=== PATIENT | female | born 1955 | race Hispanic/Latino ===

== ENCOUNTER 2019-06-05 11:36 | Emergency (ER) | payer MEDICARE ==
[2019-06-05 12:24] VITALS: BP 106/52
--- NOTE | 2019-06-05 12:27 | Emergency Department Report ---
ED General Adult HPI - General Chief complaint: Extremity Injury, Upper Stated complaint: FALL/RT ARM INJURY Time Seen by Provider: 06/05/19 12:01 Source: patient, EMS Mode of arrival: Stretcher Limitations: No Limitations - History of Present Illness Initial comments: She is a 63-year-old female past medical history of hypothyroidism who presents with right elbow pain. Patient states that she fell in the wet grass yesterday she is complaining of right elbow pain that is a 7 out of 10 as an achy type of pain moving makes it worse nothing makes it better. Severity scale (0 -10): 5 - Related Data Home Medications Medication Instructions Recorded Confirmed Last Taken Levothyroxine Sodium [Unithroid] 100 mcg PO DAILY 03/21/15 03/21/15 Unknown Previous Rx's Medication Instructions Recorded Last Taken Type Clindamycin [Clindamycin CAP] 300 mg PO Q8H #20 cap 03/22/15 Unknown Rx Ibuprofen [Motrin 600 MG tab] 600 mg PO Q6HR #20 tablet 03/22/15 Unknown Rx levoFLOXacin [Levaquin] 500 mg PO QDAY #7 tablet 03/22/15 Unknown Rx Oxycodone HCl/Acetaminophen 1 each PO Q6HR PRN #20 tablet 06/05/19 Unknown Rx [Percocet 7.5/325 mg] Allergies Allergy/AdvReac Type Severity Reaction Status Date / Time Penicillins Allergy Unknown Verified 03/19/15 11:54 Sulfa (Sulfonamide Allergy Unknown Verified 03/19/15 11:54 Antibiotics) ED Review of Systems ROS: Stated complaint: FALL/RT ARM INJURY Other details as noted in HPI Constitutional: denies: chills, fever Eyes: denies: eye pain, eye discharge, vision change ENT: denies: ear pain, throat pain Respiratory: denies: cough, shortness of breath, wheezing Cardiovascular: denies: chest pain, palpitations Endocrine: no symptoms reported Gastrointestinal: denies: abdominal pain, nausea, diarrhea Genitourinary: denies: urgency, dysuria, discharge Musculoskeletal: as per HPI, joint swelling, arthralgia. denies: back pain Skin: denies: rash, lesions Neurological: denies: headache, weakness, paresthesias Psychiatric: denies: anxiety, depression Hematological/Lymphatic: denies: easy bleeding, easy bruising ED Past Medical Hx - Past Medical History Hx Psychiatric Treatment: Yes (ETOH abuse) Additional medical history: "brain anureysm in 1990" - Surgical History Additional Surgical History: "brain anureysm" - Social History Smoking Status: Never Smoker Substance Use Type: None - Medications Home Medications: Home Medications Medication Instructions Recorded Confirmed Last Taken Type Levothyroxine Sodium [Unithroid] 100 mcg PO DAILY 03/21/15 03/21/15 Unknown History Clindamycin [Clindamycin CAP] 300 mg PO Q8H #20 cap 03/22/15 Unknown Rx Ibuprofen [Motrin 600 MG tab] 600 mg PO Q6HR #20 tablet 03/22/15 Unknown Rx levoFLOXacin [Levaquin] 500 mg PO QDAY #7 tablet 03/22/15 Unknown Rx Oxycodone HCl/Acetaminophen 1 each PO Q6HR PRN #20 tablet 06/05/19 Unknown Rx [Percocet 7.5/325 mg] ED Physical Exam - General Limitations: No Limitations General appearance: alert, in no apparent distress - Head Head exam: Present: atraumatic, normocephalic - Eye Eye exam: Present: normal appearance - ENT ENT exam: Present: mucous membranes moist - Neck Neck exam: Present: normal inspection - Respiratory Respiratory exam: Present: normal lung sounds bilaterally. Absent: respiratory distress - Cardiovascular Cardiovascular Exam: Present: regular rate, normal rhythm. Absent: systolic murmur, diastolic murmur, rubs, gallop - GI/Abdominal GI/Abdominal exam: Present: soft, normal bowel sounds - Extremities Exam Extremities exam: Present: tenderness, other - Back Exam Back exam: Present: normal inspection - Neurological Exam Neurological exam: Present: alert, oriented X3 - Psychiatric Psychiatric exam: Present: normal affect, normal mood - Skin Skin exam: Present: warm, dry, intact, normal color. Absent: rash ED Course Vital Signs 06/05/19 06/05/19 06/05/19 11:49 12:00 12:04 Temperature 98.1 F Pulse Rate 73 Respiratory 20 Rate Blood Pressure 118/53 116/53 Blood Pressure [Left] O2 Sat by Pulse 99 98 99 Oximetry 06/05/19 06/05/19 06/05/19 12:14 12:15 12:18 Temperature 98.1 F Pulse Rate 73 Respiratory 20 20 Rate Blood Pressure 106/52 Blood Pressure 116/53 [Left] O2 Sat by Pulse 97 99 Oximetry - Orthopedic Splinting/Casting Injury #1 Side: right Upper Extremity Injury Location: elbow Upper Extremity Immobilizer: sling/shoulder immobilize ED Medical Decision Making - Radiology Data Radiology results: report reviewed, image reviewed Elbow x-ray: Shows distal humerus fracture Forearm x-ray: Shows distal humerus fracture - Medical Decision Making Chief Medical diagnosis: Distal humerus fracture Prior to medical diagnosis: Mid shaft humerus fracture distal ulna fracture IV pain medication oral pain medication I will give patient referral to orthopedic surgeon Dr. Gomez Discussed plan with patient if she worsen plan additional verbal discharge instructions were given Critical care attestation.: If time is entered above; I have spent that time in minutes in the direct care of this critically ill patient, excluding procedure time. ED Disposition Clinical Impression: Humerus distal fracture Qualifiers: Encounter type: initial encounter Fracture type: closed Fracture morphology: other fracture Fracture alignment: displaced Laterality: right Qualified Code(s): S42.491A - Other displaced fracture of lower end of right humerus, initial encounter for closed fracture Disposition: DC- TO HOME OR SELFCARE Is pt being admited?: No Does the pt Need Aspirin: No Condition: Stable Instructions: Elbow Fracture in Adults (ED) Prescriptions: Oxycodone HCl/Acetaminophen [Percocet 7.5/325 mg] 1 each PO Q6HR PRN #20 tablet PRN Reason: Pain Referrals: NATIVIDAD SOARES MD [Primary Care Provider] - 3-5 Days LAUREEN GOMEZ MD [Staff Physician] - 3-5 Days
[2019-06-05] MEDS ORDERED: PERCOCET 5/325 PO ONE (12:29)
--- NOTE | 2019-06-05 13:27 | XRay Report ---
RIGHT FOREARM 2 VIEWS INDICATION / CLINICAL INFORMATION: Fall with right forearm pain. COMPARISON: None available. FINDINGS: BONES / JOINT(S): The bones are diffusely demineralized. There is an acute, comminuted supracondylar fracture. There is significant impaction and displacement of the fracture fragments. SOFT TISSUES: There is mild associated soft tissue swelling. ADDITIONAL FINDINGS: None. IMPRESSION: Acute, comminuted right supracondylar fracture. Signer Name: Roland Harman MD Signed: 06/05/2019 1:23 PM Workstation Name: [id number]
--- NOTE | 2019-06-05 13:38 | XRay Report ---
RIGHT ELBOW 2 VIEWS INDICATION / CLINICAL INFORMATION: Fall with right elbow pain. COMPARISON: None available. FINDINGS: BONES / JOINT(S): There is an acute, comminuted supracondylar fracture of the distal right humerus. T here is moderate displacement of the fracture fragments posteriorly. The fracture extends into the daniel int space medially. No associated dislocation is seen. The bones are diffusely demineralized. SOFT TISSUES: No significant abnormality. ADDITIONAL FINDINGS: None. IMPRESSION: Acute, comminuted supracondylar fracture of the right distal humerus with intra-articular extension. Signer Name: Roland Harman MD Signed: 06/05/2019 1:34 PM Workstation Name: [id number]
[2019-06-05] MEDS ORDERED: MORPHINE IV ONE (14:04)
[2019-06-05] MEDS ORDERED: ZOFRAN IV ONE (14:04)
[2019-06-05] MEDS ORDERED: ATIVAN ONE (14:09)
[2019-06-05] MEDS ORDERED: KEPPRA 1,000 MG/NS 0.75% 100ML 0 MG/0 ML BAG IV ONE (14:09)
== END 2019-06-05 15:45 | disposition home or self-care (01) ==
LOC: ED 11:36
DX: S42.421A Displaced comminuted supracondylar fracture without intercondylar fracture of right humerus, initial encounter for closed fracture (principal); Z79.899 Other long term (current) drug therapy; Z88.0 Allergy status to penicillin; Z88.2 Allergy status to sulfonamides; W18.30XA Fall on same level, unspecified, initial encounter; Y93.89 Activity, other specified; Y92.89 Other specified places as the place of occurrence of the external cause; Y99.8 Other external cause status
CPT/HCPCS: 29105; 73070; 73090; 96374; 96375; 99284; J2270; J2405; J1953; J2060

== ENCOUNTER 2019-06-07 13:54 | Inpatient (IN) | payer MEDICARE ==
--- NOTE | 2019-06-07 14:05 | Emergency Department Report ---
Blank Doc - Documentation Documentation: 63 y o female who presents with right arm pain, swellinga nd redness x 1 week states fall x 10 days ago X-rays ordered. Patient to be evaluated by many side provider
--- NOTE | 2019-06-07 14:27 | Emergency Department Report ---
ED General Adult HPI - General Chief complaint: Extremity Injury, Upper Stated complaint: RT ARM SWELLING Time Seen by Provider: 06/07/19 14:02 Source: patient, EMS Mode of arrival: Ambulatory Limitations: No Limitations - History of Present Illness Initial comments: 63-year-old female returns to the emergency department for reevaluation of an elbow injury. Apparently she has been noncompliant with her orthopedic follow- up as well as her splinting. She has removed her splint. She is poorly cooperative to questioning. She stated on 06/05/2019 that she had fallen on the wet grass on 06/04/2019. Her triage note states that she is giving a history of falling 10 days ago now. She has a history of bipolar disorder and a cerebral aneurysm. She is giving me and an inaccurate history of being diagnosed with a "bone spur". - Related Data Home Medications Medication Instructions Recorded Confirmed Last Taken Levothyroxine Sodium [Unithroid] 100 mcg PO DAILY 03/21/15 03/21/15 Unknown Previous Rx's Medication Instructions Recorded Last Taken Type Clindamycin [Clindamycin CAP] 300 mg PO Q8H #20 cap 03/22/15 Unknown Rx Ibuprofen [Motrin 600 MG tab] 600 mg PO Q6HR #20 tablet 03/22/15 Unknown Rx levoFLOXacin [Levaquin] 500 mg PO QDAY #7 tablet 03/22/15 Unknown Rx Oxycodone HCl/Acetaminophen 1 each PO Q6HR PRN #20 tablet 06/05/19 Unknown Rx [Percocet 7.5/325 mg] Allergies Allergy/AdvReac Type Severity Reaction Status Date / Time Penicillins Allergy Unknown Verified 03/19/15 11:54 Sulfa (Sulfonamide Allergy Unknown Verified 03/19/15 11:54 Antibiotics) ED Review of Systems ROS: Stated complaint: RT ARM SWELLING Other details as noted in HPI Comment: Unobtainable due to pts medical conditions (patient complains of swelling of her arm but not active pain. Poorly communicative patient) ED Past Medical Hx - Past Medical History Previous Medical History?: Yes Hx Psychiatric Treatment: Yes (ETOH abuse) Additional medical history: "brain anureysm in 1990" - Surgical History Past Surgical History?: Yes Additional Surgical History: "brain anureysm" - Social History Smoking Status: Current Every Day Smoker Substance Use Type: None - Medications Home Medications: Home Medications Medication Instructions Recorded Confirmed Last Taken Type Levothyroxine Sodium [Unithroid] 100 mcg PO DAILY 03/21/15 03/21/15 Unknown History Clindamycin [Clindamycin CAP] 300 mg PO Q8H #20 cap 03/22/15 Unknown Rx Ibuprofen [Motrin 600 MG tab] 600 mg PO Q6HR #20 tablet 03/22/15 Unknown Rx levoFLOXacin [Levaquin] 500 mg PO QDAY #7 tablet 03/22/15 Unknown Rx Oxycodone HCl/Acetaminophen 1 each PO Q6HR PRN #20 tablet 06/05/19 Unknown Rx [Percocet 7.5/325 mg] ED Physical Exam - General Limitations: Other (poor cooperation) General appearance: alert, in no apparent distress - Head Head exam: Present: atraumatic, normocephalic - Eye Eye exam: Present: normal appearance. Absent: scleral icterus - ENT ENT exam: Present: mucous membranes moist - Neck Neck exam: Present: normal inspection - Respiratory Respiratory exam: Present: normal lung sounds bilaterally. Absent: respiratory distress - Cardiovascular Cardiovascular Exam: Present: regular rate, normal rhythm. Absent: systolic murmur, diastolic murmur, rubs, gallop - GI/Abdominal GI/Abdominal exam: Present: soft, normal bowel sounds. Absent: distended, tenderness, guarding, rebound - Extremities Exam Extremities exam: Present: other (ecchymotic right upper extremity. Soft tissue swelling and deformity of the right elbow. Limited range of motion. Distally neurovascular exam is grossly intact. The arm is not tense. There is no palpable cord or suggestion of DVT.) - Back Exam Back exam: Present: normal inspection - Neurological Exam Neurological exam: Present: alert, oriented X3, CN II-XII intact (abbreviated exam). Absent: motor sensory deficit (Limited exam due to poor patient cooperation) - Psychiatric Psychiatric exam: Present: normal affect, normal mood - Skin Skin exam: Present: warm, dry, intact, normal color. Absent: rash ED Course Vital Signs 06/07/19 14:04 Temperature 98.2 F Pulse Rate 66 Respiratory 18 Rate Blood Pressure 100/45 O2 Sat by Pulse 96 Oximetry - Reevaluation(s) Reevaluation #1: X-ray images sent to orthopedist. I presume the patient will be admitted for surgical care. 06/07/19 14:50 Reevaluation #2: Discussed with orthopedics. Report of venous Doppler is negative. Triphasic arterial flow throughout. 06/07/19 15:06 06/07/19 15:08 Labs are yet pending. Discussed with hospitalist. They will be admitting. Critical care attestation.: If time is entered above; I have spent that time in minutes in the direct care of this critically ill patient, excluding procedure time. ED Disposition Clinical Impression: Displaced fracture of distal end of humerus Bipolar disorder Qualifiers: Active/Remission status: remission status unspecified Qualified Code(s): F31.9 - Bipolar disorder, unspecified Disposition: OP ADMIT IP TO THIS HOSP Is pt being admited?: Yes Does the pt Need Aspirin: Yes Condition: Stable Time of Disposition: 15:10
[2019-06-07] MEDS ORDERED: NACL 0.9% 1000 ML 1,000 ML IV ONE (14:30)
[2019-06-07] MEDS ORDERED: BABY ASPIRIN PO ONE (15:10)
--- NOTE | 2019-06-07 15:28 | Vascular Lab Report ---
Right upper extremity vascular Ultrasound HISTORY: pain, swelling. Right arm pain and swelling after a fall 2 days ago TECHNIQUE: Grayscale and color Doppler imaging performed. COMPARISON: None FINDINGS: No thrombus identified from the level of the right internal jugular vein through the subcla vian, axillary, brachial, basilic, radial, or ulnar veins. IMPRESSION: No thrombus identified. Signer Name: Shawn Goldstein MD Signed: 06/07/2019 3:23 PM Workstation Name: [id number]
[2019-06-07] MEDS ORDERED: SODIUM CHLORIDE FLUSH SYRINGE 10 ML IV PRN (15:37)
[2019-06-07] MEDS ORDERED: PROVENTIL IH PRN (15:37)
[2019-06-07] MEDS ORDERED: TYLENOL PO PRN (15:37)
--- NOTE | 2019-06-07 15:37 | History and Physical Report ---
History of Present Illness Chief complaint: My arm hurts History of present illness: 63 YO Female with Severe malnutrition, ETOH Dependence, Nicotine Dependence, Bipolar Disorder presents to ED for evaluation. Pt reports that she fell on wet grass on 06/04/19 and injured her right arm. PT seen and evaluated in ED on 06/05/19 and discharged home. Pt presents to ED for reevaluation. Pt reports pain and swelling in her right arm over the past 2 days. Pt states that pain is 5-7/10, constant, worse with movement, relieved with nonmovement. Pt denies numbness of lack of sensation to her distal right extremity. Pt also denies fever, chills, CP, Palpitations, NVD, Headache, BRBPR, trauma, or recent ill contacts. EMS notified, and upon arrival the patient found to be in distress. Pt transported to [facility]. Pt seen and evaluated in ED and found to have Right Humerus Fracture, Severe Malnutrition. Pt also found to have incidental finding of SHIMON Lung nodule. Ortho Surgery consulted in ED. Pt admitted to surgical floor. Pt i nitiated on [facility] protocol. No prior admission for review. All listed medication reconciled at time of admission. Past History Past Medical History: other (Biopolar, Severe Malnutrution) Past Surgical History: Other (brain aneurysm surgery) Social history: single, smoking, alcohol abuse Family history: no significant family history (reviewed) Medications and Allergies Allergies Allergy/AdvReac Type Severity Reaction Status Date / Time Penicillins Allergy Unknown Verified 03/19/15 11:54 Sulfa (Sulfonamide Allergy Unknown Verified 03/19/15 11:54 Antibiotics) Home Medications Medication Instructions Recorded Confirmed Last Taken Type Levothyroxine Sodium [Unithroid] 100 mcg PO DAILY 03/21/15 03/21/15 Unknown History Clindamycin [Clindamycin CAP] 300 mg PO Q8H #20 cap 03/22/15 Unknown Rx Ibuprofen [Motrin 600 MG tab] 600 mg PO Q6HR #20 tablet 03/22/15 Unknown Rx levoFLOXacin [Levaquin] 500 mg PO QDAY #7 tablet 03/22/15 Unknown Rx Oxycodone HCl/Acetaminophen 1 each PO Q6HR PRN #20 tablet 06/05/19 Unknown Rx [Percocet 7.5/325 mg] Active Meds: Active Medications Sodium Chloride (Nacl 0.9% 1000 Ml) 1,000 mls @ 125 mls/hr IV ONCE ONE Stop: 06/07/19 22:29 Last Admin: 06/07/19 15:31 Dose: 125 mls/hr Documented by: Review of Systems Constitutional: no weight loss, no weight gain, no fever, no chills Ears, nose, mouth and throat: no ear pain, no ear discharge, no tinnitis, no decreased hearing, no nasal congestion, no nasal discharge Breasts: no change in shape, no swelling, no mass Cardiovascular: no chest pain, no rapid/irregular heart beat, no edema Respiratory: no cough, no cough with sputum, no excessive sputum, no hemoptysis, no shortness of breath Gastrointestinal: no abdominal pain, no nausea, no vomiting, no diarrhea, no constipation, no change in bowel habits Genitourinary Female: no pelvic pain, no flank pain, no menorrhagia, no dysuria, no urinary frequency Rectal: no pain, no incontinence, no bleeding Musculoskeletal: other (right arm pain), no neck pain, no shooting arm pain, no arm numbness/tingling, no low back pain Integumentary: no rash, no pruritis, no redness, no sores, no wounds Neurological: no transient paralysis, no paralysis, no parathesias, no numbness, no tingling, no seizures, no syncope Psychiatric: no memory loss, no change in sleep habits, no insomnia, no hype rsomnia, no change in libido, no suicidal ideation, no disorientation Endocrine: no cold intolerance, no heat intolerance, no polyphagia, no excessive thirst, no polydipsia, no polyuria, no nocturia Hematologic/Lymphatic: no easy bruising, no easy bleeding, no lymphadenopathy, no lymphedema Allergic/Immunologic: no urticaria, no allergic rhinitis, no wheezing, no persistent infections, no anaphylaxis Exam - Constitutional Vitals: Temp Pulse Resp BP Pulse Ox 98.2 F 66 18 100/45 96 06/07/19 14:04 06/07/19 14:04 06/07/19 14:04 06/07/19 14:04 06/07/19 14:04 General appearance: Present: mild distress - EENT Eyes: Present: PERRL ENT: hearing intact, clear oral mucosa - Neck Neck: Present: supple, normal ROM - Respiratory Respiratory effort: normal Respiratory: bilateral: CTA - Cardiovascular Heart Sounds: Present: S1 & S2. Absent: rub, click - Extremities Extremities: pulses symmetrical Extremity abnormal: edema, erythema, tenderness, other (RUE swelling, tenderness) Peripheral Pulses: within normal limits - Abdominal General gastrointestinal: Present: soft, non-tender, non-distended, normal bowel sounds Female genitourinary: Present: normal - Integumentary Integumentary: Present: clear, warm, dry - Musculoskeletal Musculoskeletal: gait normal, strength equal bilaterally - Psychiatric Psychiatric: appropriate mood/affect, intact judgment & insight - Neurologic Neurologic: CNII-XII intact, moves all extremities Results - Labs CBC & Chem 7: 06/07/19 15:13 06/07/19 15:13 Labs: Abnormal lab results 06/07/19 Range/Units 14:10 D-Dimer 1182.37 H (0-234) ng/mlDDU Assessment and Plan - Patient Problems (1) Severe malnutrition Current Visit: Yes Status: Acute Plan to address problem: Encourage increased protein intake, dietary supplementation, (2) EtOH dependence Current Visit: Yes Status: Acute Qualifiers: Complication of substance-induced condition: uncomplicated Plan to address problem: CIWA protocol, Banana bag, Blood alcohol level, thiamine, folic acid, multivitamin daily. (3) Nicotine dependence Current Visit: Yes Status: Acute Qualifiers: Nicotine product type: cigarettes Substance use status: in withdrawal Qualified Code(s): F17.213 - Nicotine dependence, cigarettes, with withdrawal Plan to address problem: Smoking cessation counseling, +15 minutes. (4) Lung nodule Current Visit: Yes Status: Acute Plan to address problem: Repeat CT chest in 6-12 months, F/U pcp at discharge. (5) Bipolar disorder Current Visit: No Status: Acute Qualifiers: Active/Remission status: remission status unspecified Qualified Code(s): F31.9 - Bipolar disorder, unspecified Plan to address problem: Continue current therapy, supportive care. (6) Humerus distal fracture Current Visit: No Status: Acute Qualifiers: Encounter type: initial encounter Fracture type: closed Fracture morphology: other fracture Fracture alignment: displaced Laterality: right Qualified Code(s): S42.491A - Other displaced fracture of lower end of right h umerus, initial encounter for closed fracture Plan to address problem: Ortho consulted in ED. NPO after midnight, pending surgical intervention. (7) DVT prophylaxis Current Visit: Yes Status: Acute Plan to address problem: SCD to BLE while in bed, prophylactic lovenox
--- NOTE | 2019-06-07 15:50 | XRay Report ---
RIGHT ELBOW, 2 VIEWS RIGHT FOREARM, 2 VIEWS INDICATION: Right arm pain and swelling for 2 days. Patient fell on arm 10 days ago.. COMPARISON: None. IMPRESSION: There is borderline to mild osteopenia. A severely comminuted and displaced fracture of the distal right humerus is identified which extends to the right elbow joint. The radius and ulna ar e grossly intact. Large hemarthrosis and diffuse soft tissue swelling are noted. Consultation with orthopedics is recommended. Signer Name: Terence Henao Jr, MD Signed: 06/07/2019 3:46 PM Workstation Name: [id number]
[2019-06-07 16:01] LABS: Basophils % (Auto) 0.7 % (0.0-1.8); Eosinophils # (Auto) 0.1 K/mm3 (0.0-0.4); Hematocrit 37.7 % (30.3-42.9); Hemoglobin 12.8 gm/dl (10.1-14.3); Lymphocytes # (Auto) 1.7 K/mm3 (1.2-5.4); Lymphocytes % (Auto) 24.7 % (13.4-35.0); Mean Corpuscular HGB Conc 34 % (30-34); Mean Corpuscular Volume 88 fl (79-97); Monocytes # (Auto) 0.6 K/mm3 (0.0-0.8); Monocytes % (Auto) 9.4 % (0.0-7.3); Platelet Count 287 K/mm3 (140-440); Red Blood Count 4.29 M/mm3 (3.65-5.03); Red Cell Distribution Width 13.1 % (13.2-15.2)
[2019-06-07] MEDS: ZOFRAN IV PRN (16:18)
[2019-06-07] MEDS: MORPHINE IV PRN (16:18)
[2019-06-07 16:27] LABS: Alanine Aminotransferase 11 units/L (7-56); Albumin 3.9 g/dL (3.9-5); BUN/Creatinine Ratio 37; Blood Urea Nitrogen 26 mg/dL (7-17); Calcium 9.3 mg/dL (8.4-10.2); Hemolysis Index 4
[2019-06-07 16:30] LABS: Bilirubin,Direct < 0.2 mg/dL (0-0.2)
--- NOTE | 2019-06-07 17:48 | Cat Scan Report ---
CTA CHEST WITH IV CONTRAST INDICATION: Dyspnea. TECHNIQUE: Axial CT images were obtained through the chest after injection of IV contrast. 3 plane MIP reconstru ctions were produced. All CT scans at this location are performed using CT dose reduction for ALARA b y means of automated exposure control. COMPARISON: None available. FINDINGS: Pulmonary Arteries: No pulmonary emboli. Lungs: No focal consolidation or other acute finding. Mild centrilobular emphysema with upper lobe pr edominance. Small 4 to 5 mm peripheral nodules in the lateral left upper lobe. Trachea and Bronchi: No significant abnormality. Heart and Pericardium: No significant abnormality. Vasculature: No significant abnormality. Lymphatics: No lymphadenopathy. Additional Findings: None. Upper Abdomen: Multiple pancreatic calcifications with pancreatic atrophy in keeping with chronic rees creatitis. Skeletal Structures: No significant osseous abnormality. IMPRESSION: 1. No CT evidence for pulmonary embolism. 2. No acute findings. 3. Findings in the upper abdomen consistent with chronic pancreatitis. 4. Incidental pulmonary nodule measuring 4-5 mm located in the lateral left upper lobe. See below for follow-up recommendation. Nodule size >4-6 mm Low-Risk Patient: follow-up at CT at 12 months; if unchanged, no further follow-up High-Risk Patient: initial follow-up CT at 6-12 months, then at 18-24 months if no change Low-Risk Patient - minimal or absent history of smoking and of other known risk factors. High-Risk Patient - history of smoking or of other known risk factors. * Average of length and width The risk of malignancy in this category (<1%) is substantially less than that in a baseline CT scan of an asymptomatic smoker. Nonsolid (ground-glass) or partly solid nodules may require longer follow-up to exclude indolent Gaby nocarcinoma. Signer Name: Sampson Freeman MD Signed: 06/07/2019 5:44 PM Workstation Name: [email or web address]
[2019-06-07] MEDS ORDERED: PERCOCET 5/325 ONE (18:33)
[2019-06-07] MEDS: PERCOCET 5/325 PO PRN (18:41)
[2019-06-07] MEDS ORDERED: VITAMIN B-1 100 MG, FOLVITE 1 MG, INFUVITE 10 ML in NACL 0.9% 1000 ML 1,000 ML IV ONE (20:08)
[2019-06-07] MEDS: SODIUM CHLORIDE FLUSH SYRINGE 10 ML IV SCH (22:23)
[2019-06-07] MEDS: PEPCID PO SCH (22:24)
[2019-06-07] MEDS: LOVENOX SUB-Q SCH (22:24)
[2019-06-07] MEDS: ATIVAN IV PRN (22:39)
[2019-06-08] MEDS: MORPHINE IV PRN ×2 (02:50→13:09)
[2019-06-08] MEDS: ZOFRAN IV PRN (02:52)
[2019-06-08 04:42] LABS: Basophils # (Auto) 0.1 K/mm3 (0.0-0.1); Basophils % (Auto) 1.1 % (0.0-1.8); Eosinophils # (Auto) 0.2 K/mm3 (0.0-0.4); Eosinophils % (Auto) 3.1 % (0.0-4.3); Hematocrit 33.8 % (30.3-42.9); Hemoglobin 11.6 gm/dl (10.1-14.3); Lymphocytes # (Auto) 1.7 K/mm3 (1.2-5.4); Lymphocytes % (Auto) 30.5 % (13.4-35.0); Mean Corpuscular HGB Conc 34 % (30-34); Mean Corpuscular Volume 88 fl (79-97); Monocytes # (Auto) 0.5 K/mm3 (0.0-0.8); Monocytes % (Auto) 9.4 % (0.0-7.3); Platelet Count 255 K/mm3 (140-440); Red Blood Count 3.84 M/mm3 (3.65-5.03); Red Cell Distribution Width 13.2 % (13.2-15.2)
[2019-06-08 04:51] LABS: BUN/Creatinine Ratio 30; Blood Urea Nitrogen 18 mg/dL (7-17); Calcium 8.4 mg/dL (8.4-10.2); Hemolysis Index 11
[2019-06-08] MEDS: SYNTHROID PO SCH (10:08)
[2019-06-08] MEDS: PEPCID PO SCH ×2 (10:08→22:25)
[2019-06-08] MEDS: THERAGRAN Tab PO SCH (10:08)
[2019-06-08] MEDS: FOLVITE PO SCH (10:09)
[2019-06-08] MEDS: VITAMIN B-1 PO SCH (10:09)
--- NOTE | 2019-06-08 11:51 | Cat Scan Report ---
CT of the right humerus without contrast INDICATION: Distal right humerus fracture. TECHNIQUE: CT of the right humerus without contrast. All CT scans at this location are performed using CT dose r eduction for ALARA by means of automated exposure control. COMPARISON: None available. FINDINGS: There is a comminuted intra-articular fracture of the distal right humerus. The medial epicondyles is posteriorly and medially displaced from the remainder of the distal humerus by bowel 1.7 cm. There i s significant comminution of the lateral epicondyles as well. The the capitellum and trochlea are med ially and posteriorly displaced from the humeral shaft each by about 1.5 cm. There is no definite fracture of the proximal ulna or radius. There is a moderate joint effusion and significant surrounding subcutaneous soft tissue edema. There is no appreciable underlying osseous ma ss lesion, although there is mild generalized subjective osteopenia. IMPRESSION: 1. Significantly comminuted and displaced distal humeral fracture with significant medial and posteri or displacement of the capitellum and trochlea from the distal humeral shaft as detailed above. Signer Name: Sampson Freeman MD Signed: 06/08/2019 11:46 AM Workstation Name: [id number]
[2019-06-08] MEDS: HABITROL TD SCH (13:12)
[2019-06-08] MEDS: SODIUM CHLORIDE FLUSH SYRINGE 10 ML IV SCH ×2 (13:18→22:25)
--- NOTE | 2019-06-08 15:18 | Progress Note ---
Assessment and Plan Assessment and plan: --S/P Mechanical Fall Fall precautions, physical therapy occupational therapy --Humerus/distal comminuted displaced facture Ortho evaluated NPO after midnight, pending surgical procedure tomorrow --Severe malnutrition Encourage increased oral intake, dietary supplementation, nutrition consult --EtOH dependence/withdrawal symptoms [facility] protocol, thiamine, folic acid, multivitamin daily. IV fluids if needed --Nicotine dependence Smoking cessation counseling, Nicotine patch as needed --Elevated d-dimers : CTA chest negative for PE, chr. pancreatitis, pulmonary nodule [place] venous Doppler negative for DVT -- Lung nodule Repeat CT chest in 6-12 months, F/U pcp/pulmonary at [facility] for further evaluation outpatient --History of Bipolar disorder Continue current therapy, psych evaluation --Depression; antidepressant medications, psych evaluation no suicidal thoughts or ideation, --DVT prophylaxis SCD to BLE while in bed, prophylactic lovenox Monitor closely and adjust the management as needed Plan of care reviewed with the patient and her nurse History Interval history: 63yr old female patient was admitted through emergency room with history of fall and fractured her right humerus comminuted and displaced distal humeral fracture with significant medial and posterior displacement. Admitted to the hospital symptomatically managed, contact orthopedic surgeon, possible surgery tomorrow Patient feels slightly better complains of severe pain, very upset, complains of severe depression and anxiety Hospitalist Physical - Constitutional Vitals: Temp Pulse Resp BP Pulse Ox 98.0 F 67 16 96/45 95 06/08/19 11:25 06/08/19 11:25 06/08/19 11:25 06/08/19 11:25 06/08/19 11:25 General appearance: Present: mild distress, cachectic, disheveled - EENT Eyes: Present: PERRL, EOM intact - Neck Neck: Present: supple, normal ROM - Respiratory Respiratory effort: normal Respiratory: bilateral: diminished, negative: rales, rhonchi, wheezing - Cardiovascular Rhythm: regular Heart Sounds: Present: S1 & S2 - Extremities Extremities: no ischemia, No edema, abnormal (right humerus fracture, swelling and pain) - Abdominal General gastrointestinal: soft, non-tender, non-distended, normal bowel sounds - Integumentary Integumentary: Present: clear, warm - Psychiatric Psychiatric: appropriate mood/affect, cooperative - Neurologic Neurologic: CNII-XII intact, moves all extremities Results - Labs CBC & Chem 7: 06/08/19 03:46 06/08/19 03:46 Labs: Laboratory Last Values WBC 5.5 K/mm3 (4.5-11.0) 06/08/19 03:46 RBC 3.84 M/mm3 (3.65-5.03) 06/08/19 03:46 Hgb 11.6 gm/dl (10.1-14.3) 06/08/19 03:46 Hct 33.8 % (30.3-42.9) 06/08/19 03:46 MCV 88 fl (79-97) 06/08/19 03:46 MCH 30 pg (28-32) 06/08/19 03:46 MCHC 34 % (30-34) 06/08/19 03:46 RDW 13.2 % (13.2-15.2) 06/08/19 03:46 Plt Count 255 K/mm3 (140-440) 06/08/19 03:46 Lymph % (Auto) 30.5 % (13.4-35.0) 06/08/19 03:46 [place] % (Auto) 9.4 % (0.0-7.3) H 06/08/19 03:46 Eos % (Auto) 3.1 % (0.0-4.3) 06/08/19 03:46 Baso % (Auto) 1.1 % (0.0-1.8) 06/08/19 03:46 Lymph # 1.7 K/mm3 (1.2-5.4) 06/08/19 03:46 [place] # 0.5 K/mm3 (0.0-0.8) 06/08/19 03:46 Eos # 0.2 K/mm3 (0.0-0.4) 06/08/19 03:46 Baso # 0.1 K/mm3 (0.0-0.1) 06/08/19 03:46 Seg Neutrophils % 55.9 % (40.0-70.0) 06/08/19 03:46 Seg Neutrophils # 3.0 K/mm3 (1.8-7.7) 06/08/19 03:46 1182.37 ng/mlDDU (0-234) H 06/07/19 14:10 Sodium 139 mmol/L (137-145) 06/08/19 03:46 Potassium 3.6 mmol/L (3.6-5.0) 06/08/19 03:46 Chloride 109.1 mmol/L (98-107) H 06/08/19 03:46 Carbon Dioxide 22 mmol/L (22-30) 06/08/19 03:46 12 mmol/L 06/08/19 03:46 BUN 18 mg/dL (7-17) H 06/08/19 03:46 0.6 mg/dL (0.7-1.2) L 06/08/19 03:46 Estimated GFR > 60 ml/min 06/08/19 03:46 30 % 06/08/19 03:46 Glucose 104 mg/dL (65-100) H 06/08/19 03:46 Calcium 8.4 mg/dL (8.4-10.2) 06/08/19 03:46 0.50 mg/dL (0.1-1.2) 06/07/19 15:13 < 0.2 mg/dL (0-0.2) 06/07/19 15:13 0.3 mg/dL 06/07/19 15:13 AST 19 units/L (5-40) 06/07/19 15:13 ALT 11 units/L (7-56) 06/07/19 15:13 89 units/L (35-129) 06/07/19 15:13 6.8 g/dL (6.3-8.2) 06/07/19 15:13 3.9 g/dL (3.9-5) 06/07/19 15:13 1.3 % 06/07/19 15:13 Plasma/Serum Alcohol < 0.01 % (0-0.07) 06/07/19 21:11 Active Medications - Current Medications Current Medications: Generic Name Dose Route Start Last Admin Trade Name Freq PRN Reason Stop Dose Admin Acetaminophen 650 mg 06/07/19 15:37 Tylenol PO Q4H PRN Pain MILD(1-3)/Fever >100.5/MONTANO Albuterol 2.5 mg 06/07/19 15:37 Proventil IH Q4HRT PRN Shortness Of Breath Enoxaparin Sodium 40 mg 06/07/19 21:00 07/09/19 22:24 Lovenox SUB-Q 40 mg QDAY@2200 ROMAN Administration Famotidine 20 mg 06/07/19 22:00 06/07/19 22:24 Pepcid PO 20 mg BID ROMAN Administration Folic Acid 1 mg 06/08/19 10:00 Folvite PO QDAY [facility] Levothyroxine Sodium 100 mcg 06/08/19 10:00 Synthroid PO DAILY [facility] Lorazepam 2 mg 06/07/19 20:08 06/07/19 22:39 Ativan IV 2 mg Q1HR PRN Administration CIWA-Ar 8-15 Morphine Sulfate 2 mg 06/07/19 15:37 06/08/19 13:09 Morphine IV 2 mg Q4H PRN Administration Pain, Moderate (4-6) Multivitamins 1 each 06/08/19 10:00 Theragran Tab PO QDAY [facility] Nicotine 14 mg 06/08/19 14:00 06/08/19 13:12 Habitrol TD 14 mg QDAY [facility]AN Administration Ondansetron HCl 4 mg 06/07/19 15:37 06/08/19 02:52 Zofran IV 4 mg Q8H PRN Administration Nausea And Vomiting Oxycodone/Acetaminophen 1 tab 06/07/19 15:37 06/07/19 18:41 Percocet 5/325 PO 1 tab Q6H PRN Administration Pain, Moderate (4-6) Sodium Chloride 10 ml 06/07/19 22:00 06/08/19 13:18 Sodium Chloride Flush Syringe 10 Ml IV 10 ml BID ROMAN Administration Sodium Chloride 10 ml 06/07/19 15:37 Sodium Chloride Flush Syringe 10 Ml IV PRN PRN LINE FLUSH Thiamine HCl 100 mg 06/08/19 10:00 Vitamin B-1 PO QDAY [facility]
[2019-06-08] MEDS: ATIVAN IV PRN (15:26)
[2019-06-08] MEDS ORDERED: LOVENOX SUB-Q SCH (20:43)
[2019-06-08] MEDS: PERCOCET 5/325 PO PRN (21:14)
[2019-06-08] MEDS: LOVENOX SUB-Q SCH (22:25)
[2019-06-09] MEDS: SYNTHROID PO SCH (10:42)
[2019-06-09] MEDS: FOLVITE PO SCH (10:42)
[2019-06-09] MEDS: PEPCID PO SCH ×2 (10:42→21:32)
[2019-06-09] MEDS: VITAMIN B-1 PO SCH (10:43)
[2019-06-09] MEDS: THERAGRAN Tab PO SCH (10:43)
[2019-06-09] MEDS ORDERED: VANCOMYCIN IV ONE (12:35)
[2019-06-09] MEDS ORDERED: SUBLIMAZE IV ONE ×2 (12:38→13:16)
--- NOTE | 2019-06-09 12:42 | Anesthesia Consultation ---
Anesthesia Consult and Med Hx Date of service: 06/09/19 - Airway Anesthetic Teeth Evaluation: Poor ROM Head & Neck: Adequate Mental/Hyoid Distance: Adequate Mallampati Class: Class II Intubation Access Assessment: Good - Pulmonary Exam CTA: Yes - Cardiac Exam Cardiac Exam: No Murmur - Pre-Operative Health Status ASA Pre-Surgery Classification: ASA3 Proposed Anesthetic Plan: General Nerve Block: IS - Pulmonary Hx Smoking: Yes - Central Nervous System Hx Psychiatric Problems: Yes - Endocrine Hx Hypothyroidism: Yes - Other Systems Hx Cancer: No
--- NOTE | 2019-06-09 12:42 | Anesthesia Day of Surgery ---
Anesthesia Day of Surgery - Day of Surgery Patient Examined: Yes Patient H&P Reviewed: Yes Patient is NPO: Yes
[2019-06-09] MEDS ORDERED: MARCAINE-EPI 0.25%-1:200,000 INFILTRATI ONE (12:46)
[2019-06-09] MEDS ORDERED: NEOSPORIN GU IR ONE (12:46)
[2019-06-09] MEDS: LACTATED RINGERS 1,000 ML IV SCH (12:50)
[2019-06-09] MEDS ORDERED: XYLOCAINE CARDIAC IV ONE (12:58)
[2019-06-09] MEDS ORDERED: DIPRIVAN 10 MG/ML IV ONE (12:58)
[2019-06-09] MEDS ORDERED: MARCAINE 0.5% INFILTRATI NR (13:00)
[2019-06-09] MEDS ORDERED: VANCOMYCIN 750 MG in NACL 0.9% 250ML 250 ML IV NR (13:00)
[2019-06-09] MEDS ORDERED: LACTATED RINGERS 1,000 ML IV SCH (13:00)
[2019-06-09] MEDS ORDERED: VERSED IV NR ×2 (13:00)
[2019-06-09] MEDS ORDERED: NEURONTIN PO SCH (13:00)
[2019-06-09] MEDS ORDERED: DECADRON IV NR (13:00)
[2019-06-09] MEDS ORDERED: NEURONTIN PO NR (13:00)
[2019-06-09] MEDS ORDERED: SUBLIMAZE ONE ×2 (13:03→16:53)
[2019-06-09] MEDS ORDERED: NACL 0.9% IR ONE (14:08)
--- NOTE | 2019-06-09 14:32 | Progress Note ---
Assessment and Plan Assessment and plan: 63yr old female patient was admitted through emergency room with history of fall and fractured her right humerus comminuted and displaced distal humeral fracture with significant medial and posterior displacement. Admitted to the hospital symptomatically managed, contact orthopedic surgeon, possible surgery tomorrow Patient feels slightly better complains of severe pain, very upset, complains of severe depression and anxiety --S/P Mechanical Fall Fall precautions, physical therapy occupational therapy --Humerus/distal comminuted displaced facture Ortho evaluated NPO after midnight, pending surgical procedure TODAY --Severe malnutrition Encourage increased oral intake, dietary supplementation, nutrition consult --EtOH dependence/withdrawal symptoms [facility] protocol, thiamine, folic acid, multivitamin daily. IV fluids if needed --Nicotine dependence Smoking cessation counseling, Nicotine patch as needed --Elevated d-dimers : CTA chest negative for PE, chr. pancreatitis, pulmonary nodule [place] venous Doppler negative for DVT -- Lung nodule Repeat CT chest in 6-12 months, F/U pcp/pulmonary at [facility] for further evaluation outpatient --History of Bipolar disorder Continue current therapy, psych evaluation --Depression; antidepressant medications, psych evaluation no suicidal thoughts or ideation, --DVT prophylaxis SCD to BLE while in bed, prophylactic lovenox Monitor closely and adjust the management as needed Plan of care reviewed with the patient and her nurse History Interval history: Patient seen and examined, for or this am. Hospitalist Physical - Physical exam Narrative exam: General appearance: Present: mild distress, cachectic, - EENT Eyes: Present: PERRL, EOM intact - Neck Neck: Present: supple, normal ROM - Respiratory Respiratory effort: normal Respiratory: bilateral: diminished, negative: rales, rhonchi, wheezing - Cardiovascular Rhythm: regular Heart Sounds: Present: S1 & S2 - Extremities Extremities: no ischemia, No edema, abnormal (right humerus fracture, swelling and pain) - Abdominal General gastrointestinal: soft, non-tender, non-distended, normal bowel sounds - Integumentary Integumentary: Present: clear, warm - Psychiatric Psychiatric: appropriate mood/affect, cooperative - Neurologic Neurologic: CNII-XII intact, moves all extremities - Constitutional Vitals: Temp Pulse Resp BP Pulse Ox 98.5 F 66 14 105/50 99 06/09/19 12:45 06/09/19 13:20 06/09/19 13:20 06/09/19 13:20 06/09/19 13:20 General appearance: Present: mild distress, cachectic, disheveled Results - Labs CBC & Chem 7: 06/10/19 03:49 06/08/19 03:46 Labs: Laboratory Last Values WBC 5.5 K/mm3 (4.5-11.0) 06/08/19 03:46 RBC 3.84 M/mm3 (3.65-5.03) 06/08/19 03:46 Hgb 11.6 gm/dl (10.1-14.3) 06/08/19 03:46 Hct 33.8 % (30.3-42.9) 06/08/19 03:46 MCV 88 fl (79-97) 06/08/19 03:46 MCH 30 pg (28-32) 06/08/19 03:46 MCHC 34 % (30-34) 06/08/19 03:46 RDW 13.2 % (13.2-15.2) 06/08/19 03:46 Plt Count 255 K/mm3 (140-440) 06/08/19 03:46 Lymph % (Auto) 30.5 % (13.4-35.0) 06/08/19 03:46 [place] % (Auto) 9.4 % (0.0-7.3) H 06/08/19 03:46 Eos % (Auto) 3.1 % (0.0-4.3) 06/08/19 03:46 Baso % (Auto) 1.1 % (0.0-1.8) 06/08/19 03:46 Lymph # 1.7 K/mm3 (1.2-5.4) 06/08/19 03:46 [place] # 0.5 K/mm3 (0.0-0.8) 06/08/19 03:46 Eos # 0.2 K/mm3 (0.0-0.4) 06/08/19 03:46 Baso # 0.1 K/mm3 (0.0-0.1) 06/08/19 03:46 Seg Neutrophils % 55.9 % (40.0-70.0) 06/08/19 03:46 Seg Neutrophils # 3.0 K/mm3 (1.8-7.7) 06/08/19 03:46 1182.37 ng/mlDDU (0-234) H 06/07/19 14:10 Sodium 139 mmol/L (137-145) 06/08/19 03:46 Potassium 3.6 mmol/L (3.6-5.0) 06/08/19 03:46 Chloride 109.1 mmol/L (98-107) H 06/08/19 03:46 Carbon Dioxide 22 mmol/L (22-30) 06/08/19 03:46 12 mmol/L 06/08/19 03:46 BUN 18 mg/dL (7-17) H 06/08/19 03:46 0.6 mg/dL (0.7-1.2) L 06/08/19 03:46 Estimated GFR > 60 ml/min 06/08/19 03:46 30 % 06/08/19 03:46 Glucose 104 mg/dL (65-100) H 06/08/19 03:46 Calcium 8.4 mg/dL (8.4-10.2) 06/08/19 03:46 0.50 mg/dL (0.1-1.2) 06/07/19 15:13 < 0.2 mg/dL (0-0.2) 06/07/19 15:13 0.3 mg/dL 06/07/19 15:13 AST 19 units/L (5-40) 06/07/19 15:13 ALT 11 units/L (7-56) 06/07/19 15:13 89 units/L (35-129) 06/07/19 15:13 6.8 g/dL (6.3-8.2) 06/07/19 15:13 3.9 g/dL (3.9-5) 06/07/19 15:13 1.3 % 06/07/19 15:13 Plasma/Serum Alcohol < 0.01 % (0-0.07) 06/07/19 21:11 Active Medications - Current Medications Current Medications: Generic Name Dose Route Start Last Admin Trade Name Freq PRN Reason Stop Dose Admin Acetaminophen 650 mg 06/07/19 15:37 Tylenol PO Q4H PRN Pain MILD(1-3)/Fever >100.5/[place] Albuterol 2.5 mg 06/07/19 15:37 Proventil IH Q4HRT PRN Shortness Of Breath Bupivacaine HCl 30 ml 06/09/19 13:00 [place]aine 0.5% INFILTRATI 06/09/19 23:59 PREOP NR Celecoxib 200 mg 06/09/19 13:00 06/09/19 12:49 Celebrex PO 06/09/19 23:59 200 mg PREOP NR Administration Dexamethasone 4 mg 06/09/19 13:00 Decadron IV 06/09/19 23:59 PREOP NR Enoxaparin Sodium 40 mg 06/07/19 21:00 06/08/19 22:25 Lovenox SUB-Q 40 mg QDAY@2200 ROMAN Administration Famotidine 20 mg 06/07/19 22:00 06/08/19 22:25 Pepcid PO 20 mg BID ROMAN Administration Folic Acid 1 mg 06/08/19 10:00 06/08/19 10:09 Folvite PO Not Given QDAY [facility] Gabapentin 600 mg 06/09/19 13:00 06/09/19 12:49 Neurontin PO 600 mg PREOP ROMAN Administration Lactated Ringer's 1,000 mls @ 100 mls/hr 06/09/19 13:00 06/09/19 12:50 Lactated Ringers IV 100 mls/hr DIRECT ROMAN Administration Vancomycin HCl 750 mg/ Sodium 265 mls @ 166.667 mls/hr 06/09/19 13:00 Chloride IV 06/09/19 23:59 PREOP NR Levothyroxine Sodium 100 mcg 06/08/19 10:00 06/08/19 10:08 Synthroid PO Not Given DAILY [facility] Lorazepam 2 mg 06/07/19 20:08 06/08/19 15:26 Ativan IV 2 mg Q1HR PRN Administration CIWA-Ar 8-15 Midazolam HCl 2 mg 06/09/19 13:00 06/09/19 13:00 Versed IV 06/09/19 23:59 2 mg PREOP NR Administration Morphine Sulfate 2 mg 06/07/19 15:37 06/08/19 13:09 Morphine IV 2 mg Q4H PRN Administration Pain, Moderate (4-6) Multivitamins 1 each 06/08/19 10:00 06/08/19 10:08 Theragran Tab PO Not Given QDAY [facility] Nicotine 14 mg 06/08/19 14:00 06/08/19 13:12 Habitrol TD 14 mg QDAY [facility] Administration Ondansetron HCl 4 mg 06/07/19 15:37 06/08/19 02:52 Zofran IV 4 mg Q8H PRN Administration Nausea And Vomiting Oxycodone/Acetaminophen 1 tab 06/07/19 15:37 06/08/19 21:14 Percocet 5/325 PO 1 tab Q6H PRN Administration Pain, Moderate (4-6) Sodium Chloride 10 ml 06/07/19 22:00 06/08/19 22:25 Sodium Chloride Flush Syringe 10 Ml IV 10 ml BID ROMAN Administration Sodium Chloride 10 ml 06/07/19 15:37 Sodium Chloride Flush Syringe 10 Ml IV PRN PRN LINE FLUSH Thiamine HCl 100 mg 06/08/19 10:00 06/08/19 10:09 Vitamin B-1 PO Not Given QDAY [facility] Nutrition/Malnutrition Assess - Dietary Evaluation Nutrition/Malnutrition Findings: Nutrition Notes Start: 06/08/19 15:58 Freq: Status: Active Protocol: Document 06/08/19 15:58 RM (Rec: 06/08/19 16:07 RM [id number]) Nutrition Notes Need for Assessment generated from: Low BMI Initial or Follow up Assessment Other Pertinent Diagnosis ETOH dependence, Bipolar disorder, Humerus distal fracture Current Diet Regular Labs/Tests Reviewed Pertinent Medications Zofran Height 5 ft 6 in Weight 50.5 kg Usual Body Weight 50 kg [place] Body Weight (kg) 59.09 BMI 17.9 Subjective/Other Information Screened for low BMI. Pt stated that [employer] her appetite was poor and that she ate 1 meal daily. Stated that her appetite is poor now. However noted lunch at bedside w/most eaten. Pt declined ONS d/t disliking them but accepted offer of double portions. Stated UBW has been 110 lbs for a while. Noted temporal wasting. Percent of energy/protein needs met: 91%/100% Minimum of two criteria Yes Energy Intake (non-severe) <75% Estimated Energy Requirement >7 days Muscle Mass Moderate Depletion (severe) #1 Nutrition Diagnosis Malnutrition Etiology ETOH dependence As Evidenced by Signs and Symptoms pt statement that [employer] she ate 1 meal daily, temporal wasting , BMI 18 Is patient on ventilator? No Is Patient Ambulatory and/or Out of Bed Yes REE-([place]-St. Jeor-ambulatory/OOB) [ 1399.775 [id number]] Kcal/Kg value to use for calculation 38 Approximate Energy Requirements Using 1919 kcal/Kg Calculation Used for Recommendations Kcal/kg Additional Notes Protein Needs: 61-76g (1.2-1. 5g/kg) Fluid Needs: 1 ml/kcal Nutrition Intervention Change Diet Order: Regular w/double portions Goal #1 Continue to meet at least 75% of calorie and protein needs via PO intakes Goal #2 Wt gain/maintenance Anticipated Discharge Needs: Regular diet Follow-Up By: 06/15/19 Additional Comments Follow for PO intakes
[2019-06-09] MEDS ORDERED: TORADOL ONE (17:04)
[2019-06-09] MEDS ORDERED: ROBINUL ONE (17:04)
[2019-06-09] MEDS ORDERED: ZOFRAN ONE (17:25)
[2019-06-09] MEDS ORDERED: LACTATED RINGERS 1,000 ML ONE (17:25)
[2019-06-09] MEDS ORDERED: DECADRON ONE (17:25)
--- NOTE | 2019-06-09 19:11 | Post Anesthesia Evaluation ---
- Post Anesthesia Evaluation Patient Participated: Yes Airway Patent: Yes Stable Respiratory Function: Yes Nausea/Vomiting: No Temp > 96.8F: Yes Pain Manageable: Yes Adequeate Hydration: Yes Anesthesia Complications: No Block Receding Appropriately: Not Applicable (block for postop analgesia)
--- NOTE | 2019-06-09 19:25 | Procedure Note ---
Date of procedure: 06/09/19 Pre-op diagnosis: comminuted displaced right distal humerus fracture with intercondylar exten Post-op diagnosis: same Procedure: Open reduction internal fixation right distal humerus The patient was brought to the OR after being given a scalene nerve block for preop and postop pain management. She was placed in the OR table in a supine position following induction intubation by anesthesia the patient's right upper extremity was prepped and draped in the usual sterile manner a timeout procedure was done to identify the patient and the correct operative site. The arm was exsanguinated followed by instillation of the pneumatic tourniquet to 250 mmHg. A posterior incision was made beginning at the distal third of the humerus visit then taken down towards the olecranon process curve slightly medially then all long onto the proximal ulnar. The ulnar nerve was identified and isolated followed by protection using Vesseloops. Next the proximal ulnar was osteotomized using a oscillating saw the triceps tendon was incised with medially and laterally which brought us onto the distal humerus and the articular surface. Examination revealed patient to have multiple fractures involving the trochealar surface after manipulation of the fracture fragments these fragments were held in place via K wires temporarily. Two 4.0 cannulated screws were used to stabilize the articular fragments next a medial lock plate was applied to the distal humerus and secured by way of multiple locked and unlock screws are various lengths C-arm fluoroscopy was used at this point and showed good reduction of the fracture fragments as well as placement of the darrin dware this was followed by placement of a second plate along the lateral border of the distal humerus plate was secured with screws of various lengths. Next attention was sprayed to the olecranon osteotomy, the proximal fragment was reduced next 2 smooth K wires were inserted to stabilize the fracture. Using a locked olecranon plate the osteotomy was stabilized with screws of appropriate length. A C-arm image was used at this point and showed good reduction at the ulnar osteotomy site as well as anatomic reduction of the distal humerus fracture site. Next the wound was copiously irrigated and the soft tissues were closed in a standard routine fashion. Dressings were applied as well as a well- padded posterior mold. She tolerated the procedure there were no complications. She was extubated and was taken to the postanesthesia recovery Anesthesia: GIAN Surgeon: LAUREEN GOMEZ Production Engineer Track: IVAN MARTINEZ Estimated blood loss: other (300 mL) Pathology: none Condition: stable Disposition: PACU
[2019-06-09] MEDS ORDERED: SODIUM CHLORIDE FLUSH SYRINGE 10 ML IV NR (20:00)
--- NOTE | 2019-06-09 21:07 | XRay Report ---
Right elbow 2 views INDICATION: Right elbow pain IMPRESSION: Intraoperative images following ORIF demonstrates no unexpected abnormality Total fluoroscopy time measures 0.2 minutes.. Signer Name: Jah Easton MD Signed: 06/09/2019 9:03 PM Workstation Name: [id number]
[2019-06-09] MEDS: LOVENOX SUB-Q SCH (21:32)
[2019-06-09] MEDS: SODIUM CHLORIDE FLUSH SYRINGE 10 ML IV SCH (23:55)
[2019-06-10] MEDS: LACTATED RINGERS 1,000 ML IV SCH ×3 (01:59→21:43)
[2019-06-10] MEDS: SODIUM CHLORIDE FLUSH SYRINGE 10 ML IV SCH ×3 (02:00→22:51)
[2019-06-10 05:31] LABS: Hemoglobin 10.9 gm/dl (10.1-14.3)
[2019-06-10] MEDS ORDERED: NACL 0.9% 1000 ML 1,000 ML IV ONE (09:00)
[2019-06-10] MEDS: PEPCID PO SCH ×2 (09:12→22:50)
[2019-06-10] MEDS: FOLVITE PO SCH (09:12)
[2019-06-10] MEDS: THERAGRAN Tab PO SCH (09:12)
[2019-06-10] MEDS: VITAMIN B-1 PO SCH (09:12)
[2019-06-10] MEDS: SYNTHROID PO SCH (09:13)
[2019-06-10] MEDS: HABITROL TD SCH ×2 (10:00→20:34)
--- NOTE | 2019-06-10 13:40 | Progress Note ---
Assessment and Plan s/p ORIF right distal humerus doing well continue observation and rehab Subjective Date of service: 06/10/19 Interval history: no c/o's noted, resting comfortably in bed... Objective Vital signs: Vital Signs - 12hr 06/10/19 06/10/19 06:02 12:04 Temperature 97.7 F 97.9 F Pulse Rate 69 86 Respiratory 17 18 Rate Blood Pressure 92/34 110/47 O2 Sat by Pulse 99 99 Oximetry Incision: clean and dry Weight bearing status: as tolerated - Labs CBC & BMP: 06/10/19 03:49 06/08/19 03:46
--- NOTE | 2019-06-10 14:22 | Progress Note ---
Assessment and Plan Assessment and plan: 63yr old female patient was admitted through emergency room with history of fall and fractured her right humerus comminuted and displaced distal humeral fracture with significant medial and posterior displacement. Admitted to the hospital symptomatically managed, contact orthopedic surgeon, possible surgery tomorrow Patient feels slightly better complains of severe pain, very upset, complains of severe depression and anxiety --Hypotension-Tranisent Improved with IV fluids Recheck H/H considering blood loss documented during surgery --S/P Mechanical Fall Fall precautions, physical therapy occupational therapy --Humerus/distal comminuted displaced facture s/p ORIF right distal humerus PAIN CONTROL --Severe malnutrition Encourage increased oral intake, dietary supplementation, nutrition consult --EtOH dependence/withdrawal symptoms CIWA protocol, thiamine, folic acid, multivitamin daily. IV fluids if needed --Nicotine dependence Smoking cessation counseling, Nicotine patch as needed --Elevated d-dimers : CTA chest negative for PE, chr. pancreatitis, pulmonary nodule [place] venous Doppler negative for DVT -- Lung nodule Repeat CT chest in 6-12 months, F/U pcp/pulmonary at [place] for further evaluation outpatient --History of Bipolar disorder Continue current therapy, psych evaluation --Depression; antidepressant medications, psych evaluation no suicidal thoughts or ideation, --DVT prophylaxis SCD to BLE while in bed, prophylactic lovenox Monitor closely and adjust the management as needed Plan of care reviewed with the patient and her nurse History Interval history: Patient seen and examined, for or this am. sling in place right arm, complained of pain this am but better, learning how to use right hand Hospitalist Physical - Physical exam Narrative exam: General appearance: Present: mild distress, cachectic, - EENT Eyes: Present: PERRL, EOM intact - Neck Neck: Present: supple, normal ROM - Respiratory Respiratory effort: normal Respiratory: bilateral: diminished, negative: rales, rhonchi, wheezing - Cardiovascular Rhythm: regular Heart Sounds: Present: S1 & S2 - Extremities Extremities: no ischemia, No edema, abnormal right upper ext dressing and sling in place - Abdominal General gastrointestinal: soft, non-tender, non-distended, normal bowel sounds - Integumentary Integumentary: Present: clear, warm - Psychiatric Psychiatric: appropriate mood/affect, cooperative - Neurologic Neurologic: CNII-XII intact, moves all extremities - Constitutional Vitals: Temp Pulse Resp BP Pulse Ox 97.9 F 86 18 110/47 99 06/10/19 12:04 06/10/19 12:04 06/10/19 12:04 06/10/19 12:04 06/10/19 12:04 General appearance: Present: mild distress, cachectic, disheveled Results - Labs CBC & Chem 7: 06/11/19 03:38 06/11/19 03:38 Labs: Laboratory Last Values WBC 5.5 K/mm3 (4.5-11.0) 06/08/19 03:46 RBC 3.84 M/mm3 (3.65-5.03) 06/08/19 03:46 Hgb 10.9 gm/dl (10.1-14.3) 06/10/19 03:49 Hct 32.0 % (30.3-42.9) 06/10/19 03:49 MCV 88 fl (79-97) 06/08/19 03:46 MCH 30 pg (28-32) 06/08/19 03:46 MCHC 34 % (30-34) 06/08/19 03:46 RDW 13.2 % (13.2-15.2) 06/08/19 03:46 Plt Count 255 K/mm3 (140-440) 06/08/19 03:46 Lymph % (Auto) 30.5 % (13.4-35.0) 06/08/19 03:46 [place] % (Auto) 9.4 % (0.0-7.3) H 06/08/19 03:46 Eos % (Auto) 3.1 % (0.0-4.3) 06/08/19 03:46 Baso % (Auto) 1.1 % (0.0-1.8) 06/08/19 03:46 Lymph # 1.7 K/mm3 (1.2-5.4) 06/08/19 03:46 [place] # 0.5 K/mm3 (0.0-0.8) 06/08/19 03:46 Eos # 0.2 K/mm3 (0.0-0.4) 06/08/19 03:46 Baso # 0.1 K/mm3 (0.0-0.1) 06/08/19 03:46 Seg Neutrophils % 55.9 % (40.0-70.0) 06/08/19 03:46 Seg Neutrophils # 3.0 K/mm3 (1.8-7.7) 06/08/19 03:46 1182.37 ng/mlDDU (0-234) H 06/07/19 14:10 Sodium 139 mmol/L (137-145) 06/08/19 03:46 Potassium 3.6 mmol/L (3.6-5.0) 06/08/19 03:46 Chloride 109.1 mmol/L (98-107) H 06/08/19 03:46 Carbon Dioxide 22 mmol/L (22-30) 06/08/19 03:46 12 mmol/L 06/08/19 03:46 BUN 18 mg/dL (7-17) H 06/08/19 03:46 0.6 mg/dL (0.7-1.2) L 06/08/19 03:46 Estimated GFR > 60 ml/min 06/08/19 03:46 30 % 06/08/19 03:46 Glucose 104 mg/dL (65-100) H 06/08/19 03:46 Calcium 8.4 mg/dL (8.4-10.2) 06/08/19 03:46 0.50 mg/dL (0.1-1.2) 06/07/19 15:13 < 0.2 mg/dL (0-0.2) 06/07/19 15:13 0.3 mg/dL 06/07/19 15:13 AST 19 units/L (5-40) 06/07/19 15:13 ALT 11 units/L (7-56) 06/07/19 15:13 89 units/L (35-129) 06/07/19 15:13 6.8 g/dL (6.3-8.2) 06/07/19 15:13 3.9 g/dL (3.9-5) 06/07/19 15:13 1.3 % 06/07/19 15:13 Plasma/Serum Alcohol < 0.01 % (0-0.07) 06/07/19 21:11 Active Medications - Current Medications Current Medications: Generic Name Dose Route Start Last Admin Trade Name Freq PRN Reason Stop Dose Admin Acetaminophen 650 mg 06/07/19 15:37 Tylenol PO Q4H PRN Pain MILD(1-3)/Fever >100.5/[place]ANO Albuterol 2.5 mg 06/07/19 15:37 Proventil IH Q4HRT PRN Shortness Of Breath Enoxaparin Sodium 40 mg 06/07/19 21:00 06/09/19 21:32 Lovenox SUB-Q 40 mg QDAY@2200 ROMAN Administration Famotidine 20 mg 06/07/19 22:00 06/10/19 09:12 Pepcid PO 20 mg BID ROMAN Administration Folic Acid 1 mg 06/08/19 10:00 06/10/19 09:12 Folvite PO 1 mg QDAY ROMAN Administration Gabapentin 600 mg 06/09/19 13:00 06/09/19 12:49 Neurontin PO 600 mg PREOP ROMAN Administration Lactated Ringer's 1,000 mls @ 100 mls/hr 06/09/19 13:00 06/10/19 01:59 Lactated Ringers IV 100 mls/hr DIRECT ROMAN Administration Levothyroxine Sodium 100 mcg 06/08/19 10:00 06/10/19 09:13 Synthroid PO 100 mcg DAILY ROMAN Administration Lorazepam 2 mg 06/07/19 20:08 06/08/19 15:26 Ativan IV 2 mg Q1HR PRN Administration CIWA-Ar 8-15 Morphine Sulfate 2 mg 06/07/19 15:37 06/08/19 13:09 Morphine IV 2 mg Q4H PRN Administration Pain, Moderate (4-6) Multivitamins 1 each 06/08/19 10:00 06/10/19 09:12 Theragran Tab PO 1 each QDAY ROMAN Administration Nicotine 14 mg 06/08/19 14:00 06/08/19 13:12 Habitrol TD 14 mg QDAY ROMAN Administration Ondansetron HCl 4 mg 06/07/19 15:37 06/08/19 02:52 Zofran IV 4 mg Q8H PRN Administration Nausea And Vomiting Oxycodone/Acetaminophen 1 tab 06/07/19 15:37 06/08/19 21:14 Percocet 5/325 PO 1 tab Q6H PRN Administration Pain, Moderate (4-6) Sodium Chloride 10 ml 06/07/19 22:00 06/10/19 02:00 Sodium Chloride Flush Syringe 10 Ml IV 10 ml BID ROMAN Administration Sodium Chloride 10 ml 06/07/19 15:37 Sodium Chloride Flush Syringe 10 Ml IV PRN PRN LINE FLUSH Sodium Chloride 10 ml 06/09/19 20:00 Sodium Chloride Flush Syringe 10 Ml IV 06/10/19 19:59 PRN NR Thiamine HCl 100 mg 06/08/19 10:00 06/10/19 09:12 Vitamin B-1 PO 100 mg QDAY ROMAN Administration Nutrition/Malnutrition Assess - Dietary Evaluation Nutrition/Malnutrition Findings: Nutrition Notes Start: 06/08/19 15:58 Freq: Status: Active Protocol: Document 06/08/19 15:58 RM (Rec: 06/08/19 16:07 RM [id number]) Nutrition Notes Need for Assessment generated from: Low BMI Initial or Follow up Assessment Other Pertinent Diagnosis ETOH dependence, Bipolar disorder, Humerus distal fracture Current Diet Regular Labs/Tests Reviewed Pertinent Medications Zofran Height 5 ft 6 in Weight 50.5 kg Usual Body Weight 50 kg [place] Body Weight (kg) 59.09 BMI 17.9 Subjective/Other Information Screened for low BMI. 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 Stated that her appetite is poor now. However noted lunch at bedside w/most eaten. Pt declined ONS d/t disliking them but accepted offer of double portions. Stated UBW has been 110 lbs for a while. Noted temporal wasting. 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 No Is Patient Ambulatory and/or Out of Bed Yes REE-([place]-[facility] Je[facility]-ambulatory/OOB) [ 1399.775 NUTR.MSJOOB] Kcal/Kg value to use for calculation 38 Approximate Energy Requirements Using 1919 kcal/Kg Calculation Used for Recommendations Kcal/kg Additional Notes Protein Needs: 61-76g (1.2-1. 5g/kg) Fluid Needs: 1 ml/kcal Nutrition Intervention Change Diet Order: Regular w/double portions Goal #1 Continue to meet at least 75% of calorie and protein needs via PO intakes Goal #2 Wt gain/maintenance Anticipated Discharge Needs: Regular diet Follow-Up By: 06/15/19 Additional Comments Follow for PO intakes
[2019-06-10 14:33] LABS: Basophils # (Auto) 0.1 K/mm3 (0.0-0.1); Basophils % (Auto) 0.7 % (0.0-1.8); Eosinophils % (Auto) 0.4 % (0.0-4.3); Hematocrit 30.2 % (30.3-42.9); Hemoglobin 10.2 gm/dl (10.1-14.3); Lymphocytes # (Auto) 1.7 K/mm3 (1.2-5.4); Lymphocytes % (Auto) 18.7 % (13.4-35.0); Mean Corpuscular HGB Conc 34 % (30-34); Mean Corpuscular Volume 89 fl (79-97); Monocytes # (Auto) 0.9 K/mm3 (0.0-0.8); Monocytes % (Auto) 9.7 % (0.0-7.3); Platelet Count 283 K/mm3 (140-440); Red Cell Distribution Width 13.5 % (13.2-15.2)
[2019-06-10] MEDS: LOVENOX SUB-Q SCH (21:33)
[2019-06-10] MEDS: PERCOCET 5/325 PO PRN (21:34)
[2019-06-11 04:36] LABS: Hematocrit 28.1 % (30.3-42.9); Hemoglobin 9.5 gm/dl (10.1-14.3); Mean Corpuscular HGB Conc 34 % (30-34); Mean Corpuscular Volume 89 fl (79-97); Platelet Count 268 K/mm3 (140-440); Red Blood Count 3.15 M/mm3 (3.65-5.03); Red Cell Distribution Width 13.6 % (13.2-15.2)
[2019-06-11 04:48] LABS: BUN/Creatinine Ratio 14; Blood Urea Nitrogen 7 mg/dL (7-17); Calcium 8.6 mg/dL (8.4-10.2); Hemolysis Index 7
[2019-06-11] MEDS: LACTATED RINGERS 1,000 ML IV SCH (08:36)
[2019-06-11] MEDS: FOLVITE PO SCH (08:37)
[2019-06-11] MEDS: PEPCID PO SCH (08:37)
[2019-06-11] MEDS: VITAMIN B-1 PO SCH (08:38)
[2019-06-11] MEDS: SYNTHROID PO SCH (08:38)
[2019-06-11] MEDS: THERAGRAN Tab PO SCH (08:38)
[2019-06-11] MEDS ORDERED: K-DUR PO ONE (11:37)
--- NOTE | 2019-06-11 11:38 | Progress Note ---
Assessment and Plan Assessment and plan: 63yr old female patient was admitted through emergency room with history of fall and fractured her right humerus comminuted and displaced distal humeral fracture with significant medial and posterior displacement. Admitted to the hospital symptomatically managed, contact orthopedic surgeon, possible surgery tomorrow Patient feels slightly better complains of severe pain, very upset, complains of severe depression and anxiety --Hypotension-Tranisent Improved with IV fluids H/H stable --S/P Mechanical Fall Fall precautions, physical therapy occupational therapy --Humerus/distal comminuted displaced facture s/p ORIF right distal humerus POD 2 PAIN CONTROL --Severe malnutrition Encourage increased oral intake, dietary supplementation, nutrition consult --EtOH dependence/withdrawal symptoms CIWA protocol, thiamine, folic acid, multivitamin daily. IV fluids if needed --Nicotine dependence Smoking cessation counseling, Nicotine patch as needed --Elevated d-dimers : CTA chest negative for PE, chr. pancreatitis, pulmonary nodule [place] venous Doppler negative for DVT -- Lung nodule Repeat CT chest in 6-12 months, F/U pcp/pulmonary at [place] for further evaluation outpatient --History of Bipolar disorder Continue current therapy, psych evaluation --Depression; antidepressant medications, psych evaluation no suicidal thoughts or ideation, --DVT prophylaxis SCD to BLE while in bed, prophylactic lovenox Monitor closely and adjust the management as needed Plan of care reviewed with the patient and her nurse Discharge when ok with surgery team awaiting OT eval and treat for rehab recommendation. Hospitalist Physical - Constitutional Vitals: Temp Pulse Resp BP Pulse Ox 98.0 F 75 18 107/42 97 06/11/19 06:59 06/11/19 06:59 06/11/19 06:59 06/11/19 06:59 06/11/19 06:59 General appearance: Present: mild distress, cachectic, disheveled Results - Labs CBC & Chem 7: 06/11/19 03:38 06/11/19 03:38 Labs: Laboratory Last Values WBC 8.1 K/mm3 (4.5-11.0) 06/11/19 03:38 RBC 3.15 M/mm3 (3.65-5.03) L 06/11/19 03:38 Hgb 9.5 gm/dl (10.1-14.3) L 06/11/19 03:38 Hct 28.1 % (30.3-42.9) L 06/11/19 03:38 MCV 89 fl (79-97) 06/11/19 03:38 MCH 30 pg (28-32) 06/11/19 03:38 MCHC 34 % (30-34) 06/11/19 03:38 RDW 13.6 % (13.2-15.2) 06/11/19 03:38 Plt Count 268 K/mm3 (140-440) 06/11/19 03:38 Lymph % (Auto) 18.7 % (13.4-35.0) 06/10/19 13:06 [place] % (Auto) 9.7 % (0.0-7.3) H 06/10/19 13:06 Eos % (Auto) 0.4 % (0.0-4.3) 06/10/19 13:06 Baso % (Auto) 0.7 % (0.0-1.8) 06/10/19 13:06 Lymph # 1.7 K/mm3 (1.2-5.4) 06/10/19 13:06 [place] # 0.9 K/mm3 (0.0-0.8) H 06/10/19 13:06 Eos # 0.0 K/mm3 (0.0-0.4) 06/10/19 13:06 Baso # 0.1 K/mm3 (0.0-0.1) 06/10/19 13:06 Seg Neutrophils % 70.5 % (40.0-70.0) H 06/10/19 13:06 Seg Neutrophils # 6.4 K/mm3 (1.8-7.7) 06/10/19 13:06 1182.37 ng/mlDDU (0-234) H 06/07/19 14:10 Sodium 143 mmol/L (137-145) 06/11/19 03:38 Potassium 3.3 mmol/L (3.6-5.0) L 06/11/19 03:38 Chloride 108.2 mmol/L (98-107) H 06/11/19 03:38 Carbon Dioxide 26 mmol/L (22-30) 06/11/19 03:38 12 mmol/L 06/11/19 03:38 BUN 7 mg/dL (7-17) 06/11/19 03:38 0.5 mg/dL (0.7-1.2) L 06/11/19 03:38 Estimated GFR > 60 ml/min 06/11/19 03:38 14 % 06/11/19 03:38 Glucose 98 mg/dL (65-100) 06/11/19 03:38 Calcium 8.6 mg/dL (8.4-10.2) 06/11/19 03:38 0.50 mg/dL (0.1-1.2) 06/07/19 15:13 < 0.2 mg/dL (0-0.2) 06/07/19 15:13 0.3 mg/dL 06/07/19 15:13 AST 19 units/L (5-40) 06/07/19 15:13 ALT 11 units/L (7-56) 06/07/19 15:13 89 units/L (35-129) 06/07/19 15:13 6.8 g/dL (6.3-8.2) 06/07/19 15:13 3.9 g/dL (3.9-5) 06/07/19 15:13 1.3 % 06/07/19 15:13 Plasma/Serum Alcohol < 0.01 % (0-0.07) 06/07/19 21:11 Active Medications - Current Medications Current Medications: Generic Name Dose Route Start Last Admin Trade Name Freq PRN Reason Stop Dose Admin Acetaminophen 650 mg 06/07/19 15:37 Tylenol PO Q4H PRN Pain MILD(1-3)/Fever >100.5/[place]AN[place] Albuterol 2.5 mg 06/07/19 15:37 Proventil IH Q4HRT PRN Shortness Of Breath Enoxaparin Sodium 40 mg 06/07/19 21:00 06/10/19 21:33 Lovenox SUB-Q 40 mg QDAY@2200 ROMAN Administration Famotidine 20 mg 06/07/19 22:00 06/11/19 08:37 Pepcid PO 20 mg BID ROMAN Administration Folic Acid 1 mg 06/08/19 10:00 06/11/19 08:37 Folvite PO 1 mg QDAY ROMAN Administration Gabapentin 600 mg 06/09/19 13:00 06/09/19 12:49 Neurontin PO 600 mg PREOP ROMAN Administration Lactated Ringer's 1,000 mls @ 100 mls/hr 06/09/19 13:00 06/11/19 08:36 Lactated Ringers IV 100 mls/hr DIRECT ROMAN Administration Levothyroxine Sodium 100 mcg 06/08/19 10:00 06/11/19 08:38 Synthroid PO 100 mcg DAILY ROMAN Administration Lorazepam 2 mg 06/07/19 20:08 06/08/19 15:26 Ativan IV 2 mg Q1HR PRN Administration CIWA-Ar 8-15 Morphine Sulfate 2 mg 06/07/19 15:37 06/08/19 13:09 Morphine IV 2 mg Q4H PRN Administration Pain, Moderate (4-6) Multivitamins 1 each 06/08/19 10:00 06/11/19 08:38 Theragran Tab PO 1 each QDAY ROMAN Administration Nicotine 14 mg 06/08/19 14:00 06/10/19 20:34 Habitrol TD Not Given QDAY ROMAN Ondansetron HCl 4 mg 06/07/19 15:37 06/08/19 02:52 Zofran IV 4 mg Q8H PRN Administration Nausea And Vomiting Oxycodone/Acetaminophen 1 tab 06/07/19 15:37 06/10/19 21:34 Percocet 5/325 PO 1 tab Q6H PRN Administration Pain, Moderate (4-6) Sodium Chloride 10 ml 06/07/19 22:00 06/10/19 22:51 Sodium Chloride Flush Syringe 10 Ml IV 10 ml BID ROMAN Administration Sodium Chloride 10 ml 06/07/19 15:37 Sodium Chloride Flush Syringe 10 Ml IV PRN PRN LINE FLUSH Thiamine HCl 100 mg 06/08/19 10:00 06/11/19 08:38 Vitamin B-1 PO 100 mg QDAY ROMAN Administration Nutrition/Malnutrition Assess - Dietary Evaluation Nutrition/Malnutrition Findings: Nutrition Notes Start: 06/08/19 15:58 Freq: Status: Active Protocol: Document 06/08/19 15:58 RM (Rec: 06/08/19 16:07 RM [id number]) Nutrition Notes Need for Assessment generated from: Low BMI Initial or Follow up Assessment Other Pertinent Diagnosis ETOH dependence, Bipolar disorder, Humerus distal fracture Current Diet Regular Labs/Tests Reviewed Pertinent Medications Zofran Height 5 ft 6 in Weight 50.5 kg Usual Body Weight 50 kg [place] Body Weight (kg) 59.09 BMI 17.9 Subjective/Other Information Screened for low BMI. 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 Stated that her appetite is poor now. However noted lunch at bedside w/most eaten. Pt declined ONS d/t disliking them but accepted offer of double portions. Stated UBW has been 110 lbs for a while. Noted temporal wasting. 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 No Is Patient Ambulatory and/or Out of Bed Yes REE-([place]-ambulatory/OOB) [ 1399.775 NUTR.MSJOOB] Kcal/Kg value to use for calculation 38 Approximate Energy Requirements Using 1919 kcal/Kg Calculation Used for Recommendations Kcal/kg Additional Notes Protein Needs: 61-76g (1.2-1. 5g/kg) Fluid Needs: 1 ml/kcal Nutrition Intervention Change Diet Order: Regular w/double portions Goal #1 Continue to meet at least 75% of calorie and protein needs via PO intakes Goal #2 Wt gain/maintenance Anticipated Discharge Needs: Regular diet Follow-Up By: 06/15/19 Additional Comments Follow for PO intakes
--- NOTE | 2019-06-11 12:06 | Discharge Summary ---
Providers - Providers Date of Admission: 06/07/19 15:37 Attending physician: CHARLOTTE ALMAZAN MD 06/07/19 23:00 Consult to Physician [CONS] Routine Comment: Dr. Bland spoke with Dr. Matos @ [id number] Consulting Provider: LAUREEN MATOS Physician Instructions: Reason For Exam: fractured humerus 06/08/19 11:30 Consult to Physician [CONS] Routine Comment: Consulting Provider: BETTYE KNOWLES Physician Instructions: Reason For Exam: Depression 06/08/19 18:55 Consult to Dietitian/Nutrition [CONS] Routine Physician Instructions: Reason For Exam: Reason for Consult: Malnutrition 06/11/19 11:36 Occupational Therapy Evaluate and Treat [CONS] Routine Comment: Reason For Exam: upper ext surgery Physical Therapy Evaluation and Treat [CONS] Routine Comment: Reason For Exam: upper ext surgery [facility] Reason for admission: humurus fracture Condition: Stable Hospital course: 63yr old female patient was admitted through emergency room with history of fall and fractured her right humerus comminuted and displaced distal humeral fracture with significant medial and posterior displacement. Admitted to the hospital symptomatically managed, contact orthopedic surgeon, possible surgery tomorrow Patient feels slightly better complains of severe pain, very upset, complains of severe depression and anxiety Discussed Concern about discoloration and heaviness of right hand with surgeon, they recommended patient can be discharged, rest arm, elevate when resting, outpatient home health findings as reviewed by them is expected due to the significant injury in the arm and nature of surgery. Patient will follow outpatient Extensive smoking cessation counselling given to the patient for about 15 mins and she verablized understaing --Hypotension-Tranisent --S/P Mechanical Fall --Humerus/distal comminuted displaced facture s/p ORIF right distal humerus POD 2 --Severe malnutrition --EtOH dependence/withdrawal symptoms --Nicotine dependence --Elevated d-dimers : CTA chest negative for PE, chr. pancreatitis, pulmonary nodule [place] venous Doppler negative for DVT -- Lung nodule Repeat CT chest in 6-12 months, F/U pcp/pulmonary at [place] for further evaluation outpatient --History of Bipolar disorder Continue current therapy, psych evaluation --Depression; antidepressant medications, psych evaluation no suicidal thoughts or ideation, Disposition: [id number]-06 HOME UNDER HOME [facility] Time spent for discharge: 35 mins Core Measure Documentation - Palliative Care Palliative Care/ Comfort Measures: Not Applicable - Core Measures Any of the following diagnoses?: none Exam - Physical Exam Narrative exam: General appearance: Present: mild distress, cachectic, - EENT Eyes: Present: PERRL, EOM intact - Neck Neck: Present: supple, normal ROM - Respiratory Respiratory effort: normal Respiratory: bilateral: diminished, negative: rales, rhonchi, wheezing - Cardiovascular Rhythm: regular Heart Sounds: Present: S1 & S2 - Extremities Extremities: no ischemia, No edema, abnormal right upper ext dressing and sling in place - Abdominal General gastrointestinal: soft, non-tender, non-distended, normal bowel sounds - Integumentary Integumentary: Present: clear, warm - Psychiatric Psychiatric: appropriate mood/affect, cooperative - Neurologic Neurologic: CNII-XII intact, moves all extremities - Constitutional Vitals: Temp Pulse Resp BP Pulse Ox 98.0 F 75 18 107/42 97 06/11/19 06:59 06/11/19 06:59 06/11/19 06:59 06/11/19 06:59 06/11/19 06:59 Plan Activity: advance as tolerated, fall precautions Diet: low fat Wound: per your surgeon's advice (rest right hand, keep elevated ) Special Instructions: record daily BP diary, other Follow up with: NATIVIDAD SOARES MD [Primary Care Provider] - 7 Days LAUREEN MATOS MD [Staff Physician] - 7 Days
[2019-06-11 12:51] VITALS: BP 110/47
== END 2019-06-11 14:15 | disposition home health service (06) | DRG 492 ==
LOC: ED 13:54 → 3B-SURG 15:37
PROVIDERS: ADMIT Internal Medicine; ATTEND Internal Medicine
PROC: 0PSF04Z Reposition Right Humeral Shaft with Internal Fixation Device, Open Approach (ICD-10-PCS; principal; 2019-06-09)
PROC: 0PSK04Z Reposition Right Ulna with Internal Fixation Device, Open Approach (ICD-10-PCS; 2019-06-09)
DX: S42.491A Other displaced fracture of lower end of right humerus, initial encounter for closed fracture (principal); E43 Unspecified severe protein-calorie malnutrition; F17.213 Nicotine dependence, cigarettes, with withdrawal; Z68.1 Body mass index [BMI] 19.9 or less, adult; F41.9 Anxiety disorder, unspecified; E03.9 Hypothyroidism, unspecified; R91.8 Other nonspecific abnormal finding of lung field; W18.39XA Other fall on same level, initial encounter; F31.9 Bipolar disorder, unspecified; F10.20 Alcohol dependence, uncomplicated; Y90.9 Presence of alcohol in blood, level not specified; Z88.0 Allergy status to penicillin; Z88.2 Allergy status to sulfonamides; Z71.6 Tobacco abuse counseling; Y93.89 Activity, other specified; Y92.098 Other place in other non-institutional residence as the place of occurrence of the external cause; Y99.8 Other external cause status
CPT/HCPCS: 36415; 71275; 80048; 80076; 80320; 85014; 85018; 85025; 85027; 85379; 94760; 96374; 96375; 99284; G0378; C1713; G0480; J1100; J1650; J1885; J1953; J2001; J2060; J2250; J2270; J2405; J2704; J3010; J3370; J3411; J7030; J7050; J7120; L1830; Q9967

== ENCOUNTER 2019-06-14 13:01 | Inpatient (IN) | payer MEDICARE ==
--- NOTE | 2019-06-14 15:00 | Emergency Department Report ---
HPI - General Chief Complaint: Fall Time Seen by Provider: 06/14/19 14:21 - HPI HPI: 63-year-old female presents to the emergency department with complaint of some pain and weakness to the right leg. The patient is a very poor historian. Her right arm is wrapped up in a splint and James wrap and when asked about it she says that it is related to a dog bite that happened "a long time ago." The patient was just recently here for a comminuted right humerus fracture and subsequent surgical repair with inpatient stay. It appears the patient was just discharged yesterday. Patient complains of some pain to the right foot and says that it may be broken. She says there has been some type of a fall but it was also a long time ago. She says that when she tries to bear weight on the right leg that is just "gives out." ED Past Medical Hx - Past Medical History Previous Medical History?: Yes Hx Psychiatric Treatment: Yes (ETOH abuse) Hx COPD: Yes Additional medical history: "brain anureysm in 1990" - Surgical History Past Surgical History?: Yes Additional Surgical History: "brain anureysm" - Social History Smoking Status: Current Every Day Smoker Substance Use Type: None - Medications Home Medications: Home Medications Medication Instructions Recorded Confirmed Last Taken Type Levothyroxine Sodium [Unithroid] 100 mcg PO DAILY 03/21/15 06/14/19 Unknown History Ibuprofen [Motrin 600 MG tab] 600 mg PO Q6HR #20 tablet 03/22/15 06/14/19 Unknown Rx Oxycodone HCl/Acetaminophen 1 each PO Q6HR PRN #14 tablet 06/11/19 06/14/19 Unknown Rx [Percocet 7.5/325 mg] ED Review of Systems ROS: Stated complaint: R HIP PAIN Other details as noted in HPI Comment: All other systems reviewed and negative Constitutional: weakness. denies: fever Eyes: denies: eye pain, vision change ENT: denies: ear pain, throat pain Respiratory: denies: cough, shortness of breath Cardiovascular: denies: chest pain, palpitations Gastrointestinal: denies: abdominal pain, nausea Genitourinary: denies: dysuria, discharge Musculoskeletal: arthralgia, myalgia Skin: denies: rash, lesions Neurological: weakness. denies: headache, numbness Physical Exam - Physical Exam Vital Signs: Vital Signs 06/14/19 06/14/19 14:03 14:10 Temperature 98.4 F 98 F Pulse Rate 86 71 Respiratory 16 Rate Blood Pressure 103/43 Blood Pressure 127/75 [Right] O2 Sat by Pulse 98 Oximetry Physical Exam: GENERAL: The patient is well-developed well-nourished. HENT: Normocephalic. Atraumatic. Patient has moist mucous membranes. EYES: Extraocular motions are intact. NECK: Supple. Trachea is midline. CHEST/LUNGS: Clear to auscultation. There is no respiratory distress noted. HEART/CARDIOVASCULAR: Regular. There is no tachycardia. There is no murmur. ABDOMEN: Abdomen is soft, nontender. Patient has normal bowel sounds. There is no abdominal distention. SKIN: Skin is warm and dry. NEURO: The patient is awake, alert, and oriented. The patient is cooperative. The patient has no focal neurologic deficits. The patient has normal speech. MUSCULOSKELETAL: There is tenderness to palpation of the right hip. The right lower extremity is externally rotated and shortened compared to the left. There is decreased range of motion of the right upper extremity secondary to recent fracture and surgery. Radial pulse +2 over 4 and capillary refill less than 2 seconds to the right upper extremity. Right dorsalis pedis pulse is also +2 over 4 with a capillary refill less than 2 seconds to the right foot. ED Course Vital Signs 06/14/19 06/14/19 14:03 14:10 Temperature 98.4 F 98 F Pulse Rate 86 71 Respiratory 16 Rate Blood Pressure 103/43 Blood Pressure 127/75 [Right] O2 Sat by Pulse 98 Oximetry - Consultations Consultation #1: 06/14/19 19:02 I spoke with the orthopedic surgeon staffing operations manager, Dr. Matos, who is aware of the patient's right intertrochanteric fracture and says that he will take her to the operating room for surgical repair tomorrow, 06/15. He would like the patient admitted to the hospitalist service and he will consult. ED Medical Decision Making - Lab Data Result diagrams: 06/14/19 15:17 06/14/19 15:17 - Medical Decision Making This patient presents with the complaint of some right hip pain, right foot pain, and the inability to bear weight on the right lower extremity secondary to the pain and weakness. X-rays were done of the femur, tib-fib and right foot that ultimately show a right intertrochanteric comminuted fracture. She is neurovascularly intact. Labs have been unremarkable. The orthopedist has been contacted and consult. The patient was accepted for admission by the hospitalist, Dr. Orellana. - Differential Diagnosis hip fracture, foot fracture, sprain, strain Critical Care Time: No Critical care attestation.: If time is entered above; I have spent that time in minutes in the direct care of this critically ill patient, excluding procedure time. ED Disposition Clinical Impression: Intertrochanteric fracture of right femur Qualifiers: Encounter type: initial encounter Fracture type: closed Fracture alignment: displaced Qualified Code(s): S72.141A - Displaced intertrochanteric fracture of right femur, initial encounter for closed fracture Anemia Qualifiers: Anemia type: unspecified type Qualified Code(s): D64.9 - Anemia, unspecified Disposition: OP ADMIT IP TO THIS HOSP Is pt being admited?: Yes Condition: Fair Time of Disposition: 17:55
[2019-06-14 15:35] LABS: Basophils % (Auto) 0.2 % (0.0-1.8); Eosinophils # (Auto) 0.1 K/mm3 (0.0-0.4); Eosinophils % (Auto) 0.7 % (0.0-4.3); Hemoglobin 9.4 gm/dl (10.1-14.3); Lymphocytes # (Auto) 1.1 K/mm3 (1.2-5.4); Lymphocytes % (Auto) 12.5 % (13.4-35.0); Mean Corpuscular HGB Conc 34 % (30-34); Mean Corpuscular Hemoglobin 30 pg (28-32); Mean Corpuscular Volume 90 fl (79-97); Monocytes # (Auto) 0.7 K/mm3 (0.0-0.8); Monocytes % (Auto) 8.5 % (0.0-7.3); Platelet Count 377 K/mm3 (140-440); Red Blood Count 3.12 M/mm3 (3.65-5.03); Red Cell Distribution Width 13.7 % (13.2-15.2)
[2019-06-14 15:52] LABS: Alanine Aminotransferase 35 units/L (7-56); Albumin 3.2 g/dL (3.9-5); BUN/Creatinine Ratio 48; Blood Urea Nitrogen 19 mg/dL (7-17); Hemolysis Index 2
--- NOTE | 2019-06-14 16:21 | XRay Report ---
RIGHT FEMUR, 2 VIEWS INDICATION: right leg pain. COMPARISON: None. IMPRESSION: A comminuted intertrochanteric fracture is identified in the proximal right femur. There is mild medial displacement of the lesser trochanter. The remainder of the right femur is intact. Th ere is normal articulation at the right hip joint. No significant DJD. RIGHT TIBIA AND FIBULA, 2 VIEWS INDICATION: right leg pain. COMPARISON: None. IMPRESSION: No acute osseous or soft tissue abnormality. No significant DJD. RIGHT FOOT, 3 VIEWS INDICATION: right leg pain. COMPARISON: None. IMPRESSION: No acute osseous or soft tissue abnormality. No significant DJD. Signer Name: Terence Henao Jr, MD Signed: 06/14/2019 4:16 PM Workstation Name: [id number]
[2019-06-14] MEDS: NACL 0.9% 1000 ML 1,000 ML IV SCH (23:01)
[2019-06-14] MEDS ORDERED: DILAUDID IV PRN (23:29)
[2019-06-14] MEDS ORDERED: TYLENOL PO PRN (23:29)
[2019-06-14] MEDS ORDERED: SODIUM CHLORIDE FLUSH SYRINGE 10 ML IV PRN (23:29)
[2019-06-14] MEDS ORDERED: ZOFRAN IV PRN (23:29)
[2019-06-14] MEDS ORDERED: ATIVAN IV PRN (23:32)
--- NOTE | 2019-06-14 23:38 | Event Note ---
Date: 06/14/19 See history and physical in the reports Right femur intertrochanteric fracture EtOH dependence COPD Nicotine dependence
[2019-06-14] MEDS ORDERED: HABITROL TD ONE (23:55)
--- NOTE | 2019-06-15 00:03 | History and Physical Report ---
CHIEF COMPLAINT: 1. Right lower extremity pain. 2. Status post fall. HISTORY OF PRESENT ILLNESS: A 63-year-old female comes in for right lower extremity pain. The patient had a fall about a week ago. The patient also has a right arm dog bite which is covered with a dressing. The dog bite was a couple of weeks ago. The patient also has a comminuted right humerus fracture and subsequent surgical repair with inpatient stay. The patient also complains of right foot pain. The patient unable to walk because of the right lower extremity pain. PAST MEDICAL HISTORY: Significant for COPD, ETOH abuse and brain aneurysm in 1990. PAST SURGICAL HISTORY: Brain aneurysm repair. SOCIAL HISTORY: Current everyday smoker. FAMILY HISTORY: Hypertension. CURRENT MEDICATIONS: Levothyroxine 100 mcg p.o. daily, oxycodone 1 tablet of 7.5 q.6 p.r.n. REVIEW OF SYSTEMS: Significant for right lower extremity pain at about 8 on a scale of 1-10. Decreased range of motion. Also, dog bite on the right forearm. A 14-point review of systems done. PHYSICAL EXAMINATION: GENERAL: Elderly female, cooperative during examination. VITAL SIGNS: Blood pressure is 127/75, temperature is 98.4, pulse is 86 and sats are 98%. HEENT: Unremarkable. Pupils equal and reactive. NECK: Supple, no lymphadenopathy, no thyromegaly. LUNGS: Clear to auscultation and percussion. Good air entry. CARDIOVASCULAR: S1, S2 heard. No gallop, no murmur, no rub. Apical impulse in left fifth intercostal space and midclavicular line. ABDOMEN: Soft and benign. No hepatosplenomegaly. No guarding, no rigidity. Hernial orifices are normal. EXTREMITIES: Good pedal pulses. No pedal edema. CENTRAL NERVOUS SYSTEM: Alert and oriented x 4, nonfocal exam. SKIN: Normal. EXTREMITIES: Right lower extremity with very decreased range of motion at the right hip. Tenderness present in the hip region. Right femur exam, comminuted intertrochanteric fracture in the proximal right femur. Medial displacement of the lesser trochanter. The remainder of the right femur is normal. Tibia and fibula, right side, normal. No fracture. Right foot, no acute osseous or soft tissue abnormality. LABORATORY DATA: White count is 8600, H and H are 9.4 and 28.0, platelet count is 377,000. Sodium is 142, potassium is 3.5, chloride is 106, BUN and creatinine 19 and 0.4, glucose is 139. Albumin is 3.2. TSH is 0.018. ASSESSMENT AND PLAN: 1. Right femur intertrochanteric fracture. The patient to be taken for open reduction and internal fixation by Dr. Matos. Pain management in the meantime. 2. Hypothyroidism. Continue levothyroxine. 3. Nicotine dependence. Nicoderm patch were initiated. 4. ETOH dependence. Ativan 1 mg every 4 hours p.r.n. 5. Hypertension. IV fluids for now. 6. Deep venous thrombosis prophylaxis, SCDs. 7. Anemia. Anemia workup. Iron studies, folic acid and B12 ordered. JOB# [id number] JACKIE/NTS
[2019-06-15 01:02] LABS: Bilirubin,Urine NEG (Negative); Blood,Urine NEG (Negative); Color,Urine Amber (Yellow); Protein,Urine <15 mg/dL mg/dL (Negative)
[2019-06-15 01:05] LABS: Amphetamine Screen,Urine PRESUMPTIVE NEGATIVE; Benzodiazepines Screen,Urine PRESUMPTIVE NEGATIVE; Cannabinoid Screen,Urine PRESUMPTIVE NEGATIVE; Cocaine Screen,Urine PRESUMPTIVE NEGATIVE; Methadone Screen,Urine PRESUMPTIVE NEGATIVE; Opiate Screen,Urine PRESUMPTIVE NEGATIVE
[2019-06-15] MEDS ORDERED: HABITROL TD ONE (02:00)
[2019-06-15 02:02] LABS: Alanine Aminotransferase 31 units/L (7-56); Albumin 2.8 g/dL (3.9-5); BUN/Creatinine Ratio 38; Blood Urea Nitrogen 19 mg/dL (7-17); Calcium 8.4 mg/dL (8.4-10.2); Hemolysis Index 3
[2019-06-15 02:33] LABS: % Iron Saturation 9.22 %
[2019-06-15] MEDS: PERCOCET 5/325 PO PRN (04:01)
[2019-06-15] MEDS: NACL 0.9% 1000 ML 1,000 ML IV SCH ×2 (04:05→18:06)
[2019-06-15] MEDS ORDERED: SYNTHROID PO SCH (06:00)
[2019-06-15 06:08] LABS: Basophils % (Auto) 0.4 % (0.0-1.8); Eosinophils # (Auto) 0.2 K/mm3 (0.0-0.4); Eosinophils % (Auto) 2.9 % (0.0-4.3); Hematocrit 24.5 % (30.3-42.9); Hemoglobin 8.3 gm/dl (10.1-14.3); Lymphocytes # (Auto) 1.2 K/mm3 (1.2-5.4); Lymphocytes % (Auto) 14.9 % (13.4-35.0); Mean Corpuscular HGB Conc 34 % (30-34); Mean Corpuscular Hemoglobin 30 pg (28-32); Mean Corpuscular Volume 89 fl (79-97); Monocytes # (Auto) 0.9 K/mm3 (0.0-0.8); Monocytes % (Auto) 11.4 % (0.0-7.3); Platelet Count 326 K/mm3 (140-440); Red Blood Count 2.77 M/mm3 (3.65-5.03); Red Cell Distribution Width 13.6 % (13.2-15.2)
[2019-06-15] MEDS: DUONEB *Not for PRN Use IH SCH ×4 (07:33→21:22)
[2019-06-15] MEDS: PEPCID IV SCH ×2 (11:06→21:42)
[2019-06-15] MEDS: SODIUM CHLORIDE FLUSH SYRINGE 10 ML IV SCH ×2 (11:07→21:42)
[2019-06-15] MEDS ORDERED: K-DUR PO ONE ×2 (14:05→18:00)
--- NOTE | 2019-06-15 14:17 | Progress Note ---
Assessment and Plan Assessment and plan: Right hip fracture - The patient is consulted and will do surgery - Pain control malnutrition - Nutrition consult Alcohol abuse - On [facility] protocol hypokalemia - replete - Check BMP in the morning Dementia - Supportive care DVT prophylaxis - SCDs Disposition - Continue inpatient care History Interval history: Patient was seen and evaluated this morning, Patient is c/o of right hip pain. patient is a poor historian. Hospitalist Physical - Physical exam Narrative exam: Not in cardiopulmonary distress. The patient appeared well nourished and normally developed. Vital signs as documented. Head exam is unremarkable. No scleral icterus . Neck is without jugular venous distension, thyromegaly, or carotid bruits. Lungs are clear to auscultation. Cardiac exam reveals regular rate and Rhythm. Abdominal exam reveals normal bowel sounds, no masses, no organomegaly and no aortic enlargement. Extremities decreased range of motion on the right leg, there is a cast on the right arm. COMMUNITY OUTREACH COORDINATOR: Alert and oriented 3. No focal weakness. - Constitutional Vitals: Temp Pulse Resp BP Pulse Ox 98.6 F 87 18 103/50 100 06/15/19 12:00 06/15/19 12:00 06/15/19 12:00 06/15/19 12:00 06/15/19 12:00 Results - Labs CBC & Chem 7: 06/15/19 05:28 06/15/19 00:30 Labs: Laboratory Last Values WBC 8.1 K/mm3 (4.5-11.0) 06/15/19 05:28 RBC 2.77 M/mm3 (3.65-5.03) L 06/15/19 05:28 Hgb 8.3 gm/dl (10.1-14.3) L 06/15/19 05:28 Hct 24.5 % (30.3-42.9) L 06/15/19 05:28 MCV 89 fl (79-97) 06/15/19 05:28 MCH 30 pg (28-32) 06/15/19 05:28 MCHC 34 % (30-34) 06/15/19 05:28 RDW 13.6 % (13.2-15.2) 06/15/19 05:28 Plt Count 326 K/mm3 (140-440) 06/15/19 05:28 Lymph % (Auto) 14.9 % (13.4-35.0) 06/15/19 05:28 Bowman % (Auto) 11.4 % (0.0-7.3) H 06/15/19 05:28 Eos % (Auto) 2.9 % (0.0-4.3) 06/15/19 05:28 Baso % (Auto) 0.4 % (0.0-1.8) 06/15/19 05:28 Lymph # 1.2 K/mm3 (1.2-5.4) 06/15/19 05:28 Bowman # 0.9 K/mm3 (0.0-0.8) H 06/15/19 05:28 Eos # 0.2 K/mm3 (0.0-0.4) 06/15/19 05:28 Baso # 0.0 K/mm3 (0.0-0.1) 06/15/19 05:28 Seg Neutrophils % 70.4 % (40.0-70.0) H 06/15/19 05:28 Seg Neutrophils # 5.7 K/mm3 (1.8-7.7) 06/15/19 05:28 Sodium 140 mmol/L (137-145) 06/15/19 00:30 Potassium 3.3 mmol/L (3.6-5.0) L 06/15/19 00:30 Chloride 106.5 mmol/L (98-107) 06/15/19 00:30 Carbon Dioxide 21 mmol/L (22-30) L 06/15/19 00:30 16 mmol/L 06/15/19 00:30 BUN 19 mg/dL (7-17) H 06/15/19 00:30 0.5 mg/dL (0.7-1.2) L 06/15/19 00:30 Estimated GFR > 60 ml/min 06/15/19 00:30 38 % 06/15/19 00:30 Glucose 134 mg/dL (65-100) H 06/15/19 00:30 5.1 % (4-6) 06/15/19 00:06 Calcium 8.4 mg/dL (8.4-10.2) 06/15/19 00:30 Iron 20 ug/dL (37-170) L 06/15/19 00:06 TIBC 217 mcg/dL (250-450) L 06/15/19 00:06 % Saturation 9.22 % 06/15/19 00:06 176 mg/dl (192-382) L 06/15/19 00:06 0.60 mg/dL (0.1-1.2) 06/15/19 00:30 AST 25 units/L (5-40) 06/15/19 00:30 ALT 31 units/L (7-56) 06/15/19 00:30 96 units/L (35-129) 06/15/19 00:30 5.8 g/dL (6.3-8.2) L 06/15/19 00:30 2.8 g/dL (3.9-5) L 06/15/19 00:30 0.9 % 06/15/19 00:30 Vitamin B12 288.1 pg/mL (211-911) 06/15/19 00:06 TSH 0.018 mlU/mL (0.270-4.200) L 06/14/19 15:17 Shivani (Yellow) 06/14/19 00:30 Clear (Clear) 06/14/19 00:30 5.0 (5.0-7.0) 06/14/19 00:30 Ur Specific [place] 1.024 (1.003-1.030) 06/14/19 00:30 <15 mg/dl mg/dL (Negative) 06/14/19 00:30 50 mg/dL (Negative) 06/14/19 00:30 20 mg/dL (Negative) 06/14/19 00:30 Neg (Negative) 06/14/19 00:30 Neg (Negative) 06/14/19 00:30 Neg (Negative) 06/14/19 00:30 4.0 mg/dL (<2.0) 06/14/19 00:30 Ur Leukocyte Esterase Neg (Negative) 06/14/19 00:30 2.0 /HPF (0.0-6.0) 06/14/19 00:30 1.0 /HPF (0.0-6.0) 06/14/19 00:30 U Epithel Cells (Auto) 2.0 /HPF (0-13.0) 06/14/19 00:30 Presumptive negative 06/14/19 Unknown Presumptive negative 06/14/19 Unknown Ur Barbiturates Screen Presumptive negative 06/14/19 Unknown Ur Phencyclidine Scrn Presumptive negative 06/14/19 Unknown Ur Amphetamines Screen Presumptive negative 06/14/19 Unknown U Benzodiazepines Scrn Presumptive negative 06/14/19 Unknown Presumptive negative 06/14/19 Unknown U Marijuana (THC) Screen Presumptive negative 06/14/19 Unknown Disclamer 06/14/19 Unknown Plasma/Serum Alcohol < 0.01 % (0-0.07) 06/14/19 15:17 Active Medications - Current Medications Current Medications: Generic Name Dose Route Start Last Admin Trade Name Freq PRN Reason Stop Dose Admin Acetaminophen 650 mg 06/14/19 23:29 Tylenol PO Q4H PRN Pain MILD(1-3)/Fever >100.5/MONTANO Albuterol/Ipratropium 1 ampul 06/15/19 08:00 06/15/19 07:33 Duoneb *Not For Prn Use* IH 1 ampul QIDRT ROMAN Administration Famotidine 20 mg 06/15/19 10:00 06/15/19 11:06 Pepcid IV 20 mg BID ROMAN Administration Hydromorphone HCl 0.5 mg 06/14/19 23:29 Dilaudid IV Q3H PRN Pain , Severe (7-10) Sodium Chloride 1,000 mls @ 100 mls/hr 06/14/19 23:00 06/15/19 04:05 Nacl 0.9% 1000 Ml IV 100 mls/hr DIRECT ROMAN Administration Levothyroxine Sodium 75 mcg 06/15/19 14:10 Synthroid PO DAILY@0600 ROMAN Lorazepam 1 mg 06/14/19 23:32 Ativan IV Q4H PRN Anxiety Ondansetron HCl 4 mg 06/14/19 23:29 Zofran IV Q8H PRN Nausea And Vomiting Oxycodone/Acetaminophen 1 tab 06/14/19 23:29 06/15/19 04:01 Percocet 5/325 PO 1 tab Q6H PRN Administration Pain, Moderate (4-6) Potassium Chloride 40 meq 06/15/19 14:05 K-Dur PO 06/15/19 14:06 ONCE ONE Sodium Chloride 10 ml 06/15/19 10:00 06/15/19 11:07 Sodium Chloride Flush Syringe 10 Ml IV Not Given BID ORMAN Sodium Chloride 10 ml 06/14/19 23:29 Sodium Chloride Flush Syringe 10 Ml IV PRN PRN LINE FLUSH
[2019-06-15] MEDS ORDERED: MORPHINE ONE (17:19)
[2019-06-15] MEDS ORDERED: MARCAINE 0.5% INFILTRATI ONE (17:19)
[2019-06-15] MEDS ORDERED: TORADOL ONE (17:19)
[2019-06-16] MEDS: PERCOCET 5/325 PO PRN ×2 (03:00→21:32)
[2019-06-16] MEDS: NACL 0.9% 1000 ML 1,000 ML IV SCH (03:01)
[2019-06-16 04:32] LABS: Basophils % (Auto) 0.4 % (0.0-1.8); Eosinophils # (Auto) 0.2 K/mm3 (0.0-0.4); Eosinophils % (Auto) 2.3 % (0.0-4.3); Hematocrit 23.4 % (30.3-42.9); Hemoglobin 7.8 gm/dl (10.1-14.3); Lymphocytes # (Auto) 1.7 K/mm3 (1.2-5.4); Lymphocytes % (Auto) 20.6 % (13.4-35.0); Mean Corpuscular HGB Conc 34 % (30-34); Mean Corpuscular Hemoglobin 30 pg (28-32); Mean Corpuscular Volume 89 fl (79-97); Monocytes # (Auto) 0.7 K/mm3 (0.0-0.8); Monocytes % (Auto) 8.7 % (0.0-7.3); Platelet Count 347 K/mm3 (140-440); Red Blood Count 2.64 M/mm3 (3.65-5.03); Red Cell Distribution Width 13.5 % (13.2-15.2)
[2019-06-16 04:47] LABS: BUN/Creatinine Ratio 28; Blood Urea Nitrogen 11 mg/dL (7-17); Calcium 7.8 mg/dL (8.4-10.2); Hemolysis Index 10
[2019-06-16] MEDS: SYNTHROID PO SCH (05:43)
[2019-06-16] MEDS: DUONEB *Not for PRN Use IH SCH (08:16)
[2019-06-16] MEDS ORDERED: MARCAINE 0.5% INFILTRATI ONE (10:39)
[2019-06-16] MEDS ORDERED: NACL 0.9% 0 ML ONE ×2 (10:39→10:40)
[2019-06-16] MEDS ORDERED: TORADOL ONE (10:39)
[2019-06-16] MEDS ORDERED: MORPHINE ONE (10:39)
--- NOTE | 2019-06-16 10:46 | Anesthesia Day of Surgery ---
Anesthesia Day of Surgery - Day of Surgery Patient Examined: Yes Patient H&P Reviewed: Yes Patient is NPO: Yes
--- NOTE | 2019-06-16 10:46 | Anesthesia Consultation ---
Anesthesia Consult and Med Hx Date of service: 06/16/19 - Airway Anesthetic Teeth Evaluation: Poor (denies loose teeth) ROM Head & Neck: Adequate Mental/Hyoid Distance: Adequate Mallampati Class: Class I Intubation Access Assessment: Good - Pulmonary Exam CTA: Yes - Cardiac Exam Cardiac Exam: RRR - Pre-Operative Health Status ASA Pre-Surgery Classification: ASA3 Proposed Anesthetic Plan: General - Pre-Anesthesia Comment Pre-Anesthesia Comments: Discussed risks/benefits of GA vs spinal/epidural and patient prefers GA - Pulmonary Hx Smoking: Yes (1/2 PPD) Hx Respiratory Symptoms: No COPD: Yes (noted in chart but patient denies. No home inhalers.) Home Oxygen Therapy: No - Cardiovascular System Hx Hypertension: No Hx Heart Attack/AMI: No Hx Percutaneous Transluminal Coronary Angioplasty (PTCA): No Hx Cardia Arrhythmia: No - Central Nervous System Hx Seizures: No CVA: No Hx Psychiatric Problems: Yes - Gastrointestinal Hx Gastroesophageal Reflux Disease: No - Endocrine Hx Renal Disease: No Hx Liver Disease: No Hx Insulin Dependent Diabetes: No Hx Non-Insulin Dependent Diabetes: No Hx Hypothyroidism: Yes - Hematic Hx Anemia: Yes - Other Systems Hx Alcohol Use: Yes (hx alcoholism noted in chart. Last drink >1wk. Denies hx withdrawal.) Hx Obesity: No (malnutrition) - Additional Comments Anesthesia Medical History Comments: No hx anesthetic complications. Anemia noted, T&S ordered preop.
[2019-06-16] MEDS ORDERED: VERSED IV NR (11:00)
[2019-06-16] MEDS ORDERED: NEURONTIN PO NR (11:00)
[2019-06-16] MEDS: LACTATED RINGERS 1,000 ML IV SCH ×2 (11:23→16:09)
[2019-06-16] MEDS ORDERED: VANCOMYCIN/NS 1 GM/250 ML 1 GM/250 ML BAG IV NR (11:39)
[2019-06-16] MEDS ORDERED: DIPRIVAN 10 MG/ML IV ONE (12:12)
[2019-06-16] MEDS ORDERED: SUBLIMAZE ONE (12:14)
[2019-06-16] MEDS ORDERED: XYLOCAINE MPF 2% ONE (13:04)
[2019-06-16] MEDS ORDERED: DILAUDID ONE (13:04)
[2019-06-16] MEDS ORDERED: NACL 0.9% IR ONE (13:05)
[2019-06-16] MEDS ORDERED: MARCAINE 0.25% INFILTRATI ONE ×2 (13:25→13:35)
[2019-06-16] MEDS ORDERED: ZOFRAN ONE (13:32)
--- NOTE | 2019-06-16 14:11 | XRay Report ---
RIGHT HIP, ONE VIEW INDICATION: IM RT HIP NAILING CLOSED RED//RT HIP FX. COMPARISON: None. IMPRESSION: A single fluoroscopic AP view of the right hip is presented during surgery. An intertroc hanteric fracture has been internally fixated with intramedullary khoa and femoral neck screw. Alignme nt is near-anatomic. Normal articulation at the right hip. No obvious soft tissue abnormality. Pleas e correlate with the procedural report by Dr. Matos as needed. Signer Name: Terence Henao Jr, MD Signed: 06/16/2019 2:07 PM Workstation Name: [id number]
[2019-06-16] MEDS ORDERED: MORPHINE IV PRN (14:28)
--- NOTE | 2019-06-16 14:34 | Procedure Note ---
Date of procedure: 06/16/19 Pre-op diagnosis: right intertrochanteric hip fracture Post-op diagnosis: same Procedure: Closed reduction insertion of intramedullary nail right femur Procedure The patient was brought to the OR initially on table in supine position following induction and intubation by anesthesia the patient was placed onto the [place] table with the right lower extremity and longitudinal traction next the C- arm was brought in the fracture was reduced in both the AP and lateral views following this the left hip and thigh were prepped and draped in the usual sterile manner. A timeout procedure was done to identify the patient and the correct operative site. Stab wound or incision was made proximal to the greater trochanter this was taken down sharply through skin and subcutaneous using digital palpation and they all the entry point onto the proximal femur was located next a threaded guidewire was inserted across the proximal fracture into the medullary canal this was then RO overreamed with a large drill bit A guidewire was inserted across the fracture site into the distal femur again AP and lateral views were obtained showing good placement of the guidewire following this the proximal femur was reamed to a 12.5 mm diameter this was followed by insertion of a 11 x 380 intramedullary nail again the nail was inserted and a antegrade fashion a secondary incision was made distal to the greater trochanter again using the targeting device a 100 mm helical blade was was inserted into the femoral neck and head region this was followed by insertion of a distal interlocking screw again under C-arm visualization AP and lateral views were obtained showing good reduction of the fracture and placement of the hardware following this the wound was copiously irrigated and was closed in a standard routine fashion. Dressings were applied the patient tolerated the procedure there were no complications she was sent to postanesthesia recovery in a stable condition Anesthesia: GIAN Surgeon: LAUREEN GOMEZ Cuff Folder: IVAN MARTINEZ Estimated blood loss: other (300 cc) Pathology: none Condition: stable Disposition: PACU
[2019-06-16] MEDS: DILAUDID IV PRN ×2 (14:50→15:05)
[2019-06-16] MEDS ORDERED: SODIUM CHLORIDE FLUSH SYRINGE 10 ML IV NR (15:00)
[2019-06-16] MEDS ORDERED: PHENYLEPHRINE/NS Syringe 1,000 MCG/10 ML IV ONE (15:00)
[2019-06-16] MEDS: PEPCID IV SCH ×2 (16:09→21:29)
[2019-06-16] MEDS: SODIUM CHLORIDE FLUSH SYRINGE 10 ML IV SCH ×2 (16:10→21:29)
--- NOTE | 2019-06-16 17:13 | Progress Note ---
Assessment and Plan Assessment and plan: Right hip fracture - The patient is consulted and will have surgery today - Pain control malnutrition - Nutrition consult Alcohol abuse - On [facility] protocol hypokalemia - replete - Check BMP in the morning Dementia - Supportive care DVT prophylaxis - SCDs Disposition - Continue inpatient care History Interval history: Patient was seen and evaluated this morning, Patient is c/o of right hip pain. patient is a poor historian. Hospitalist Physical - Physical exam Narrative exam: Not in cardiopulmonary distress. The patient appeared well nourished and normally developed. Vital signs as documented. Head exam is unremarkable. No scleral icterus . Neck is without jugular venous distension, thyromegaly, or carotid bruits. Lungs are clear to auscultation. Cardiac exam reveals regular rate and Rhythm. Abdominal exam reveals normal bowel sounds, no masses, no organomegaly and no aortic enlargement. Extremities decreased range of motion on the right leg, there is a cast on the right arm. 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 No focal weakness. - Constitutional Vitals: Temp Pulse Resp BP Pulse Ox 97.4 F L 79 18 112/48 97 06/16/19 15:32 06/16/19 15:32 06/16/19 15:32 06/16/19 15:32 06/16/19 15:32 Results - Labs CBC & Chem 7: 06/16/19 03:47 06/16/19 03:47 Labs: Laboratory Last Values WBC 8.5 K/mm3 (4.5-11.0) 06/16/19 03:47 RBC 2.64 M/mm3 (3.65-5.03) L 06/16/19 03:47 Hgb 7.8 gm/dl (10.1-14.3) L 06/16/19 03:47 Hct 23.4 % (30.3-42.9) L 06/16/19 03:47 MCV 89 fl (79-97) 06/16/19 03:47 MCH 30 pg (28-32) 06/16/19 03:47 MCHC 34 % (30-34) 06/16/19 03:47 RDW 13.5 % (13.2-15.2) 06/16/19 03:47 Plt Count 347 K/mm3 (140-440) 06/16/19 03:47 Lymph % (Auto) 20.6 % (13.4-35.0) 06/16/19 03:47 [place] % (Auto) 8.7 % (0.0-7.3) H 06/16/19 03:47 Eos % (Auto) 2.3 % (0.0-4.3) 06/16/19 03:47 Baso % (Auto) 0.4 % (0.0-1.8) 06/16/19 03:47 Lymph # 1.7 K/mm3 (1.2-5.4) 06/16/19 03:47 [place] # 0.7 K/mm3 (0.0-0.8) 06/16/19 03:47 Eos # 0.2 K/mm3 (0.0-0.4) 06/16/19 03:47 Baso # 0.0 K/mm3 (0.0-0.1) 06/16/19 03:47 Seg Neutrophils % 68.0 % (40.0-70.0) 06/16/19 03:47 Seg Neutrophils # 5.8 K/mm3 (1.8-7.7) 06/16/19 03:47 Sodium 143 mmol/L (137-145) 06/16/19 03:47 Potassium 3.9 mmol/L (3.6-5.0) 06/16/19 03:47 Chloride 111.3 mmol/L (98-107) H 06/16/19 03:47 Carbon Dioxide 21 mmol/L (22-30) L 06/16/19 03:47 15 mmol/L 06/16/19 03:47 BUN 11 mg/dL (7-17) 06/16/19 03:47 0.4 mg/dL (0.7-1.2) L 06/16/19 03:47 Estimated GFR > 60 ml/min 06/16/19 03:47 28 % 06/16/19 03:47 Glucose 132 mg/dL (65-100) H 06/16/19 03:47 5.1 % (4-6) 06/15/19 00:06 Calcium 7.8 mg/dL (8.4-10.2) L 06/16/19 03:47 Iron 20 ug/dL (37-170) L 06/15/19 00:06 TIBC 217 mcg/dL (250-450) L 06/15/19 00:06 % Saturation 9.22 % 06/15/19 00:06 176 mg/dl (192-382) L 06/15/19 00:06 0.60 mg/dL (0.1-1.2) 06/15/19 00:30 AST 25 units/L (5-40) 06/15/19 00:30 ALT 31 units/L (7-56) 06/15/19 00:30 96 units/L (35-129) 06/15/19 00:30 5.8 g/dL (6.3-8.2) L 06/15/19 00:30 2.8 g/dL (3.9-5) L 06/15/19 00:30 0.9 % 06/15/19 00:30 Vitamin B12 288.1 pg/mL (211-911) 06/15/19 00:06 TSH 0.018 mlU/mL (0.270-4.200) L 06/14/19 15:17 Shivani (Yellow) 06/14/19 00:30 Clear (Clear) 06/14/19 00:30 5.0 (5.0-7.0) 06/14/19 00:30 Ur Specific [place] 1.024 (1.003-1.030) 06/14/19 00:30 <15 mg/dl mg/dL (Negative) 06/14/19 00:30 50 mg/dL (Negative) 06/14/19 00:30 20 mg/dL (Negative) 06/14/19 00:30 Neg (Negative) 06/14/19 00:30 Neg (Negative) 06/14/19 00:30 Neg (Negative) 06/14/19 00:30 4.0 mg/dL (<2.0) 06/14/19 00:30 Ur Leukocyte Esterase Neg (Negative) 06/14/19 00:30 2.0 /HPF (0.0-6.0) 06/14/19 00:30 1.0 /HPF (0.0-6.0) 06/14/19 00:30 U Epithel Cells (Auto) 2.0 /HPF (0-13.0) 06/14/19 00:30 Presumptive negative 06/14/19 Unknown Presumptive negative 06/14/19 Unknown Ur Barbiturates Screen Presumptive negative 06/14/19 Unknown Ur Phencyclidine Scrn Presumptive negative 06/14/19 Unknown Ur Amphetamines Screen Presumptive negative 06/14/19 Unknown U Benzodiazepines Scrn Presumptive negative 06/14/19 Unknown Presumptive negative 06/14/19 Unknown U Marijuana (THC) Screen Presumptive negative 06/14/19 Unknown Disclamer 06/14/19 Unknown Plasma/Serum Alcohol < 0.01 % (0-0.07) 06/14/19 15:17 Blood Type A NEGATIVE 06/16/19 11:05 Antibody Screen Negative 06/16/19 11:05 Active Medications - Current Medications Current Medications: Generic Name Dose Route Start Last Admin Trade Name Freq PRN Reason Stop Dose Admin Acetaminophen 650 mg 06/14/19 23:29 Tylenol PO Q4H PRN Pain MILD(1-3)/Fever >100.5/MONTANO Albuterol/Ipratropium 1 ampul 06/16/19 20:00 Duoneb *Not For Prn Use* IH BIDRT ROMAN Enoxaparin Sodium 40 mg 06/17/19 10:00 Lovenox SUB-Q QDAY ROMAN Famotidine 20 mg 06/15/19 10:00 06/16/19 16:09 Pepcid IV 20 mg BID ROMAN Administration Gabapentin 300 mg 06/16/19 11:00 06/16/19 11:23 Neurontin PO 06/16/19 21:00 300 mg PREOP NR Administration Hydromorphone HCl 0.5 mg 06/14/19 23:29 06/15/19 21:41 Dilaudid IV 0.5 mg Q3H PRN Administration Pain , Severe (7-10) Sodium Chloride 1,000 mls @ 100 mls/hr 06/14/19 23:00 06/16/19 03:01 Nacl 0.9% 1000 Ml IV 100 mls/hr DIRECT ROMAN Administration Lactated Ringer's 1,000 mls @ 100 mls/hr 06/16/19 11:00 06/16/19 16:09 Lactated Ringers IV 100 mls/hr DIRECT ROMAN Administration Levothyroxine Sodium 75 mcg 06/15/19 14:10 06/16/19 05:43 Synthroid PO 75 mcg DAILY@0600 ROMAN Administration Lorazepam 1 mg 06/14/19 23:32 Ativan IV Q4H PRN Anxiety Midazolam HCl 2 mg 06/16/19 11:00 06/16/19 11:24 Versed IV 06/16/19 23:59 2 mg PREOP NR Administration Morphine Sulfate 4 mg 06/16/19 14:28 Morphine IV Q4H PRN Pain , Severe (7-10) Ondansetron HCl 4 mg 06/14/19 23:29 06/16/19 14:53 Zofran IV 4 mg Q8H PRN Administration Nausea And Vomiting Oxycodone/Acetaminophen 1 tab 06/14/19 23:29 06/16/19 03:00 Percocet 5/325 PO 1 tab Q6H PRN Administration Pain, Moderate (4-6) Sodium Chloride 10 ml 06/15/19 10:00 06/16/19 16:10 Sodium Chloride Flush Syringe 10 Ml IV Not Given BID ROMAN Sodium Chloride 10 ml 06/14/19 23:29 Sodium Chloride Flush Syringe 10 Ml IV PRN PRN LINE FLUSH Sodium Chloride 10 ml 06/16/19 15:00 Sodium Chloride Flush Syringe 10 Ml IV 06/19/19 14:59 PRN NR Nutrition/Malnutrition Assess - Dietary Evaluation Nutrition/Malnutrition Findings: Nutrition Notes Start: 06/15/19 17:35 Freq: Status: Active Protocol: Document 06/15/19 17:35 RM (Rec: 06/15/19 17:42 RM [id number]) Nutrition Notes Need for Assessment generated from: Low BMI Initial or Follow up Assessment Current Diagnosis COPD,Hypertension Other Pertinent Diagnosis Sacral PU, Hx ETOH abuse, Hx brain aneurysm Current Diet Cardiac Labs/Tests Reviewed Pertinent Medications Reviewed Height 5 ft 6 in Weight 49.89 kg [place] Body Weight (kg) 59.09 BMI 17.7 Subjective/Other Information sScreened for Low BMI. 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 Pt stated that she eats all of her meals here. Stated UBW is 110-120 lbs but unsure how long ago she weighed that. Noted temporal wasting. 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 No Is Patient Ambulatory and/or Out of Bed No [facility] 1290.228 Kcal/Kg value to use for calculation 36 Approximate Energy Requirements Using 1796 kcal/Kg Calculation Used for Recommendations Kcal/kg Additional Notes Protein Needs: 60-75g (1.2-1. 5g/kg) Fluid Needs: 1 ml/kcal Nutrition Intervention Change Diet Order: Continue current Add Supplement/Snack (indicate name/kcal Ensure Enlive Chocolate BID /protein ) Provides kCal: 700 Provides Protein (gm) 40 Goal #1 Continue to meet at least 75% of calorie and protein needs via PO and ONS intakes Goal #2 Wt gain/maintenance Anticipated Discharge Needs: Cardberyl diet Follow-Up By: 06/17/19 Additional Comments Follow for PO and ONS intakes
--- NOTE | 2019-06-16 17:18 | Post Anesthesia Evaluation ---
- Post Anesthesia Evaluation Patient Participated: Yes Airway Patent: Yes Stable Respiratory Function: Yes Nausea/Vomiting: No Temp > 96.8F: Yes Pain Manageable: Yes Adequeate Hydration: Yes Anesthesia Complications: No
[2019-06-16] MEDS ORDERED: DUONEB *Not for PRN Use IH SCH (20:00)
[2019-06-17] MEDS: NACL 0.9% 1000 ML 1,000 ML IV SCH (02:59)
[2019-06-17 04:56] LABS: Basophils % (Auto) 0.5 % (0.0-1.8); Eosinophils # (Auto) 0.2 K/mm3 (0.0-0.4); Eosinophils % (Auto) 2.8 % (0.0-4.3); Lymphocytes # (Auto) 1.3 K/mm3 (1.2-5.4); Lymphocytes % (Auto) 16.8 % (13.4-35.0); Mean Corpuscular HGB Conc 34 % (30-34); Mean Corpuscular Hemoglobin 30 pg (28-32); Mean Corpuscular Volume 89 fl (79-97); Monocytes # (Auto) 0.6 K/mm3 (0.0-0.8); Monocytes % (Auto) 8.1 % (0.0-7.3); Platelet Count 390 K/mm3 (140-440); Red Blood Count 2.71 M/mm3 (3.65-5.03); Red Cell Distribution Width 13.8 % (13.2-15.2)
[2019-06-17] MEDS: LACTATED RINGERS 1,000 ML IV SCH ×2 (05:00→17:49)
[2019-06-17] MEDS: SYNTHROID PO SCH (05:02)
[2019-06-17 05:04] LABS: BUN/Creatinine Ratio 13; Blood Urea Nitrogen 8 mg/dL (7-17); Calcium 8.1 mg/dL (8.4-10.2); Hemolysis Index 16
[2019-06-17] MEDS ORDERED: PROVENTIL IH PRN (06:40)
[2019-06-17] MEDS: LOVENOX SUB-Q SCH (09:46)
[2019-06-17] MEDS: PEPCID IV SCH ×2 (09:47→22:27)
[2019-06-17] MEDS: SODIUM CHLORIDE FLUSH SYRINGE 10 ML IV SCH ×2 (09:47→22:29)
[2019-06-17] MEDS: PERCOCET 5/325 PO PRN ×2 (10:37→22:27)
--- NOTE | 2019-06-17 15:16 | Progress Note ---
Assessment and Plan Assessment and plan: Right hip fracture - The patient is consulted and did surgery yesterday - Doing well post operatively - PT/OT working with the patient - Pain control malnutrition - Nutrition consult Alcohol abuse - On [facility] protocol hypokalemia - replete - Check BMP in the morning Dementia - Supportive care DVT prophylaxis - SCDs Disposition - need evaluation for inpatient rehab. History Interval history: Patient was seen and evaluated this morning, Patient is c/o of right hip pain. patient is a poor historian. Hospitalist Physical - Physical exam Narrative exam: Not in cardiopulmonary distress. The patient appeared well nourished and normally developed. Vital signs as documented. Head exam is unremarkable. No scleral icterus . Neck is without jugular venous distension, thyromegaly, or carotid bruits. Lungs are clear to auscultation. Cardiac exam reveals regular rate and Rhythm. Abdominal exam reveals normal bowel sounds, no masses, no organomegaly and no aortic enlargement. Extremities decreased range of motion on the right leg, there is a cast on the right arm. 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 No focal weakness. - Constitutional Vitals: Temp Pulse Resp BP Pulse Ox 97.3 F L 90 20 102/49 94 06/17/19 12:00 06/17/19 12:00 06/17/19 12:00 06/17/19 12:00 06/17/19 12:00 Results - Labs CBC & Chem 7: 06/17/19 03:54 06/17/19 03:54 Labs: Laboratory Last Values WBC 7.7 K/mm3 (4.5-11.0) 06/17/19 03:54 RBC 2.71 M/mm3 (3.65-5.03) L 06/17/19 03:54 Hgb 8.0 gm/dl (10.1-14.3) L 06/17/19 03:54 Hct 24.0 % (30.3-42.9) L 06/17/19 03:54 MCV 89 fl (79-97) 06/17/19 03:54 MCH 30 pg (28-32) 06/17/19 03:54 MCHC 34 % (30-34) 06/17/19 03:54 RDW 13.8 % (13.2-15.2) 06/17/19 03:54 Plt Count 390 K/mm3 (140-440) 06/17/19 03:54 Lymph % (Auto) 16.8 % (13.4-35.0) 06/17/19 03:54 [place] % (Auto) 8.1 % (0.0-7.3) H 06/17/19 03:54 Eos % (Auto) 2.8 % (0.0-4.3) 06/17/19 03:54 Baso % (Auto) 0.5 % (0.0-1.8) 06/17/19 03:54 Lymph # 1.3 K/mm3 (1.2-5.4) 06/17/19 03:54 [place] # 0.6 K/mm3 (0.0-0.8) 06/17/19 03:54 Eos # 0.2 K/mm3 (0.0-0.4) 06/17/19 03:54 Baso # 0.0 K/mm3 (0.0-0.1) 06/17/19 03:54 Seg Neutrophils % 71.8 % (40.0-70.0) H 06/17/19 03:54 Seg Neutrophils # 5.5 K/mm3 (1.8-7.7) 06/17/19 03:54 Sodium 140 mmol/L (137-145) 06/17/19 03:54 Potassium 4.3 mmol/L (3.6-5.0) 06/17/19 03:54 Chloride 105.3 mmol/L (98-107) 06/17/19 03:54 Carbon Dioxide 25 mmol/L (22-30) 06/17/19 03:54 14 mmol/L 06/17/19 03:54 BUN 8 mg/dL (7-17) 06/17/19 03:54 0.6 mg/dL (0.7-1.2) L 06/17/19 03:54 Estimated GFR > 60 ml/min 06/17/19 03:54 13 % 06/17/19 03:54 Glucose 110 mg/dL (65-100) H 06/17/19 03:54 5.1 % (4-6) 06/15/19 00:06 Calcium 8.1 mg/dL (8.4-10.2) L 06/17/19 03:54 Iron 20 ug/dL (37-170) L 06/15/19 00:06 TIBC 217 mcg/dL (250-450) L 06/15/19 00:06 % Saturation 9.22 % 06/15/19 00:06 176 mg/dl (192-382) L 06/15/19 00:06 0.60 mg/dL (0.1-1.2) 06/15/19 00:30 AST 25 units/L (5-40) 06/15/19 00:30 ALT 31 units/L (7-56) 06/15/19 00:30 96 units/L (35-129) 06/15/19 00:30 5.8 g/dL (6.3-8.2) L 06/15/19 00:30 2.8 g/dL (3.9-5) L 06/15/19 00:30 0.9 % 06/15/19 00:30 Vitamin B12 288.1 pg/mL (211-911) 06/15/19 00:06 TSH 0.018 mlU/mL (0.270-4.200) L 06/14/19 15:17 Shivani (Yellow) 06/14/19 00:30 Clear (Clear) 06/14/19 00:30 5.0 (5.0-7.0) 06/14/19 00:30 Ur Specific [place] 1.024 (1.003-1.030) 06/14/19 00:30 <15 mg/dl mg/dL (Negative) 06/14/19 00:30 50 mg/dL (Negative) 06/14/19 00:30 20 mg/dL (Negative) 06/14/19 00:30 Neg (Negative) 06/14/19 00:30 Neg (Negative) 06/14/19 00:30 Neg (Negative) 06/14/19 00:30 4.0 mg/dL (<2.0) 06/14/19 00:30 Ur Leukocyte Esterase Neg (Negative) 06/14/19 00:30 2.0 /HPF (0.0-6.0) 06/14/19 00:30 1.0 /HPF (0.0-6.0) 06/14/19 00:30 U Epithel Cells (Auto) 2.0 /HPF (0-13.0) 06/14/19 00:30 Presumptive negative 06/14/19 Unknown Presumptive negative 06/14/19 Unknown Ur Barbiturates Screen Presumptive negative 06/14/19 Unknown Ur Phencyclidine Scrn Presumptive negative 06/14/19 Unknown Ur Amphetamines Screen Presumptive negative 06/14/19 Unknown U Benzodiazepines Scrn Presumptive negative 06/14/19 Unknown Presumptive negative 06/14/19 Unknown U Marijuana (THC) Screen Presumptive negative 06/14/19 Unknown Disclamer 06/14/19 Unknown Plasma/Serum Alcohol < 0.01 % (0-0.07) 06/14/19 15:17 Blood Type A NEGATIVE 06/16/19 11:05 Antibody Screen Negative 06/16/19 11:05 Active Medications - Current Medications Current Medications: Generic Name Dose Route Start Last Admin Trade Name Freq PRN Reason Stop Dose Admin Acetaminophen 650 mg 06/14/19 23:29 Tylenol PO Q4H PRN Pain MILD(1-3)/Fever >100.5/MONTANO Albuterol 2.5 mg 06/17/19 06:40 Proventil IH Q4HRT PRN Shortness Of Breath Enoxaparin Sodium 40 mg 06/17/19 10:00 06/17/19 09:46 Lovenox SUB-Q 40 mg QDAY ROMAN Administration Famotidine 20 mg 06/15/19 10:00 06/17/19 09:47 Pepcid IV 20 mg BID ROMAN Administration Hydromorphone HCl 0.5 mg 06/14/19 23:29 06/15/19 21:41 Dilaudid IV 0.5 mg Q3H PRN Administration Pain , Severe (7-10) Sodium Chloride 1,000 mls @ 100 mls/hr 06/14/19 23:00 06/17/19 02:59 Nacl 0.9% 1000 Ml IV 100 mls/hr DIRECT ROMAN Administration Lactated Ringer's 1,000 mls @ 100 mls/hr 06/16/19 11:00 06/17/19 05:00 Lactated Ringers IV 100 mls/hr DIRECT ROMAN Administration Levothyroxine Sodium 75 mcg 06/15/19 14:10 06/17/19 05:02 Synthroid PO 75 mcg DAILY@0600 ROMAN Administration Lorazepam 1 mg 06/14/19 23:32 Ativan IV Q4H PRN Anxiety Morphine Sulfate 4 mg 06/16/19 14:28 Morphine IV Q4H PRN Pain , Severe (7-10) Ondansetron HCl 4 mg 06/14/19 23:29 06/16/19 14:53 Zofran IV 4 mg Q8H PRN Administration Nausea And Vomiting Oxycodone/Acetaminophen 1 tab 06/14/19 23:29 06/17/19 10:37 Percocet 5/325 PO 1 tab Q6H PRN Administration Pain, Moderate (4-6) Sodium Chloride 10 ml 06/15/19 10:00 06/17/19 09:47 Sodium Chloride Flush Syringe 10 Ml IV 10 ml BID ROMAN Administration Sodium Chloride 10 ml 06/14/19 23:29 Sodium Chloride Flush Syringe 10 Ml IV PRN PRN LINE FLUSH Sodium Chloride 10 ml 06/16/19 15:00 Sodium Chloride Flush Syringe 10 Ml IV 06/19/19 14:59 PRN NR Nutrition/Malnutrition Assess - Dietary Evaluation Nutrition/Malnutrition Findings: Nutrition Notes Start: 06/15/19 1 7:35 Freq: Status: Active Protocol: Document 06/15/19 17:35 RM (Rec: 06/15/19 17:42 RM [id number]) Nutrition Notes Need for Assessment generated from: Low BMI Initial or Follow up Assessment Current Diagnosis COPD,Hypertension Other Pertinent Diagnosis Sacral PU, Hx ETOH abuse, Hx brain aneurysm Current Diet Cardiac Labs/Tests Reviewed Pertinent Medications Reviewed Height 5 ft 6 in Weight 49.89 kg [place] Body Weight (kg) 59.09 BMI 17.7 Subjective/Other Information sScreened for Low BMI. 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 Pt stated that she eats all of her meals here. Stated UBW is 110-120 lbs but unsure how long ago she weighed that. Noted temporal wasting. 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 No Is Patient Ambulatory and/or Out of Bed No REE-([facility]-confined to bed) 1290.228 Kcal/Kg value to use for calculation 36 Approximate Energy Requirements Using 1796 kcal/Kg Calculation Used for Recommendations Kcal/kg Additional Notes Protein Needs: 60-75g (1.2-1. 5g/kg) Fluid Needs: 1 ml/kcal Nutrition Intervention Change Diet Order: Continue current Add Supplement/Snack (indicate name/kcal Ensure Enlive Chocolate BID /protein ) Provides kCal: 700 Provides Protein (gm) 40 Goal #1 Continue to meet at least 75% of calorie and protein needs via PO and ONS intakes Goal #2 Wt gain/maintenance Anticipated Discharge Needs: Cardac diet Follow-Up By: 06/17/19 Additional Comments Follow for PO and ONS intakes
[2019-06-18] MEDS: PERCOCET 5/325 PO PRN ×2 (05:34→23:10)
[2019-06-18] MEDS: SYNTHROID PO SCH (05:34)
[2019-06-18] MEDS: LOVENOX SUB-Q SCH (12:28)
[2019-06-18] MEDS: PEPCID IV SCH ×2 (12:28→23:10)
--- NOTE | 2019-06-18 12:55 | Progress Note ---
Assessment and Plan Assessment and plan: Right hip fracture - The patient is consulted and did surgery yesterday - Doing well post operatively - PT/OT working with the patient - Pain control malnutrition - Nutrition consult Alcohol abuse - On [facility] protocol hypokalemia - replete - Check BMP in the morning Dementia - Supportive care DVT prophylaxis - SCDs Disposition - need evaluation for inpatient rehab. History Interval history: Patient was seen and evaluated this morning, Patient is c/o of right hip pain. patient is a poor historian. Hospitalist Physical - Physical exam Narrative exam: Not in cardiopulmonary distress. The patient appeared well nourished and normally developed. Vital signs as documented. Head exam is unremarkable. No scleral icterus . Neck is without jugular venous distension, thyromegaly, or carotid bruits. Lungs are clear to auscultation. Cardiac exam reveals regular rate and Rhythm. Abdominal exam reveals normal bowel sounds, no masses, no organomegaly and no aortic enlargement. Extremities decreased range of motion on the right leg, there is a cast on the right arm. 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 No focal weakness. - Constitutional Vitals: Temp Pulse Resp BP Pulse Ox 99.5 F 95 H 18 108/45 93 06/18/19 07:50 06/18/19 07:50 06/18/19 07:50 06/18/19 07:50 06/18/19 07:50 Results - Labs CBC & Chem 7: 06/17/19 03:54 06/17/19 03:54 Labs: Laboratory Last Values WBC 7.7 K/mm3 (4.5-11.0) 06/17/19 03:54 RBC 2.71 M/mm3 (3.65-5.03) L 06/17/19 03:54 Hgb 8.0 gm/dl (10.1-14.3) L 06/17/19 03:54 Hct 24.0 % (30.3-42.9) L 06/17/19 03:54 MCV 89 fl (79-97) 06/17/19 03:54 MCH 30 pg (28-32) 06/17/19 03:54 MCHC 34 % (30-34) 06/17/19 03:54 RDW 13.8 % (13.2-15.2) 06/17/19 03:54 Plt Count 390 K/mm3 (140-440) 06/17/19 03:54 Lymph % (Auto) 16.8 % (13.4-35.0) 06/17/19 03:54 [place] % (Auto) 8.1 % (0.0-7.3) H 06/17/19 03:54 Eos % (Auto) 2.8 % (0.0-4.3) 06/17/19 03:54 Baso % (Auto) 0.5 % (0.0-1.8) 06/17/19 03:54 Lymph # 1.3 K/mm3 (1.2-5.4) 06/17/19 03:54 [place] # 0.6 K/mm3 (0.0-0.8) 06/17/19 03:54 Eos # 0.2 K/mm3 (0.0-0.4) 06/17/19 03:54 Baso # 0.0 K/mm3 (0.0-0.1) 06/17/19 03:54 Seg Neutrophils % 71.8 % (40.0-70.0) H 06/17/19 03:54 Seg Neutrophils # 5.5 K/mm3 (1.8-7.7) 06/17/19 03:54 Sodium 140 mmol/L (137-145) 06/17/19 03:54 Potassium 4.3 mmol/L (3.6-5.0) 06/17/19 03:54 Chloride 105.3 mmol/L (98-107) 06/17/19 03:54 Carbon Dioxide 25 mmol/L (22-30) 06/17/19 03:54 14 mmol/L 06/17/19 03:54 BUN 8 mg/dL (7-17) 06/17/19 03:54 0.6 mg/dL (0.7-1.2) L 06/17/19 03:54 Estimated GFR > 60 ml/min 06/17/19 03:54 13 % 06/17/19 03:54 Glucose 110 mg/dL (65-100) H 06/17/19 03:54 5.1 % (4-6) 06/15/19 00:06 Calcium 8.1 mg/dL (8.4-10.2) L 06/17/19 03:54 Iron 20 ug/dL (37-170) L 06/15/19 00:06 TIBC 217 mcg/dL (250-450) L 06/15/19 00:06 % Saturation 9.22 % 06/15/19 00:06 176 mg/dl (192-382) L 06/15/19 00:06 0.60 mg/dL (0.1-1.2) 06/15/19 00:30 AST 25 units/L (5-40) 06/15/19 00:30 ALT 31 units/L (7-56) 06/15/19 00:30 96 units/L (35-129) 06/15/19 00:30 5.8 g/dL (6.3-8.2) L 06/15/19 00:30 2.8 g/dL (3.9-5) L 06/15/19 00:30 0.9 % 06/15/19 00:30 Vitamin B12 288.1 pg/mL (211-911) 06/15/19 00:06 TSH 0.018 mlU/mL (0.270-4.200) L 06/14/19 15:17 Shivani (Yellow) 06/14/19 00:30 Clear (Clear) 06/14/19 00:30 5.0 (5.0-7.0) 06/14/19 00:30 Ur Specific [place] 1.024 (1.003-1.030) 06/14/19 00:30 <15 mg/dl mg/dL (Negative) 06/14/19 00:30 50 mg/dL (Negative) 06/14/19 00:30 20 mg/dL (Negative) 06/14/19 00:30 Neg (Negative) 06/14/19 00:30 Neg (Negative) 06/14/19 00:30 Neg (Negative) 06/14/19 00:30 4.0 mg/dL (<2.0) 06/14/19 00:30 Ur Leukocyte Esterase Neg (Negative) 06/14/19 00:30 2.0 /HPF (0.0-6.0) 06/14/19 00:30 1.0 /HPF (0.0-6.0) 06/14/19 00:30 U Epithel Cells (Auto) 2.0 /HPF (0-13.0) 06/14/19 00:30 Presumptive negative 06/14/19 Unknown Presumptive negative 06/14/19 Unknown Ur Barbiturates Screen Presumptive negative 06/14/19 Unknown Ur Phencyclidine Scrn Presumptive negative 06/14/19 Unknown Ur Amphetamines Screen Presumptive negative 06/14/19 Unknown U Benzodiazepines Scrn Presumptive negative 06/14/19 Unknown Presumptive negative 06/14/19 Unknown U Marijuana (THC) Screen Presumptive negative 06/14/19 Unknown Disclamer 06/14/19 Unknown Plasma/Serum Alcohol < 0.01 % (0-0.07) 06/14/19 15:17 Blood Type A NEGATIVE 06/16/19 11:05 Antibody Screen Negative 06/16/19 11:05 Active Medications - Current Medications Current Medications: Generic Name Dose Route Start Last Admin Trade Name Freq PRN Reason Stop Dose Admin Acetaminophen 650 mg 06/14/19 23:29 Tylenol PO Q4H PRN Pain MILD(1-3)/Fever >100.5/MONTANO Albuterol 2.5 mg 06/17/19 06:40 Proventil IH Q4HRT PRN Shortness Of Breath Enoxaparin Sodium 40 mg 06/17/19 10:00 06/18/19 12:28 Lovenox SUB-Q 40 mg QDAY ROMAN Administration Famotidine 20 mg 06/15/19 10:00 06/18/19 12:28 Pepcid IV 20 mg BID ROMAN Administration Hydromorphone HCl 0.5 mg 06/14/19 23:29 06/15/19 21:41 Dilaudid IV 0.5 mg Q3H PRN Administration Pain , Severe (7-10) Sodium Chloride 1,000 mls @ 100 mls/hr 06/14/19 23:00 06/17/19 02:59 Nacl 0.9% 1000 Ml IV 100 mls/hr DIRECT ROMAN Administration Lactated Ringer's 1,000 mls @ 100 mls/hr 06/16/19 11:00 06/17/19 17:49 Lactated Ringers IV 100 mls/hr DIRECT ROMAN Administration Levothyroxine Sodium 75 mcg 06/15/19 14:10 06/18/19 05:34 Synthroid PO 75 mcg DAILY@0600 ROMAN Administration Lorazepam 1 mg 06/14/19 23:32 Ativan IV Q4H PRN Anxiety Morphine Sulfate 4 mg 06/16/19 14:28 Morphine IV Q4H PRN Pain , Severe (7-10) Ondansetron HCl 4 mg 06/14/19 23:29 06/16/19 14:53 Zofran IV 4 mg Q8H PRN Administration Nausea And Vomiting Oxycodone/Acetaminophen 1 tab 06/14/19 23:29 06/18/19 05:34 Percocet 5/325 PO 1 tab Q6H PRN Administration Pain, Moderate (4-6) Sodium Chloride 10 ml 06/15/19 10:00 06/17/19 22:29 Sodium Chloride Flush Syringe 10 Ml IV 10 ml BID ROMAN Administration Sodium Chloride 10 ml 06/14/19 23:29 Sodium Chloride Flush Syringe 10 Ml IV PRN PRN LINE FLUSH Sodium Chloride 10 ml 06/16/19 15:00 Sodium Chloride Flush Syringe 10 Ml IV 06/19/19 14:59 PRN NR Nutrition/Malnutrition Assess - Dietary Evaluation Nutrition/Malnutrition Findings: Nutrition Notes Start: 06/15/19 1 7:35 Freq: Status: Active Protocol: Document 06/17/19 21:16 RM (Rec: 06/17/19 21:18 RM [id number]) Nutrition Notes Initial or Follow up Reassessment Current Diagnosis COPD,Hypertension Other Pertinent Diagnosis Sacral PU, Hx ETOH abuse, Hx brain aneurysm Current Diet Regular Labs/Tests Reviewed Pertinent Medications Reviewed Height 5 ft 6 in Weight 49.89 kg [place] Body Weight (kg) 59.09 BMI 17.7 Subjective/Other Information Pt being cleaned by tech at time of visit. Per tech pt is eating all of her meals and drinking the ONS. Percent of energy/protein needs met: 100%/100% Burn Absent Trauma Absent #1 Nutrition Diagnosis Malnutrition Diagnosis Progress(for reassessment Continues documentation) Is patient on ventilator? No Is Patient Ambulatory and/or Out of Bed No REE-([facility]-confined to bed) 1290.228 Kcal/Kg value to use for calculation 36 Approximate Energy Requirements Using 1796 kcal/Kg Calculation Used for Recommendations Kcal/kg Additional Notes Protein Needs: 60-75g (1.2-1. 5g/kg) Fluid Needs: 1 ml/kcal Nutrition Intervention Change Diet Order: Continue current Add Supplement/Snack (indicate name/kcal Ensure Enlive Chocolate BID /protein ) Provides kCal: 700 Provides Protein (gm) 40 Goal #1 Continue to meet at least 75% of calorie and protein needs via PO and ONS intakes Anticipated Discharge Needs: Regular diet Follow-Up By: 06/24/19 Additional Comments Follow for PO and ONS intakes
[2019-06-18] MEDS: SODIUM CHLORIDE FLUSH SYRINGE 10 ML IV SCH (23:53)
[2019-06-19] MEDS: PERCOCET 5/325 PO PRN ×2 (05:58→18:33)
[2019-06-19] MEDS: SYNTHROID PO SCH (05:58)
[2019-06-19] MEDS: LOVENOX SUB-Q SCH (09:25)
[2019-06-19] MEDS: SODIUM CHLORIDE FLUSH SYRINGE 10 ML IV SCH ×3 (09:25→21:36)
[2019-06-19] MEDS: PEPCID IV SCH ×2 (09:26→21:34)
--- NOTE | 2019-06-19 16:27 | Progress Note ---
Assessment and Plan Assessment and plan: Right hip fracture - sp arthroplasty - Doing well post operatively - PT/OT working with the patient - Pain control malnutrition - Nutrition consult Alcohol abuse - On [facility] protocol hypokalemia - replete - Check BMP in the morning Dementia - Supportive care DVT prophylaxis - SCDs Disposition - need evaluation for inpatient rehab. History Interval history: Patient was seen and evaluated this morning, Patient is c/o of right hip pain. patient is a poor historian. Hospitalist Physical - Physical exam Narrative exam: Not in cardiopulmonary distress. The patient appeared well nourished and normally developed. Vital signs as documented. Head exam is unremarkable. No scleral icterus . Neck is without jugular venous distension, thyromegaly, or carotid bruits. Lungs are clear to auscultation. Cardiac exam reveals regular rate and Rhythm. Abdominal exam reveals normal bowel sounds, no masses, no organomegaly and no aortic enlargement. Extremities decreased range of motion on the right leg, there is a cast on the right arm. 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 No focal weakness. Hospitalist Physical - Constitutional Vitals: Temp Pulse Resp BP Pulse Ox 99.1 F 92 H 18 110/49 95 06/19/19 08:14 06/19/19 08:14 06/19/19 08:14 06/19/19 08:14 06/19/19 08:14 Results - Labs CBC & Chem 7: 06/17/19 03:54 06/17/19 03:54 Labs: Laboratory Last Values WBC 7.7 K/mm3 (4.5-11.0) 06/17/19 03:54 RBC 2.71 M/mm3 (3.65-5.03) L 06/17/19 03:54 Hgb 8.0 gm/dl (10.1-14.3) L 06/17/19 03:54 Hct 24.0 % (30.3-42.9) L 06/17/19 03:54 MCV 89 fl (79-97) 06/17/19 03:54 MCH 30 pg (28-32) 06/17/19 03:54 MCHC 34 % (30-34) 06/17/19 03:54 RDW 13.8 % (13.2-15.2) 06/17/19 03:54 Plt Count 390 K/mm3 (140-440) 06/17/19 03:54 Lymph % (Auto) 16.8 % (13.4-35.0) 06/17/19 03:54 [place] % (Auto) 8.1 % (0.0-7.3) H 06/17/19 03:54 Eos % (Auto) 2.8 % (0.0-4.3) 06/17/19 03:54 Baso % (Auto) 0.5 % (0.0-1.8) 06/17/19 03:54 Lymph # 1.3 K/mm3 (1.2-5.4) 06/17/19 03:54 [place] # 0.6 K/mm3 (0.0-0.8) 06/17/19 03:54 Eos # 0.2 K/mm3 (0.0-0.4) 06/17/19 03:54 Baso # 0.0 K/mm3 (0.0-0.1) 06/17/19 03:54 Seg Neutrophils % 71.8 % (40.0-70.0) H 06/17/19 03:54 Seg Neutrophils # 5.5 K/mm3 (1.8-7.7) 06/17/19 03:54 Sodium 140 mmol/L (137-145) 06/17/19 03:54 Potassium 4.3 mmol/L (3.6-5.0) 06/17/19 03:54 Chloride 105.3 mmol/L (98-107) 06/17/19 03:54 Carbon Dioxide 25 mmol/L (22-30) 06/17/19 03:54 14 mmol/L 06/17/19 03:54 BUN 8 mg/dL (7-17) 06/17/19 03:54 0.6 mg/dL (0.7-1.2) L 06/17/19 03:54 Estimated GFR > 60 ml/min 06/17/19 03:54 13 % 06/17/19 03:54 Glucose 110 mg/dL (65-100) H 06/17/19 03:54 5.1 % (4-6) 06/15/19 00:06 Calcium 8.1 mg/dL (8.4-10.2) L 06/17/19 03:54 Iron 20 ug/dL (37-170) L 06/15/19 00:06 TIBC 217 mcg/dL (250-450) L 06/15/19 00:06 % Saturation 9.22 % 06/15/19 00:06 176 mg/dl (192-382) L 06/15/19 00:06 0.60 mg/dL (0.1-1.2) 06/15/19 00:30 AST 25 units/L (5-40) 06/15/19 00:30 ALT 31 units/L (7-56) 06/15/19 00:30 96 units/L (35-129) 06/15/19 00:30 5.8 g/dL (6.3-8.2) L 06/15/19 00:30 2.8 g/dL (3.9-5) L 06/15/19 00:30 0.9 % 06/15/19 00:30 Vitamin B12 288.1 pg/mL (211-911) 06/15/19 00:06 RBC Folic Acid >1000 ng/mL (>280) 06/15/19 05:28 TSH 0.018 mlU/mL (0.270-4.200) L 06/14/19 15:17 Shivani (Yellow) 06/14/19 00:30 Clear (Clear) 06/14/19 00:30 5.0 (5.0-7.0) 06/14/19 00:30 Ur Specific [place] 1.024 (1.003-1.030) 06/14/19 00:30 <15 mg/dl mg/dL (Negative) 06/14/19 00:30 50 mg/dL (Negative) 06/14/19 00:30 20 mg/dL (Negative) 06/14/19 00:30 Neg (Negative) 06/14/19 00:30 Neg (Negative) 06/14/19 00:30 Neg (Negative) 06/14/19 00:30 4.0 mg/dL (<2.0) 06/14/19 00:30 Ur Leukocyte Esterase Neg (Negative) 06/14/19 00:30 2.0 /HPF (0.0-6.0) 06/14/19 00:30 1.0 /HPF (0.0-6.0) 06/14/19 00:30 U Epithel Cells (Auto) 2.0 /HPF (0-13.0) 06/14/19 00:30 Presumptive negative 06/14/19 Unknown Presumptive negative 06/14/19 Unknown Ur Barbiturates Screen Presumptive negative 06/14/19 Unknown Ur Phencyclidine Scrn Presumptive negative 06/14/19 Unknown Ur Amphetamines Screen Presumptive negative 06/14/19 Unknown U Benzodiazepines Scrn Presumptive negative 06/14/19 Unknown Presumptive negative 06/14/19 Unknown U Marijuana (THC) Screen Presumptive negative 06/14/19 Unknown Disclamer 06/14/19 Unknown Plasma/Serum Alcohol < 0.01 % (0-0.07) 06/14/19 15:17 Blood Type A NEGATIVE 06/16/19 11:05 Antibody Screen Negative 06/16/19 11:05 Active Medications - Current Medications Current Medications: Generic Name Dose Route Start Last Admin Trade Name Freq PRN Reason Stop Dose Admin Acetaminophen 650 mg 06/14/19 23:29 Tylenol PO Q4H PRN Pain MILD(1-3)/Fever >100.5/[place]ANO Albuterol 2.5 mg 06/17/19 06:40 Proventil IH Q4HRT PRN Shortness Of Breath Enoxaparin Sodium 40 mg 06/17/19 10:00 06/19/19 09:25 Lovenox SUB-Q 40 mg QDAY ROMAN Administration Famotidine 20 mg 06/15/19 10:00 06/19/19 09:26 Pepcid IV 20 mg BID ROMAN Administration Hydromorphone HCl 0.5 mg 06/14/19 23:29 06/15/19 21:41 Dilaudid IV 0.5 mg Q3H PRN Administration Pain , Severe (7-10) Sodium Chloride 1,000 mls @ 100 mls/hr 06/14/19 23:00 06/17/19 02:59 Nacl 0.9% 1000 Ml IV 100 mls/hr DIRECT ROMAN Administration Lactated Ringer's 1,000 mls @ 100 mls/hr 06/16/19 11:00 06/17/19 17:49 Lactated Ringers IV 100 mls/hr DIRECT ROMAN Administration Levothyroxine Sodium 75 mcg 06/15/19 14:10 06/19/19 05:58 Synthroid PO 75 mcg DAILY@0600 ROMAN Administration Lorazepam 1 mg 06/14/19 23:32 Ativan IV Q4H PRN Anxiety Morphine Sulfate 4 mg 06/16/19 14:28 Morphine IV Q4H PRN Pain , Severe (7-10) Ondansetron HCl 4 mg 06/14/19 23:29 06/16/19 14:53 Zofran IV 4 mg Q8H PRN Administration Nausea And Vomiting Oxycodone/Acetaminophen 1 tab 06/14/19 23:29 06/19/19 05:58 Percocet 5/325 PO 1 tab Q6H PRN Administration Pain, Moderate (4-6) Sodium Chloride 10 ml 06/15/19 10:00 06/19/19 09:26 Sodium Chloride Flush Syringe 10 Ml IV 10 ml BID ROMAN Administration Sodium Chloride 10 ml 06/14/19 23:29 Sodium Chloride Flush Syringe 10 Ml IV PRN PRN LINE FLUSH Nutrition/Malnutrition Assess - Dietary Evaluation Nutrition/Malnutrition Findings: Nutrition Notes Start: 06/15/19 17:35 Freq: Status: Active Protocol: Document 06/17/19 21:16 RM (Rec: 06/17/19 21:18 RM [id number]) Nutrition Notes Initial or Follow up Reassessment Current Diagnosis COPD,Hypertension Other Pertinent Diagnosis Sacral PU, Hx ETOH abuse, Hx brain aneurysm Current Diet Regular Labs/Tests Reviewed Pertinent Medications Reviewed Height 5 ft 6 in Weight 49.89 kg [place] Body Weight (kg) 59.09 BMI 17.7 Subjective/Other Information Pt being cleaned by tech at time of visit. Per tech pt is eating all of her meals and drinking the ONS. Percent of energy/protein needs met: 100%/100% Burn Absent Trauma Absent #1 Nutrition Diagnosis Malnutrition Diagnosis Progress(for reassessment Continues documentation) Is patient on ventilator? No Is Patient Ambulatory and/or Out of Bed No REE-([facility]-confined to bed) 1290.228 Kcal/Kg value to use for calculation 36 Approximate Energy Requirements Using 1796 kcal/Kg Calculation Used for Recommendations Kcal/kg Additional Notes Protein Needs: 60-75g (1.2-1. 5g/kg) Fluid Needs: 1 ml/kcal Nutrition Intervention Change Diet Order: Continue current Add Supplement/Snack (indicate name/kcal Ensure Enlive Chocolate BID /protein ) Provides kCal: 700 Provides Protein (gm) 40 Goal #1 Continue to meet at least 75% of calorie and protein needs via PO and ONS intakes Anticipated Discharge Needs: Regular diet Follow-Up By: 06/24/19 Additional Comments Follow for PO and ONS intakes
[2019-06-20] MEDS: PERCOCET 5/325 PO PRN ×2 (04:56→10:21)
[2019-06-20] MEDS: SYNTHROID PO SCH (05:56)
[2019-06-20] MEDS: LOVENOX SUB-Q SCH (09:26)
[2019-06-20] MEDS: PEPCID IV SCH (09:26)
[2019-06-20] MEDS: SODIUM CHLORIDE FLUSH SYRINGE 10 ML IV SCH (09:26)
--- NOTE | 2019-06-20 14:45 | Progress Note ---
Assessment and Plan Assessment and plan: Right hip fracture - sp arthroplasty - Doing well post operatively - PT/OT working with the patient - Pain control malnutrition - Nutrition consult Alcohol abuse - On [facility] protocol hypokalemia - replete - Check BMP in the morning Dementia - Supportive care DVT prophylaxis - SCDs Disposition awaiting rehab placement History Interval history: Patient was seen and evaluated this morning, Patient is c/o of right hip pain. patient is a poor historian. Hospitalist Physical - Physical exam Narrative exam: Not in cardiopulmonary distress. The patient appeared well nourished and normally developed. Vital signs as documented. Head exam is unremarkable. No scleral icterus . Neck is without jugular venous distension, thyromegaly, or carotid bruits. Lungs are clear to auscultation. Cardiac exam reveals regular rate and Rhythm. Abdominal exam reveals normal bowel sounds, no masses, no organomegaly and no aortic enlargement. Extremities decreased range of motion on the right leg, there is a cast on the right arm. 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 No focal weakness. Hospitalist Physical - Constitutional Vitals: Temp Pulse Resp BP Pulse Ox 98.0 F 86 20 110/48 97 06/20/19 12:41 06/20/19 12:41 06/20/19 12:41 06/20/19 12:41 06/20/19 12:41 Results - Labs CBC & Chem 7: 06/17/19 03:54 06/17/19 03:54 Labs: Laboratory Last Values WBC 7.7 K/mm3 (4.5-11.0) 06/17/19 03:54 RBC 2.71 M/mm3 (3.65-5.03) L 06/17/19 03:54 Hgb 8.0 gm/dl (10.1-14.3) L 06/17/19 03:54 Hct 24.0 % (30.3-42.9) L 06/17/19 03:54 MCV 89 fl (79-97) 06/17/19 03:54 MCH 30 pg (28-32) 06/17/19 03:54 MCHC 34 % (30-34) 06/17/19 03:54 RDW 13.8 % (13.2-15.2) 06/17/19 03:54 Plt Count 390 K/mm3 (140-440) 06/17/19 03:54 Lymph % (Auto) 16.8 % (13.4-35.0) 06/17/19 03:54 [place] % (Auto) 8.1 % (0.0-7.3) H 06/17/19 03:54 Eos % (Auto) 2.8 % (0.0-4.3) 06/17/19 03:54 Baso % (Auto) 0.5 % (0.0-1.8) 06/17/19 03:54 Lymph # 1.3 K/mm3 (1.2-5.4) 06/17/19 03:54 [place] # 0.6 K/mm3 (0.0-0.8) 06/17/19 03:54 Eos # 0.2 K/mm3 (0.0-0.4) 06/17/19 03:54 Baso # 0.0 K/mm3 (0.0-0.1) 06/17/19 03:54 Seg Neutrophils % 71.8 % (40.0-70.0) H 06/17/19 03:54 Seg Neutrophils # 5.5 K/mm3 (1.8-7.7) 06/17/19 03:54 Sodium 140 mmol/L (137-145) 06/17/19 03:54 Potassium 4.3 mmol/L (3.6-5.0) 06/17/19 03:54 Chloride 105.3 mmol/L (98-107) 06/17/19 03:54 Carbon Dioxide 25 mmol/L (22-30) 06/17/19 03:54 14 mmol/L 06/17/19 03:54 BUN 8 mg/dL (7-17) 06/17/19 03:54 0.6 mg/dL (0.7-1.2) L 06/17/19 03:54 Estimated GFR > 60 ml/min 06/17/19 03:54 13 % 06/17/19 03:54 Glucose 110 mg/dL (65-100) H 06/17/19 03:54 5.1 % (4-6) 06/15/19 00:06 Calcium 8.1 mg/dL (8.4-10.2) L 06/17/19 03:54 Iron 20 ug/dL (37-170) L 06/15/19 00:06 TIBC 217 mcg/dL (250-450) L 06/15/19 00:06 % Saturation 9.22 % 06/15/19 00:06 176 mg/dl (192-382) L 06/15/19 00:06 0.60 mg/dL (0.1-1.2) 06/15/19 00:30 AST 25 units/L (5-40) 06/15/19 00:30 ALT 31 units/L (7-56) 06/15/19 00:30 96 units/L (35-129) 06/15/19 00:30 5.8 g/dL (6.3-8.2) L 06/15/19 00:30 2.8 g/dL (3.9-5) L 06/15/19 00:30 0.9 % 06/15/19 00:30 Vitamin B12 288.1 pg/mL (211-911) 06/15/19 00:06 RBC Folic Acid >1000 ng/mL (>280) 06/15/19 05:28 TSH 0.018 mlU/mL (0.270-4.200) L 06/14/19 15:17 Shivani (Yellow) 06/14/19 00:30 Clear (Clear) 06/14/19 00:30 5.0 (5.0-7.0) 06/14/19 00:30 Ur Specific [place] 1.024 (1.003-1.030) 06/14/19 00:30 <15 mg/dl mg/dL (Negative) 06/14/19 00:30 50 mg/dL (Negative) 06/14/19 00:30 20 mg/dL (Negative) 06/14/19 00:30 Neg (Negative) 06/14/19 00:30 Neg (Negative) 06/14/19 00:30 Neg (Negative) 06/14/19 00:30 4.0 mg/dL (<2.0) 06/14/19 00:30 Ur Leukocyte Esterase Neg (Negative) 06/14/19 00:30 2.0 /HPF (0.0-6.0) 06/14/19 00:30 1.0 /HPF (0.0-6.0) 06/14/19 00:30 U Epithel Cells (Auto) 2.0 /HPF (0-13.0) 06/14/19 00:30 Presumptive negative 06/14/19 Unknown Presumptive negative 06/14/19 Unknown Ur Barbiturates Screen Presumptive negative 06/14/19 Unknown Ur Phencyclidine Scrn Presumptive negative 06/14/19 Unknown Ur Amphetamines Screen Presumptive negative 06/14/19 Unknown U Benzodiazepines Scrn Presumptive negative 06/14/19 Unknown Presumptive negative 06/14/19 Unknown U Marijuana (THC) Screen Presumptive negative 06/14/19 Unknown Disclamer 06/14/19 Unknown Plasma/Serum Alcohol < 0.01 % (0-0.07) 06/14/19 15:17 Blood Type A NEGATIVE 06/16/19 11:05 Antibody Screen Negative 06/16/19 11:05 Active Medications - Current Medications Current Medications: Generic Name Dose Route Start Last Admin Trade Name Freq PRN Reason Stop Dose Admin Acetaminophen 650 mg 06/14/19 23:29 Tylenol PO Q4H PRN Pain MILD(1-3)/Fever >100.5/M[place]ANO Albuterol 2.5 mg 06/17/19 06:40 Proventil IH Q4HRT PRN Shortness Of Breath Enoxaparin Sodium 40 mg 06/17/19 10:00 06/20/19 09:26 Lovenox SUB-Q 40 mg QDAY ROMAN Administration Famotidine 20 mg 06/20/19 22:00 Pepcid PO BID ROMAN Hydromorphone HCl 0.5 mg 06/14/19 23:29 06/15/19 21:41 Dilaudid IV 0.5 mg Q3H PRN Administration Pain , Severe (7-10) Sodium Chloride 1,000 mls @ 100 mls/hr 06/14/19 23:00 06/17/19 02:59 Nacl 0.9% 1000 Ml IV 100 mls/hr DIRECT ROMAN Administration Lactated Ringer's 1,000 mls @ 100 mls/hr 06/16/19 11:00 06/17/19 17:49 Lactated Ringers IV 100 mls/hr DIRECT ROMAN Administration Levothyroxine Sodium 75 mcg 06/15/19 14:10 06/20/19 05:56 Synthroid PO 75 mcg DAILY@0600 ROMAN Administration Lorazepam 1 mg 06/14/19 23:32 Ativan IV Q4H PRN Anxiety Morphine Sulfate 4 mg 06/16/19 14:28 Morphine IV Q4H PRN Pain , Severe (7-10) Ondansetron HCl 4 mg 06/14/19 23:29 06/16/19 14:53 Zofran IV 4 mg Q8H PRN Administration Nausea And Vomiting Oxycodone/Acetaminophen 1 tab 06/14/19 23:29 06/20/19 10:21 Percocet 5/325 PO 1 tab Q6H PRN Administration Pain, Moderate (4-6) Sodium Chloride 10 ml 06/15/19 10:00 06/20/19 09:26 Sodium Chloride Flush Syringe 10 Ml IV 10 ml BID ROMAN Administration Sodium Chloride 10 ml 06/14/19 23:29 Sodium Chloride Flush Syringe 10 Ml IV PRN PRN LINE FLUSH Nutrition/Malnutrition Assess - Dietary Evaluation Nutrition/Malnutrition Findings: Nutrition Notes Start: 06/15/19 17:35 Freq: Status: Active Protocol: Document 06/17/19 21:16 RM (Rec: 06/17/19 21:18 RM [id number]) Nutrition Notes Initial or Follow up Reassessment Current Diagnosis COPD,Hypertension Other Pertinent Diagnosis Sacral PU, Hx ETOH abuse, Hx brain aneurysm Current Diet Regular Labs/Tests Reviewed Pertinent Medications Reviewed Height 5 ft 6 in Weight 49.89 kg Eads Body Weight (kg) 59.09 BMI 17.7 Subjective/Other Information Pt being cleaned by tech at time of visit. Per tech pt is eating all of her meals and drinking the ONS. Percent of energy/protein needs met: 100%/100% Burn Absent Trauma Absent #1 Nutrition Diagnosis Malnutrition Diagnosis Progress(for reassessment Continues documentation) Is patient on ventilator? No Is Patient Ambulatory and/or Out of Bed No REE-([facility]-confined to bed) 1290.228 Kcal/Kg value to use for calculation 36 Approximate Energy Requirements Using 1796 kcal/Kg Calculation Used for Recommendations Kcal/kg Additional Notes Protein Needs: 60-75g (1.2-1. 5g/kg) Fluid Needs: 1 ml/kcal Nutrition Intervention Change Diet Order: Continue current Add Supplement/Snack (indicate name/kcal Ensure Enlive Chocolate BID /protein ) Provides kCal: 700 Provides Protein (gm) 40 Goal #1 Continue to meet at least 75% of calorie and protein needs via PO and ONS intakes Anticipated Discharge Needs: Regular diet Follow-Up By: 06/24/19 Additional Comments Follow for PO and ONS intakes
--- NOTE | 2019-06-20 15:45 | Discharge Summary ---
Providers - Providers Date of Admission: 06/14/19 17:56 Attending physician: LUÍS OLIVIA MD 06/14/19 17:10 Consult to Physician [CONS] Routine Comment: Consulting Provider: LAUREEN GOMEZ Physician Instructions: Reason For Exam: right intertrochanteric fracture 06/16/19 14:30 Physical Therapy Evaluation and Treat [CONS] Routine Comment: Reason For Exam: post op evaluation Weight bearing status?: Partial wt bearing Assistive devices?: Yes If so list: Walker 06/17/19 16:05 Occupational Therapy Evaluate and Treat [CONS] Routine Comment: Reason For Exam: S/P r arm fracture, weakness Primary care physician: MENTAL HEALTH DIRECTOR Hospitalization Condition: Fair Hospital course: Right hip fracture - sp arthroplasty - Doing well post operatively - PT/OT working with the patient - Pain control malnutrition - Nutrition consult Alcohol abuse - On CIRI protocol hypokalemia - replete - Check BMP in the morning Dementia - Supportive care DVT prophylaxis - SCDs Disposition awaiting rehab placement Disposition: [id number] HOME UNDER HOME [facility] Time spent for discharge: 33 mins Core Measure Documentation - Palliative Care Palliative Care/ Comfort Measures: Not Applicable - Core Measures Any of the following diagnoses?: none Exam - Constitutional Vitals: Temp Pulse Resp BP Pulse Ox 98.0 F 86 20 110/48 97 06/20/19 12:41 06/20/19 12:41 06/20/19 12:41 06/20/19 12:41 06/20/19 12:41 General appearance: Present: no acute distress, well-nourished - EENT Eyes: Present: PERRL ENT: hearing intact, clear oral mucosa - Neck Neck: Present: supple, normal ROM - Respiratory Respiratory effort: normal Respiratory: bilateral: CTA - Cardiovascular Heart Sounds: Present: S1 & S2. Absent: rub, click - Extremities Extremities: pulses symmetrical, No edema Peripheral Pulses: within normal limits - Abdominal General gastrointestinal: Present: soft, non-tender, non-distended, normal bowel sounds Female genitourinary: Present: normal - Integumentary Integumentary: Present: clear, warm, dry - Musculoskeletal Musculoskeletal: gait normal, strength equal bilaterally - Psychiatric Psychiatric: appropriate mood/affect, intact judgment & insight - Neurologic Neurologic: CNII-XII intact, moves all extremities Plan Follow up with: PRIMARY CAREMD [Primary Care Provider] - 3-5 Days Prescriptions: oxyCODONE /ACETAMINOPHEN [Percocet 5/325 mg] 1 tab PO Q6H PRN #14 tablet PRN Reason: Pain, Moderate (4-6)
[2019-06-20 16:55] VITALS: BP 114/52
--- NOTE | 2019-06-20 17:13 | Progress Note ---
Assessment and Plan Status post IM nail right hip fracture postop day 4, patient is also status post ORIF right distal humerus postop day 11 Recommendations - continue physical therapy observation patient will more likely require nonweightbearing for about 4 weeks to allow for healing at both the elbow and hip areas Subjective Date of service: 06/20/19 Interval history: No complaints noted from the patient Objective Vital signs: Vital Signs - 12hr 06/20/19 06/20/19 06/20/19 07:02 12:41 16:00 Temperature 97.9 F 98.0 F 98.4 F Pulse Rate 84 86 89 Respiratory 20 20 18 Rate Blood Pressure 108/44 Blood Pressure 110/48 114/52 [Left] O2 Sat by Pulse 96 97 94 Oximetry Narrative Exam: PHYSICAL examination today the long-arm splint on the right upper extremity was removed with a wound was inspected there is no signs of infection and there is no drainage noted there is moderate swelling good capillary refill in all digits right hand At the patient's right hip postoperative dressings were intact no sign of infection distal neurovascular status intact - Labs CBC & BMP: 06/17/19 03:54 06/17/19 03:54
[2019-06-20] MEDS ORDERED: PEPCID PO SCH (22:00)
== END 2019-06-20 17:36 | DRG 480 ==
LOC: ED 13:01 → 3B-SURG 17:56
PROVIDERS: ADMIT Internal Medicine; ATTEND Internal Medicine
PROC: 0QS636Z Reposition Right Upper Femur with Intramedullary Internal Fixation Device, Percutaneous Approach (ICD-10-PCS; principal; 2019-06-16)
DX: S72.141A Displaced intertrochanteric fracture of right femur, initial encounter for closed fracture (principal); E43 Unspecified severe protein-calorie malnutrition; Z68.1 Body mass index [BMI] 19.9 or less, adult; F17.200 Nicotine dependence, unspecified, uncomplicated; J44.9 Chronic obstructive pulmonary disease, unspecified; E03.9 Hypothyroidism, unspecified; E87.6 Hypokalemia; D64.9 Anemia, unspecified; W18.39XA Other fall on same level, initial encounter; I10 Essential (primary) hypertension; F03.90 Unspecified dementia, unspecified severity, without behavioral disturbance, psychotic disturbance, mood disturbance, and anxiety; F10.20 Alcohol dependence, uncomplicated; Z79.899 Other long term (current) drug therapy; Y93.89 Activity, other specified; Y92.89 Other specified places as the place of occurrence of the external cause; Y99.8 Other external cause status; Z82.49 Family history of ischemic heart disease and other diseases of the circulatory system
CPT/HCPCS: 36415; 80048; 80053; 80307; 80320; 81001; 82607; 82747; 83036; 83550; 84443; 85014; 85018; 85025; 86850; 86900; 86901; 94640; 94644; 99406; G0378; C1713; C1769; G0480; J1170; J1650; J1885; J2250; J2270; J2370; J2405; J2704; J3010; J3370; J7030; J7120

== ENCOUNTER 2019-06-20 16:28 | Inpatient (IN) | payer MEDICARE ==
[2019-06-20] MEDS ORDERED: ZOFRAN ODT PO PRN (16:49)
[2019-06-20] MEDS ORDERED: PROVENTIL IH PRN (16:49)
[2019-06-20] MEDS ORDERED: TYLENOL PO PRN (16:49)
--- NOTE | 2019-06-20 18:03 | History and Physical Report ---
History of Present Illness Date: 06/20/19 Date of admission: 06/20/2019 Chief Complaint: R hip fracture History of present illness: 63-year-old female who was recently discharged after a right humerus fracture and presented back to the ER one day later with pain in the right hip. X-ray showed a right intertrochanteric hip fracture. Ortho was consulted and she was taken for surgery and received an IM nail. She was placed on [facility] protocol for alcohol abuse. She is anemic and this appears to be a combination of both chronic disease as well as postoperative. Electrolytes were monitored and replaced as needed. She does have cognitive issues which may be related to either dementia and or alcohol abuse. On exam patient appears to be depressed and is currently refusing further treatment. Does have a history of bipolar disorder noted in the record without any treatment apparently. We'll attempt to determine what medications she's been on in the past and her restart medications as needed. Also history of EtOH dependence which she has downplayed. After the patient was medically stabilized she was transferred for further rehabilitation. All available medical records have been reviewed. Plan of care was discussed with patient. Past History Past Medical History: anemia, hypothyroidism, other (bipolar disorder, malnutrition, EtOH dependence, nicotine dependence) Past Surgical History: Other (brain aneurysm repair, ORIF right distal humerus) Social history: Lives alone, smoking, alcohol abuse, full code. denies: prescription drug abuse Family history: diabetes, hypertension Medications and Allergies Allergies Allergy/AdvReac Type Severity Reaction Status Date / Time Penicillins Allergy Unknown Verified 03/19/15 11:54 Sulfa (Sulfonamide Allergy Unknown Verified 03/19/15 11:54 Antibiotics) Home Medications Medication Instructions Recorded Confirmed Last Taken Type Levothyroxine Sodium [Unithroid] 100 mcg PO DAILY 03/21/15 06/14/19 Unknown History Ibuprofen [Motrin 600 MG tab] 600 mg PO Q6HR #20 tablet 03/22/15 06/14/19 Unkn own Rx oxyCODONE /ACETAMINOPHEN [Percocet 1 tab PO Q6H PRN #14 tablet 06/20/19 Unknown Rx 5/325 mg] Active Meds: Active Medications Acetaminophen (Tylenol) 650 mg PO Q6H PRN PRN Reason: Pain, Mild (1-3) Albuterol (Proventil) 2.5 mg IH Q4HRT PRN PRN Reason: Shortness Of Breath Enoxaparin Sodium (Lovenox) 40 mg SUB-Q QDAY [facility] Famotidine (Pepcid) 20 mg PO BID [facility] Levothyroxine Sodium (Synthroid) 75 mcg PO DAILY@0600 [facility] Lorazepam (Ativan) 0.5 mg PO Q8HR PRN PRN Reason: Agitation Ondansetron HCl (Zofran Odt) 4 mg PO Q8H PRN PRN Reason: Nausea And Vomiting Oxycodone HCl (Roxicodone) 10 mg PO Q6H PRN PRN Reason: Pain , Severe (7-10) Oxycodone HCl (Roxicodone) 5 mg PO Q6H PRN PRN Reason: Pain, Moderate (4-6) Review of Systems All systems: negative (ROS negative for 12 systems except as noted below with pertinent positives and negatives.) Constitutional: fatigue, weakness Ears, nose, mouth and throat: no decreased hearing, no headache Cardiovascular: no chest pain, no palpitations, no rapid/irregular heart beat, no edema Respiratory: no cough, no cough with sputum, no dyspnea on exertion Gastrointestinal: no abdominal pain, no nausea, no vomiting, no diarrhea, no constipation Musculoskeletal: hot joints (right elbow warm), limitation of motion (right upper extremity), gait dysfunction, fractures (right upper extremity and right hip) Integumentary: wounds, no rash, no redness Neurological: confusion, no head injury Psychiatric: depression Exam - Exam Narrative exam: MUSCULOSKELETAL SPECIALTY EXAM CONSTITUTIONAL: Well developed, well nourished, appropriately groomed LYMPHATIC: No appreciable abnormalities palpable in neck EENT: Visual cali full to confrontation. EOMI. Oropharynx clear. Hearing intact to soft voice RESPIRATORY: Clear to auscultation bilaterally, no increased work of breathing CARDIOVASCULAR: Regular Rate/ Rhythm, no swelling, edema or tenderness in BUE or BLE. Pulses palpable in all extremities. All extremities warm. GI: + bowel sounds, soft, NTTP, nondistended. INTEGUMENTARY: Wound on right upper extremity with bruised digits and surgical wound on right lower extremity otherwise, Normal, no lesion, rash, masses or bruising noted in extremities. MUSCULOSKELETAL: LUE and LLE normal without defect, crepitus, subluxation, effusion, arthritic changes or TTP. Right upper extremity with fracture, wound. Right lower extremity with hip fracture has been repaired, wound. LUE 4+/5, good ROM, with normal tone. Right upper extremity decreased range of motion with inability to test strength due to fracture. LLE 4+/5 good ROM, with normal tone. Right lower extremity decreased range of motion due to pain, tolerates some weightbearing with pain. Less than 3/5. NEURO: CN 2-12 grossly intact. Sensation intact in all extremities. Reflexes 2+ on the left at biceps, brachioradialis and patella, not tested on the right due to fractures and pain at patient request. No clonus at ankles. Coordination intact in LUE. No tremor noted in 4 extremities. POSTURE and GAIT: Sitting posture good. Balance appears reasonable. Gait deferred until seen with therapy. PSYCH: Alert, orientated x3, affect appears flattened. Insight appears intact so far, will monitor. Assessment and Plan Assessment and plan: Patient was assessed and evaluated for Acute Inpatient Rehab Unit. Due to the patients above-mentioned medical complexity, along with decreased functional mobility and self care, this patient continues to require and be appropriate for a comprehensive, multidisciplinary [id number] rehabilitation program. These needs cannot be met in an outpatient or other less intensive setting. The patient would continue to benefit from skilled therapy intervention for at least 3 hours per day, five days a week, with techniques specific to the needs of the patient to improve function, activities of daily living, and reintegration into the community. The patient continues to require: -- OT to improve ROM, self-care, and learn use of adaptive equipment -- PT to improve strength and balance, functional transfers, and ambulation with energy conservation techniques to improve functional mobility -- 24 hour RN to ensure and prevent skin breakdown, promote progressive independence while ensuring safety, ensure education regarding medications, and incorporation of the rehabilitation at the bedside -- 24 hour Rn Mds to coordinate this interdisciplinary program, and to manage/prevent complications as a result of the patients medical comorbidities. -Plan of care by day 4 -Weekly team conferences With such a program, there is a reasonable certainty that the goals individualized for this patient can be achieved within the specified length of stay. Right hip fracture: Continue wound care, weightbearing as tolerated, DVT prophylaxis. Pain medications have been adjusted for preparation to improve increase weightbearing activities. Monitor for any signs of injury and or possible infection. Right humerus fracture: Underwent ORIF on 06/09/2019. Continue to monitor for any signs of infection (reported dog bite) and or signs of DVT. Full weightbearing in this extremity. Hypothyroidism: Continue medications monitor Bipolar disorder: Patient seems depressed but is stable at this current time. We will attempt to find out what home medications were last being used and may order psychiatric evaluation pending results of further conversation. Alcohol abuse: Restart thiamine and folic acid along with multivitamin. Patient should be out of danger for withdrawal but will monitor for any signs or symptoms of withdrawal/DTs. Z73.6 ADL dysfunction: OT will work on improving ability to perform ADLs (including assistive devices) to increase independence and decrease caregiver burden and improve functional transfers and mobility training. R26.2 Difficulty walking: PT will work on gait training and proper use of assistive devices and advance as appropriate to use of stairs and outside ambulation on uneven surfaces. R26.81 Unsteadiness on feet: PT will work on improving static and dynamic sitting and standing balance as well as proper use of assistive devices to decrease risk of falls. R26.89 Abnormality of gait: PT will work to improve safety and efficiency of gait through neuromotor training and gait training along with instruction on proper use of assistive devices. M62.81 Muscle weakness: PT & OT will work on strengthening exercises to improve functional strength including mixture of closed and open kinetic chain exercises. R53.81 Debility: PT & OT will work on improving overall functional status to improve participation with ADLs, mobility and social involvement. R53.83 Fatigue: PT & OT will work on improving endurance through aerobic exercises and therapeutic activity while monitoring patients tolerance for activity and vital signs as needed. DVT ppx: Lovenox Pain: Continue physical modalities in therapy and pain medications as needed to achieve functional pain control. Medications adjusted for pain control levels considering increased weightbearing with therapy Sleep: Monitor and address as needed. Bowel: Monitor and address as needed. When necessary medications made available Appetite: Monitor and address as needed. Discharge planning: Pending therapy progress and care plan meeting. Will continue discussion with therapy team, SW, patient and family. Restrictions/ Precautions: Falls WB status: Weightbearing as tolerated right lower extremity Functional Hx: ADLs: Independent Cognition: Independent Mobility: No AD Barriers to Discharge: Decreased mobility and ability to perform self care, balance deficits, weakness Estimated Length of Stay: 14-18 days Discharge Destination: Home with family POST ADMISSION PHYSICIAN EVALUATION I have examined the patient and find that functional status, medical condition and appropriateness for IRF admission are essentially unchanged from those described in the preadmission screening. Will monitor for worsening surgical site infection or complications, DVT/PE, bowel and bladder complications and complications due to alcohol abuse, anemia, bipolar disorder and electrolyte abnormalities. Will attempt to avoid occurrence of these issues or treat them if they present themselves.
[2019-06-20] MEDS ORDERED: DULCOLAX PR PRN (18:32)
[2019-06-20] MEDS ORDERED: MIRALAX 3350 PO PRN (18:32)
[2019-06-20] MEDS: ROXICODONE PO PRN (20:02)
[2019-06-20] MEDS: ATIVAN PO PRN (20:03)
[2019-06-20] MEDS: PEPCID PO SCH (21:17)
[2019-06-20] MEDS: FEOSOL PO SCH (21:17)
[2019-06-21 05:02] LABS: Hematocrit 24.1 % (30.3-42.9); Mean Corpuscular HGB Conc 33 % (30-34); Mean Corpuscular Volume 87 fl (79-97); Platelet Count 629 K/mm3 (140-440); Red Blood Count 2.76 M/mm3 (3.65-5.03)
[2019-06-21] MEDS: SYNTHROID PO SCH (05:26)
[2019-06-21] MEDS: VITAMIN C PO SCH ×3 (05:28→21:05)
[2019-06-21 07:42] LABS: Alanine Aminotransferase 61 units/L (7-56); Albumin 3.1 g/dL (3.9-5)
[2019-06-21 08:14] LABS: BUN/Creatinine Ratio 42; Blood Urea Nitrogen 21 mg/dL (7-17); Calcium 8.8 mg/dL (8.4-10.2); Hemolysis Index 0
[2019-06-21] MEDS: FOLVITE PO SCH ×2 (08:29→09:11)
[2019-06-21] MEDS: PEPCID PO SCH ×2 (08:29→21:05)
[2019-06-21] MEDS: FEOSOL PO SCH ×2 (08:29→21:05)
[2019-06-21] MEDS: VITAMIN B-12 PO SCH ×2 (08:29→09:11)
[2019-06-21] MEDS: LOVENOX SUB-Q SCH (08:30)
[2019-06-21] MEDS: VITAMIN B-1 PO SCH ×2 (08:30→09:11)
[2019-06-21] MEDS: ROXICODONE PO PRN ×2 (08:37→21:04)
[2019-06-21 08:41] LABS: Band Neutrophils # (Manual) 0.2 K/mm3; Basophils % (Manual) 0 % (0.0-1.8); Hypochromasia 1+; Myelocytes # (Manual) 0.1 K/mm3; Platelet Estimate Consistent w Auto; Total Cells Counted 100
--- NOTE | 2019-06-21 09:30 | Progress Note ---
Subjective Date of service: 06/21/19 Principal diagnosis: R hip fracture Interval history: 63-year-old female who was recently discharged after a right humerus fracture and presented back to the ER one day later with pain in the right hip. X-ray showed a right intertrochanteric hip fracture. Ortho was consulted and she was taken for surgery and received an IM nail. She was placed on [facility] protocol for alcohol abuse. She is anemic and this appears to be a combination of both chronic disease as well as postoperative. Electrolytes were monitored and replaced as needed. She does have cognitive issues which may be related to either dementia and or alcohol abuse. On exam patient appears to be depressed and is currently refusing further treatment. Does have a history of bipolar disorder noted in the record without any treatment apparently. We'll attempt to determine what medications she's been on in the past and her restart medications as needed. Also history of EtOH dependence which she has downplayed. Patient is participating in therapy, states she did not sleep well last night. Wants to go back to bed. No reason for inability to sleep, may be depression related. Will start low dose trazodone and monitor. Requires encouragement but can make progress. Taking rest breaks as needed. -BM. Denies palpitations, dyspnea, cough, N/V. Pain in RLE better with medications. Discussed depression. She denies any manic episodes or diagnosis of bipolar. States she has been diagnosed with depression and was previously treated with zoloft and counseling. She is agreeable to restarting zoloft. BUN/Cr elevated, will give 1L NS today after therapy. Poor overall nutrition. Will add supplement. RUE wound healing well. Continue to keep dressed and monitor. Discussed in team conference. Today is first day of therapy. Continue to monitor. All records, vitals, labs and medications were reviewed. No other issues per patient, nursing or therapy. Objective - Exam Narrative Exam: MUSCULOSKELETAL SPECIALTY EXAM CONSTITUTIONAL: Well developed, well nourished, appropriately groomed EENT: EOMI. Hearing intact to soft voice RESPIRATORY: Clear to auscultation bilaterally, no increased work of breathing CARDIOVASCULAR: Regular Rate/ Rhythm, no swelling, edema or tenderness in BUE or BLE. All ext remities warm. GI: + bowel sounds, soft, NTTP, nondistended. INTEGUMENTARY: Wound on right upper extremity with bruised digits and surgical wound on right lower extremity otherwise, Normal, no lesion, rash, masses or bruising noted in extremities. MUSCULOSKELETAL: LUE and LLE normal without defect, crepitus, subluxation, effusion, arthritic changes or TTP. Right upper extremity with fracture s/p ORIF, wound. Right lower extremity with hip fracture has been repaired, wound. LUE 4+/5, good ROM, with normal tone. Right upper extremity decreased range of motion with inability to test strength due to fracture. LLE 4+/5 good ROM, with normal tone. Right lower extremity decreased range of motion due to pain, tolerates some weightbearing with pain. Less than 3/5. NEURO: CN 2-12 grossly intact. Sensation intact in all extremities. No tremor noted in 4 extremities. POSTURE and GAIT: Sitting posture good. Balance appears reasonable. Gait deferred until seen with therapy. PSYCH: Alert, orientated x3, affect appears flattened. Insight appears intact so far, will monitor. - Constitutional Vitals: Vital Signs - 12hr 06/20/19 06/21/19 06/21/19 22:00 04:37 07:21 Temperature 36.9 C 36.9 C Pulse Rate 88 90 Respiratory 17 18 Rate Respiratory 17 Rate [Right Hip ] Blood Pressure 102/47 110/47 O2 Sat by Pulse 93 95 Oximetry 06/21/19 08:28 Temperature Pulse Rate Respiratory Rate Respiratory Rate [Right Hip ] Blood Pressure O2 Sat by Pulse 100 Oximetry - Allied health notes Allied health notes reviewed: nursing, PT, OT - Labs CBC & Chem 7: 06/21/19 04:06 06/22/19 04:50 Labs: Laboratory Results - last 72 hr 06/21/19 06/21/19 04:06 04:06 WBC 7.9 RBC 2.76 L Hgb 8.0 L Hct 24.1 L MCV 87 MCH 29 MCHC 33 RDW 14.0 Plt Count 629 H Add Manual Diff Complete Total Counted 100 Seg Neuts % (Manual) 59.0 Band Neutrophils % 2.0 Lymphocytes % (Manual) 30.0 Reactive Lymphs % (Man) 0 Monocytes % (Manual) 5.0 Eosinophils % (Manual) 1.0 Basophils % (Manual) 0 Metamyelocytes % 2.0 Myelocytes % 1.0 Promyelocytes % 0 Blast Cells % 0 Nucleated RBC % Not Reportable Seg Neutrophils # Man 4.7 Band Neutrophils # 0.2 Lymphocytes # (Manual) 2.4 Abs React Lymphs (Man) 0.0 Monocytes # (Manual) 0.4 Eosinophils # (Manual) 0.1 Basophils # (Manual) 0.0 Metamyelocytes # 0.2 Myelocytes # 0.1 Promyelocytes # 0.0 Blast Cells # 0.0 WBC Morphology Not Reportable Hypersegmented Neuts Not Reportable Hyposegmented Neuts Not Reportable Hypogranular Neuts Not Reportable Smudge Cells Not Reportable Toxic Granulation Not Reportable Toxic Vacuolation Not Reportable Dohle Bodies Not Reportable Pelger-Huet Anomaly Not Reportable Bobby Rods Not Reportable Platelet Estimate Consistent w auto Clumped Platelets Not Reportable Plt Clumps, EDTA Not Reportable Large Platelets Not Reportable Giant Platelets Not Reportable Platelet Satelliting Not Reportable Plt Morphology Comment Not Reportable RBC Morphology Not Reportable Dimorphic RBCs Not Reportable Polychromasia Not Reportable Hypochromasia 1+ Poikilocytosis Not Reportable Anisocytosis Not Reportable Microcytosis Not Reportable Macrocytosis Not Reportable Spherocytes Not Reportable Pappenheimer Bodies Not Reportable Sickle Cells Not Reportable Target Cells Not Reportable Tear Drop Cells Not Reportable Ovalocytes Not Reportable Helmet Cells Not Reportable Brito-[place] Bodies Not Reportable [place] Rings Not Reportable Major Cells Not Reportable Bite Cells Not Reportable Crenated Cell Not Reportable Elliptocytes Not Reportable Acanthocytes (Spur) Not Reportable Rouleaux Not Reportable Hemoglobin C Crystals Not Reportable Schistocytes Not Reportable Malaria parasites Not Reportable Partha Bodies Not Reportable Hem Pathologist Commnt No Sodium 138 Potassium 4.7 Chloride 101.8 Carbon Dioxide 24 Anion Gap 17 BUN 21 H Creatinine 0.5 L Estimated GFR > 60 BUN/Creatinine Ratio 42 Glucose 134 H Calcium 8.8 Magnesium 2.30 Total Bilirubin 0.30 AST 59 H ALT 61 H Alkaline Phosphatase 144 H Total Protein 6.2 L Albumin 3.1 L Albumin/Globulin Ratio 1.0 Assessment and Plan Right hip fracture: IM nail on 06/16/2019. Continue wound care, weightbearing as tolerated, DVT prophylaxis. Pain medications have been adjusted for preparation to improve increase weightbearing activities. Monitor for any signs of injury and or possible infection. Right humerus fracture: Underwent ORIF on 06/09/2019. Continue to monitor for any signs of infection (reported dog bite) and or signs of DVT. Full weightbe aring in this extremity. Dehydration: 1L NS IVF today. Monitor Hypothyroidism: Continue medications monitor Depression: restart zoloft, monitor for s/s of worsening condition. Denies SI currently Alcohol abuse: Restart thiamine and folic acid along with multivitamin. Patient should be out of danger for withdrawal but will monitor for any signs or symptoms of withdrawal/DTs. Anemia: started iron, vit c, folate, B12. Monitor. Appears to be post- operative blood loss. Hgb was normal on initial presentation Z73.6 ADL dysfunction: OT will work on improving ability to perform ADLs (including assistive devices) to increase independence and decrease caregiver burden and improve functional transfers and mobility training. R26.2 Difficulty walking: PT will work on gait training and proper use of assistive devices and advance as appropriate to use of stairs and outside ambulation on uneven surfaces. R26.81 Unsteadiness on feet: PT will work on improving static and dynamic sitting and standing balance as well as proper use of assistive devices to decrease risk of falls. R26.89 Abnormality of gait: PT will work to improve safety and efficiency of gait through neuromotor training and gait training along with instruction on proper use of assistive devices. M62.81 Muscle weakness: PT & OT will work on strengthening exercises to improve functional strength including mixture of closed and open kinetic chain exercises. R53.81 Debility: PT & OT will work on improving overall functional status to improve participation with ADLs, mobility and social involvement. R53.83 Fatigue: PT & OT will work on improving endurance through aerobic exercises and therapeutic activity while monitoring patients tolerance for activity and vital signs as needed. DVT ppx: Lovenox Pain: Continue physical modalities in therapy and pain medications as needed to achieve functional pain control. Medications adjusted for pain control levels considering increased weightbearing with therapy Sleep: start low dose trazodone, monitor Bowel: Monitor and address as needed. PRN medications made available Appetite: Monitor and address as needed. Discharge planning: Pending therapy progress and care plan meeting. Will continue discussion with therapy team, SW, patient and family. Restrictions/ Precautions: Falls WB status: Weightbearing as tolerated right lower extremity Functional Hx: ADLs: Independent Cognition: Independent Mobility: No AD Barriers to Discharge: Decreased mobility and ability to perform self care, balance deficits, weakness Estimated Length of Stay: 14-18 days Discharge Destination: Home with family
[2019-06-21] MEDS: ATIVAN PO PRN (09:50)
[2019-06-21] MEDS ORDERED: NACL 0.9% 1000 ML 1,000 ML IV SCH (13:00)
[2019-06-21] MEDS: ZOLOFT PO SCH (16:03)
[2019-06-21] MEDS: DESYREL PO SCH (21:05)
[2019-06-22 05:50] LABS: BUN/Creatinine Ratio 33; Blood Urea Nitrogen 20 mg/dL (7-17); Calcium 8.5 mg/dL (8.4-10.2); Hemolysis Index 0
[2019-06-22] MEDS: ROXICODONE PO PRN ×3 (05:51→21:31)
[2019-06-22] MEDS: SYNTHROID PO SCH (05:51)
[2019-06-22] MEDS: VITAMIN B-12 PO SCH (08:25)
[2019-06-22] MEDS: VITAMIN B-1 PO SCH (08:25)
[2019-06-22] MEDS: ZOLOFT PO SCH (08:25)
[2019-06-22] MEDS: FEOSOL PO SCH ×2 (08:25→21:31)
[2019-06-22] MEDS: PEPCID PO SCH ×2 (08:25→21:32)
[2019-06-22] MEDS: LOVENOX SUB-Q SCH (08:25)
[2019-06-22] MEDS: VITAMIN C PO SCH ×2 (08:26→21:32)
[2019-06-22] MEDS: FOLVITE PO SCH (08:26)
--- NOTE | 2019-06-22 12:24 | Progress Note ---
Subjective Date of service: 06/22/19 Principal diagnosis: R hip fracture Interval history: 63-year-old female who was recently discharged after a right humerus fracture and presented back to the ER one day later with pain in the right hip. X-ray showed a right intertrochanteric hip fracture. Ortho was consulted and she was taken for surgery and received an IM nail. She was placed on CIMN protocol for alcohol abuse. She is anemic and this appears to be a combination of both chronic disease as well as postoperative. Electrolytes were monitored and replaced as needed. She does have cognitive issues which may be related to either dementia and or alcohol abuse. On exam patient appears to be depressed and is currently refusing further treatment. Does have a history of bipolar disorder noted in the record without any treatment apparently. We'll attempt to determine what medications she's been on in the past and her restart medications as needed. Also history of EtOH dependence which she has downplayed. Patient is participating in therapy and making slow progress. Mostly related to pain, but she only had pain meds twice yesterday. Discussed with her again the need to ask for pain meds. Upon entering the room she is in the bed with the room dark. Appears depressed. Refuses SI. I offered to listen or find a therapist. Declined offer. States she slept better last night. Requires encouragement but can make progress. Taking rest breaks as needed. +BM. Denies palpitations, dyspnea, cough, N/V. Pain in RLE better with medications. BUN/Cr still elevated, will give 1L NS today after therapy. Poor overall nutrition. Will add supplement. RUE wound warm with area of drainage. Start abx tx. Continue to keep dressed and monitor. All records, vitals, labs and medications were reviewed. No other issues per patient, nursing or therapy. Objective - Exam Narrative Exam: MUSCULOSKELETAL SPECIALTY EXAM CONSTITUTIONAL: Well developed, well nourished, appropriately groomed EENT: EOMI. Hearing intact to soft voice RESPIRATORY: Clear to auscultation bilaterally, no increased work of breathing CARDIOVASCULAR: Regular Rate/ Rhythm, no swelling, edema or tenderness in BUE or BLE. All extrem ities warm. GI: + bowel sounds, soft, NTTP, nondistended. INTEGUMENTARY: Wound on right upper extremity, warm with slight drainage and with bruised digits and surgical wound on right lower extremity otherwise, Normal, no lesion, rash, masses or bruising noted in extremities. MUSCULOSKELETAL: LUE and LLE normal without defect, crepitus, subluxation, effusion, arthritic changes or TTP. Right upper extremity with fracture s/p ORIF, wound. Right lower extremity with hip fracture has been repaired, wound. LUE 4+/5, good ROM, with normal tone. Right upper extremity decreased range of motion with inability to test strength due to fracture. LLE 4+/5 good ROM, with normal tone. Right lower extremity decreased range of motion due to pain, tolerates some weightbearing with pain. Less than 3/5. NEURO: CN 2-12 grossly intact. Sensation intact in all extremities. No tremor noted in 4 extremities. POSTURE and GAIT: Sitting posture good. Balance appears reasonable. Gait deferred until seen with therapy. PSYCH: Alert, orientated x3, affect appears flattened. Insight appears intact so far, will monitor. - Constitutional Vitals: Vital Signs - 12hr 06/22/19 06/22/19 07:50 07:51 Temperature 36.9 C Pulse Rate 76 75 Respiratory 18 Rate Blood Pressure 97/34 O2 Sat by Pulse 95 94 Oximetry - Allied health notes Allied health notes reviewed: nursing, PT, OT FIMS assessment as documented by PT/OT/ST: Grooming Patient cleans teeth/dentures: Yes Patient benson/brushes hair: Yes Patient washes, rinses and Yes dries face: Patient washes, rinses and Yes dries hands: Patient applies make-up: No Patient performs (no make-up/ 03/03 (100%) shaving): Grooming FIM Score 5. Supervision ([place] applies toothpaste or opens containers.) Toileting Toileting Device Bedpan Toileting FIM Score 2. Maximal Assistance (Patient = 25% or more) Social interaction/Memory/Problem solving Social Interaction FIM Score 5. Supervision (Needs supv. <10%. Needs encouragement to participate.) Memory FIM Score 5. Supervision (Needs cueing <10%, stressful/ unfamiliar situations.) Problem Solving FIM Score 5. Supervision (Needs cueing <10% to solve routine problems.) Transfers Mode of Locomotion: Wheelchair Bed/Chair/Wheelchair Transfers 4. Minimal Assistance (Patient = 75% or more. FIM Score Needs touching.) Toilet Transfers FIM Score 3. Moderate Assistance (Patient = 50% or more. Some lifting.) Patient transferred to: Shower Shower Transfers FIM Score 3. Moderate Assistance (Patient = 50% or more. Some lifting.) Locomotion- walk/wheelchair Most Frequent Mode of Wheelchair Locomotion: Ambulation Distance 2 Walking FIM Score 1. Total Assistance (Pt. < 25%, 2 or more person assist, or <50 ft.) Wheelchair Propulsion Distance 120 Wheelchair FIM Score 2. Maximal Assistance (Patient = 25% or more. Minimum of 50 ft.) Eating Eating FIM Score 5. Supervision/Set-Up (Needs help w/ c ontainers, cutting meat, etc.) Dressing-Upper body Patient retrieves clothing No items: Patient applies/removes UE No: awaiting elbow hinge brace prosthesis or orthosis: Upper Body Dressing FIM Score 2. Maximal Assistance (Patient = 25% or more) Dressing-lower body Patient retrieves clothing No items: Patient applies/removes LE No prosthesis or orthosis: Lower Body Dressing FIM Score 2. Maximal Assistance (Patient = 25% or more) - Labs CBC & Chem 7: 06/21/19 04:06 06/22/19 04:50 Labs: Laboratory Results - last 72 hr 06/21/19 06/21/19 06/22/19 04:06 04:06 04:50 WBC 7.9 RBC 2.76 L Hgb 8.0 L Hct 24.1 L MCV 87 MCH 29 MCHC 33 RDW 14.0 Plt Count 629 H Add Manual Diff Complete Total Counted 100 Seg Neuts % (Manual) 59.0 Band Neutrophils % 2.0 Lymphocytes % (Manual) 30.0 Reactive Lymphs % (Man) 0 Monocytes % (Manual) 5.0 Eosinophils % (Manual) 1.0 Basophils % (Manual) 0 Metamyelocytes % 2.0 Myelocytes % 1.0 Promyelocytes % 0 Blast Cells % 0 Nucleated RBC % Not Reportable Seg Neutrophils # Man 4.7 Band Neutrophils # 0.2 Lymphocytes # (Manual) 2.4 Abs React Lymphs (Man) 0.0 Monocytes # (Manual) 0.4 Eosinophils # (Manual) 0.1 Basophils # (Manual) 0.0 Metamyelocytes # 0.2 Myelocytes # 0.1 Promyelocytes # 0.0 Blast Cells # 0.0 WBC Morphology Not Reportable Hypersegmented Neuts Not Reportable Hyposegmented Neuts Not Reportable Hypogranular Neuts Not Reportable Smudge Cells Not Reportable Toxic Granulation Not Reportable Toxic Vacuolation Not Reportable Dohle Bodies Not Reportable Pelger-Huet Anomaly Not Reportable Bobby Rods Not Reportable Platelet Estimate Consistent w auto Clumped Platelets Not Reportable Plt Clumps, EDTA Not Reportable Large Platelets Not Reportable Giant Platelets Not Reportable Platelet Satelliting Not Reportable Plt Morphology Comment Not Reportable RBC Morphology Not Reportable Dimorphic RBCs Not Reportable Polychromasia Not Reportable Hypochromasia 1+ Poikilocytosis Not Reportable Anisocytosis Not Reportable Microcytosis Not Reportable Macrocytosis Not Reportable Spherocytes Not Reportable Pappenheimer Bodies Not Reportable Sickle Cells Not Reportable Target Cells Not Reportable Tear Drop Cells Not Reportable Ovalocytes Not Reportable Helmet Cells Not Reportable Brito-[place] Bodies Not Reportable [place] Rings Not Reportable Major Cells Not Reportable Bite Cells Not Reportable Crenated Cell Not Reportable Elliptocytes Not Reportable Acanthocytes (Spur) Not Reportable Rouleaux Not Reportable Hemoglobin C Crystals Not Reportable Schistocytes Not Reportable Malaria parasites Not Reportable Partha Bodies Not Reportable Hem Pathologist Commnt No Sodium 138 137 Potassium 4.7 4.2 Chloride 101.8 101.4 Carbon Dioxide 24 23 Anion Gap 17 17 BUN 21 H 20 H Creatinine 0.5 L 0.6 L Estimated GFR > 60 > 60 BUN/Creatinine Ratio 42 33 Glucose 134 H 192 H Calcium 8.8 8.5 Magnesium 2.30 Total Bilirubin 0.30 AST 59 H ALT 61 H Alkaline Phosphatase 144 H Total Protein 6.2 L Albumin 3.1 L Albumin/Globulin Ratio 1.0 Assessment and Plan Right hip fracture: IM nail on 06/16/2019. Continue wound care, weightbearing as tolerated, DVT prophylaxis. Pain medications have been adjusted for preparation to improve increase weightbearing activities. Monitor for any signs of injury and or possible infection. Right humerus fracture: Underwent ORIF on 06/09/2019. Continue to monitor for any signs of infection (reported dog bite) and or signs of DVT. Full weightbearing in this extremity. Dehydration: 1L NS IVF today. Monitor Hypothyroidism: Continue medications monitor Depression: restart zoloft, monitor for s/s of worsening condition. Denies SI currently Alcohol abuse: Restart thiamine and folic acid along with multivitamin. Patient should be out of danger for withdrawal but will monitor for any signs or symptoms of withdrawal/DTs. Anemia: started iron, vit c, folate, B12. Monitor. Appears to be post- operative blood loss. Hgb was normal on initial presentation RUE wound with slight drainage: start levaquin and monitor Z73.6 ADL dysfunction: OT will work on improving ability to perform ADLs (inc luding assistive devices) to increase independence and decrease caregiver burden and improve functional transfers and mobility training. R26.2 Difficulty walking: PT will work on gait training and proper use of assistive devices and advance as appropriate to use of stairs and outside ambulation on uneven surfaces. R26.81 Unsteadiness on feet: PT will work on improving static and dynamic sitting and standing balance as well as proper use of assistive devices to decrease risk of falls. R26.89 Abnormality of gait: PT will work to improve safety and efficiency of gait through neuromotor training and gait training along with instruction on proper use of assistive devices. M62.81 Muscle weakness: PT & OT will work on strengthening exercises to improve functional strength including mixture of closed and open kinetic chain exercises. R53.81 Debility: PT & OT will work on improving overall functional status to improve participation with ADLs, mobility and social involvement. R53.83 Fatigue: PT & OT will work on improving endurance through aerobic exercises and therapeutic activity while monitoring patients tolerance for activity and vital signs as needed. DVT ppx: Lovenox Pain: Continue physical modalities in therapy and pain medications as needed to achieve functional pain control. Medications adjusted for pain control levels considering increased weightbearing with therapy Sleep: start low dose trazodone, monitor Bowel: Monitor and address as needed. PRN medications made available Appetite: Monitor and address as needed. Discharge planning: Pending therapy progress and care plan meeting. Will continue discussion with therapy team, SW, patient and family. Restrictions/ Precautions: Falls WB status: Weightbearing as tolerated right lower extremity Functional Hx: ADLs: Independent Cognition: Independent Mobility: No AD Barriers to Discharge: Decreased mobility and ability to perform self care, balance deficits, weakness Estimated Length of Stay: 14-18 days Discharge Destination: Home with family
[2019-06-22] MEDS ORDERED: NACL 0.9% 1000 ML 1,000 ML IV SCH (16:00)
[2019-06-22] MEDS: LEVAQUIN PO SCH (16:32)
[2019-06-22] MEDS: DESYREL PO SCH (21:31)
[2019-06-23] MEDS: SYNTHROID PO SCH (07:55)
[2019-06-23] MEDS: FOLVITE PO SCH (09:27)
[2019-06-23] MEDS: FEOSOL PO SCH ×2 (09:27→21:28)
[2019-06-23] MEDS: VITAMIN B-1 PO SCH (09:27)
[2019-06-23] MEDS: PEPCID PO SCH ×2 (09:28→21:28)
[2019-06-23] MEDS: LOVENOX SUB-Q SCH (09:28)
[2019-06-23] MEDS: LEVAQUIN PO SCH (09:28)
[2019-06-23] MEDS: VITAMIN B-12 PO SCH (09:28)
[2019-06-23] MEDS: ZOLOFT PO SCH (09:28)
[2019-06-23] MEDS: VITAMIN C PO SCH ×2 (09:29→21:28)
--- NOTE | 2019-06-23 10:10 | Progress Note ---
Subjective Date of service: 06/23/19 Principal diagnosis: R hip fracture Interval history: 63-year-old female who was recently discharged after a right humerus fracture and presented back to the ER one day later with pain in the right hip. X-ray showed a right intertrochanteric hip fracture. Ortho was consulted and she was taken for surgery and received an IM nail. She was placed on CIWA protocol for alcohol abuse. She is anemic and this appears to be a combination of both chronic disease as well as postoperative. Electrolytes were monitored and replaced as needed. She does have cognitive issues which may be related to either dementia and or alcohol abuse. On exam patient appears to be depressed and is currently refusing further treatment. Does have a history of bipolar disorder noted in the record without any treatment apparently. We'll attempt to determine what medications she's been on in the past and her restart medications as needed. Also history of EtOH dependence which she has downplayed. Patient is participating in therapy and making slow progress. Needs encou ragement, decreased initiation. Discussed with Ortho WB status - different orders listed on other side. Confirmed Partial WB on RUE/RLE. Hinged elbow brace 90-45* with aROM. States her pain is better to me but states that is reason for not wanting to fully participate with therapy. Discussed with her again the need to ask for pain meds. Also discussed need to participate so she can return home alone. Explained alternative would be to discharge to SNF if she refuses. Upon entering the room she is in the bed with the room dark. Appears depressed. Refuses SI. I offered to listen or find a therapist. Declined offer. Taking rest breaks as needed. +BM. Denies palpitations, dyspnea, cough, N/V. Pain in RLE better with medications. BUN/Cr pending. Poor overall nutrition. RUE wound warm with area of drainage. Continue abx, keep dressed and monitor. All records, vitals, labs and medications were reviewed. No other issues per patient, nursing or therapy. Objective - Exam Narrative Exam: MUSCULOSKELETAL SPECIALTY EXAM CONSTITUTIONAL: Well developed, well nourished, appropriately groomed EENT: EOMI. Hearing intact to soft voice RESPIRATORY: Clear to auscultation bilaterally, no increased work of breathing CARDIOVASCULAR: Regular Rate/ Rhythm, no swelling, edema or tenderness in BUE or BLE. All extremities warm. GI: + bowel sounds, soft, NTTP, nondistended. INTEGUMENTARY: Wound on right upper extremity, warm with slight drainage and with bruised digits and surgical wound on right lower extremity otherwise, Normal, no lesion, rash, masses or bruising noted in extremities. MUSCULOSKELETAL: LUE and LLE normal without defect, crepitus, subluxation, effusion, arthritic changes or TTP. Right upper extremity with fracture s/p ORIF, wound. Right lower extremity with hip fracture has been repaired, wound. LUE 4+/5, good ROM, with normal tone. Right upper extremity decreased range of motion with inability to test strength due to fracture. LLE 4+/5 good ROM, with normal tone. Right lower extremity decreased range of motion due to pain, tolerates some weightbearing with pain. Less than 3/5. NEURO: CN 2-12 grossly intact. Sensation intact in all extremities. No tremor noted in 4 extremities. POSTURE and GAIT: Sitting posture good. Balance appears reasonable. Gait deferred until seen with therapy. PSYCH: Alert, orientated x3, affect flattened. Insight appears intact so far, will monitor. - Constitutional Vitals: Vital Signs - 12hr 06/23/19 06:57 Temperature 36.9 C Pulse Rate 75 Respiratory 18 Rate Blood Pressure 99/40 O2 Sat by Pulse 94 Oximetry - Allied health notes Allied health notes reviewed: nursing, PT, OT FIMS assessment as documented by PT/OT/ST: Grooming Patient cleans teeth/dentures: Yes Patient benson/brushes hair: Yes Patient washes, rinses and Yes dries face: Patient washes, rinses and Yes dries hands: Patient applies make-up: No Patient performs (no make-up/ 4/4 (100%) shaving): Grooming FIM Score 5. Supervision ([place] applies toothpaste or opens containers.) Toileting Toileting Device Bedpan Toileting FIM Score 2. Maximal Assistance (Patient = 25% or more) Social interaction/Memory/Problem solving Social Interaction FIM Score 4. Minimal Assistance (Interacts appropriately 75-90%.) Memory FIM Score 5. Supervision (Needs cueing <10%, stressful/ unfamiliar situations.) Problem Solving FIM Score 4. Minimal Assistance (Solves routine problems 75-90%.) Transfers Mode of Locomotion: Wheelchair Bed/Chair/Wheelchair Transfers 4. Minimal Assistance (Patient = 75% or more. FIM Score Needs touching.) Toilet Transfers FIM Score 3. Moderate Assistance (Patient = 50% or more. Some lifting.) Patient transferred to: Shower Shower Transfers FIM Score 3. Moderate Assistance (Patient = 50% or more. Some lifting.) Locomotion- walk/wheelchair Most Frequent Mode of Wheelchair Locomotion: Ambulation Distance 2 Walking FIM Score 1. Total Assistance (Pt. < 25%, 2 or more person assist, or <50 ft.) Wheelchair Propulsion Distance 120 Wheelchair FIM Score 2. Maximal Assistance (Patient = 25% or more. Minimum of 50 ft.) Eating Eating FIM Score 5. Supervision/Set-Up (Needs help w/ containers, cutting meat, etc.) Dressing-Upper body Patient retrieves clothing No items: Patient applies/removes UE No: awaiting elbow hinge brace prosthesis or orthosis: Upper Body Dressing FIM Score 2. Maximal Assistance (Patient = 25% or more) Dressing-lower body Patient retrieves clothing No items: Patient applies/removes LE No prosthesis or orthosis: Lower Body Dressing FIM Score 2. Maximal Assistance (Patient = 25% or more) - Labs CBC & Chem 7: 06/21/19 04:06 06/22/19 04:50 Labs: Laboratory Results - last 72 hr 06/21/19 06/21/19 06/22/19 04:06 04:06 04:50 WBC 7.9 RBC 2.76 L Hgb 8.0 L Hct 24.1 L MCV 87 MCH 29 MCHC 33 RDW 14.0 Plt Count 629 H Add Manual Diff Complete Total Counted 100 Seg Neuts % (Manual) 59.0 Band Neutrophils % 2.0 Lymphocytes % (Manual) 30.0 Reactive Lymphs % (Man) 0 Monocytes % (Manual) 5.0 Eosinophils % (Manual) 1.0 Basophils % (Manual) 0 Metamyelocytes % 2.0 Myelocytes % 1.0 Promyelocytes % 0 Blast Cells % 0 Nucleated RBC % Not Reportable Seg Neutrophils # Man 4.7 Band Neutrophils # 0.2 Lymphocytes # (Manual) 2.4 Abs React Lymphs (Man) 0.0 Monocytes # (Manual) 0.4 Eosinophils # (Manual) 0.1 Basophils # (Manual) 0.0 Metamyelocytes # 0.2 Myelocytes # 0.1 Promyelocytes # 0.0 Blast Cells # 0.0 WBC Morphology Not Reportable Hypersegmented Neuts Not Reportable Hyposegmented Neuts Not Reportable Hypogranular Neuts Not Reportable Smudge Cells Not Reportable Toxic Granulation Not Reportable Toxic Vacuolation Not Reportable Dohle Bodies Not Reportable Pelger-Huet Anomaly Not Reportable Bobby Rods Not Reportable Platelet Estimate Consistent w auto Clumped Platelets Not Reportable Plt Clumps, EDTA Not Reportable Large Platelets Not Reportable Giant Platelets Not Reportable Platelet Satelliting Not Reportable Plt Morphology Comment Not Reportable RBC Morphology Not Reportable Dimorphic RBCs Not Reportable Polychromasia Not Reportable Hypochromasia 1+ Poikilocytosis Not Reportable Anisocytosis Not Reportable Microcytosis Not Reportable Macrocytosis Not Reportable Spherocytes Not Reportable Pappenheimer Bodies Not Reportable Sickle Cells Not Reportable Target Cells Not Reportable Tear Drop Cells Not Reportable Ovalocytes Not Reportable Helmet Cells Not Reportable Brito-[place] Bodies Not Reportable [place] Rings Not Reportable Major Cells Not Reportable Bite Cells Not Reportable Crenated Cell Not Reportable Elliptocytes Not Reportable Acanthocytes (Spur) Not Reportable Rouleaux Not Reportable Hemoglobin C Crystals Not Reportable Schistocytes Not Reportable Malaria parasites Not Reportable Partha Bodies Not Reportable Hem Pathologist Commnt No Sodium 138 137 Potassium 4.7 4.2 Chloride 101.8 101.4 Carbon Dioxide 24 23 Anion Gap 17 17 BUN 21 H 20 H Creatinine 0.5 L 0.6 L Estimated GFR > 60 > 60 BUN/Creatinine Ratio 42 33 Glucose 134 H 192 H Calcium 8.8 8.5 Magnesium 2.30 Total Bilirubin 0.30 AST 59 H ALT 61 H Alkaline Phosphatase 144 H Total Protein 6.2 L Albumin 3.1 L Albumin/Globulin Ratio 1.0 Assessment and Plan Right hip fracture: IM nail on 06/16/2019. Continue wound care, weightbearing as tolerated, DVT prophylaxis. Pain medications have been adjusted for preparation to improve increase weightbearing activities. Monitor for any signs of injury and or possible infection. Right humerus fracture: Underwent ORIF on 06/09/2019. Continue to monitor for any signs of infection (reported dog bite) and or signs of DVT. Slight drainage and warm, cont abx , monitor Dehydration: 1L NS IVF today. Monitor Hypothyroidism: Continue medications monitor Depression: restart zoloft, monitor for s/s of worsening condition. Denies SI currently Alcohol abuse: Restart thiamine and folic acid along with multivitamin. Patient should be out of danger for withdrawal but will monitor for any signs or symptoms of withdrawal/DTs. Anemia: started iron, vit c, folate, B12. Monitor. Appears to be post- operative blood loss. Hgb was normal on initial presentation Z73.6 ADL dysfunction: OT will work on improving ability to perform ADLs (inc luding assistive devices) to increase independence and decrease caregiver burden and improve functional transfers and mobility training. R26.2 Difficulty walking: PT will work on gait training and proper use of assistive devices and advance as appropriate to use of stairs and outside ambulation on uneven surfaces. R26.81 Unsteadiness on feet: PT will work on improving static and dynamic sitting and standing balance as well as proper use of assistive devices to decrease risk of falls. R26.89 Abnormality of gait: PT will work to improve safety and efficiency of gait through neuromotor training and gait training along with instruction on proper use of assistive devices. M62.81 Muscle weakness: PT & OT will work on strengthening exercises to improve functional strength including mixture of closed and open kinetic chain exercises. R53.81 Debility: PT & OT will work on improving overall functional status to improve participation with ADLs, mobility and social involvement. R53.83 Fatigue: PT & OT will work on improving endurance through aerobic exercises and therapeutic activity while monitoring patients tolerance for activity and vital signs as needed. DVT ppx: Lovenox Pain: Continue physical modalities in therapy and pain medications as needed to achieve functional pain control. Medications adjusted for pain control levels considering increased weightbearing with therapy Sleep: start low dose trazodone, monitor Bowel: Monitor and address as needed. PRN medications made available Appetite: Monitor and address as needed. Discharge planning: Pending therapy progress and care plan meeting. Will continue discussion with therapy team, SW, patient and family. Restrictions/ Precautions: Falls WB status: Partial RUE/RLE. RUE hinged elbow brace with 90-45*. aROM ok Functional Hx: ADLs: Independent Cognition: Independent Mobility: No AD Barriers to Discharge: Decreased mobility and ability to perform self care, balance deficits, weakness Estimated Length of Stay: 14-18 days Discharge Destination: Home with family
[2019-06-23] MEDS: ROXICODONE PO PRN ×2 (14:35→21:28)
[2019-06-23 15:26] LABS: BUN/Creatinine Ratio 28; Blood Urea Nitrogen 22 mg/dL (7-17); Calcium 8.7 mg/dL (8.4-10.2); Hemolysis Index 23
[2019-06-23] MEDS: DESYREL PO SCH (21:28)
[2019-06-24] MEDS: SYNTHROID PO SCH (05:17)
[2019-06-24 06:09] LABS: Basophils # (Auto) 0.1 K/mm3 (0.0-0.1); Basophils % (Auto) 0.7 % (0.0-1.8); Eosinophils # (Auto) 0.2 K/mm3 (0.0-0.4); Eosinophils % (Auto) 2.6 % (0.0-4.3); Hematocrit 25.2 % (30.3-42.9); Hemoglobin 8.3 gm/dl (10.1-14.3); Lymphocytes # (Auto) 1.6 K/mm3 (1.2-5.4); Lymphocytes % (Auto) 21.9 % (13.4-35.0); Mean Corpuscular HGB Conc 33 % (30-34); Mean Corpuscular Volume 88 fl (79-97); Monocytes # (Auto) 0.5 K/mm3 (0.0-0.8); Monocytes % (Auto) 6.5 % (0.0-7.3); Platelet Count 772 K/mm3 (140-440); Red Blood Count 2.87 M/mm3 (3.65-5.03); Red Cell Distribution Width 14.3 % (13.2-15.2)
[2019-06-24] MEDS: VITAMIN B-12 PO SCH (09:07)
[2019-06-24] MEDS: FOLVITE PO SCH (09:07)
[2019-06-24] MEDS: ZOLOFT PO SCH (09:07)
[2019-06-24] MEDS: FEOSOL PO SCH ×2 (09:08→21:09)
[2019-06-24] MEDS: PEPCID PO SCH ×2 (09:08→21:08)
[2019-06-24] MEDS: LEVAQUIN PO SCH (09:08)
[2019-06-24] MEDS: VITAMIN B-1 PO SCH (09:08)
[2019-06-24] MEDS: LOVENOX SUB-Q SCH (09:08)
[2019-06-24] MEDS: VITAMIN C PO SCH ×2 (09:09→21:08)
--- NOTE | 2019-06-24 13:20 | Progress Note ---
Subjective Date of service: 06/24/19 Principal diagnosis: R hip fracture Interval history: 63-year-old female who was recently discharged after a right humerus fracture and presented back to the ER one day later with pain in the right hip. X-ray showed a right intertrochanteric hip fracture. Ortho was consulted and she was taken for surgery and received an IM nail. She was placed on CIIN protocol for alcohol abuse. She is anemic and this appears to be a combination of both chronic disease as well as postoperative. Electrolytes were monitored and replaced as needed. She does have cognitive issues which may be related to either dementia and or alcohol abuse. On exam patient appears to be depressed and is currently refusing further treatment. Does have a history of bipolar disorder noted in the record without any treatment apparently. We'll attempt to determine what medications she's been on in the past and her restart medications as needed. Also history of EtOH dependence which she has downplayed. Patient is in bed in a dark room. Appears depressed. Slowed interaction. Denies current SI, admits to prior SI. Previously declined assistance from psych but is now accepting. Wants to talk to MD. Patient is participating in therapy and making slow progress. Needs encouragement, decreased initiation. States her pain is better to me but states that is reason for not wanting to fully participate with therapy. Also discussed need to participate so she can return home. Found out late yesterday that her home is actually a personal half-way. Patient states that she lives alone. [facility] only needs her to be able to transfer in order to accept her back. Refused therapy again today and after discussion finally agreed and did fairly well. Explained alternative would be to discharge to SNF if she refuses. Taking rest breaks as needed. +BM. Denies palpitations, dyspnea, cough, N/V. Pain in RLE better with medications. Poor overall nutrition and not eating well, likely depression related. Discussed need for nutrition in order to heal. RUE wound warm with area of drainage. Continue abx, keep dressed and monitor. All records, vitals, labs and medications were reviewed. No other issues per patient, nursing or therapy. Objective - Exam Narrative Exam: MUSCULOSKELETAL SPECIALTY EXAM CONSTITUTIONAL: Well developed, appropriately groomed, somewhat cooperative EENT: EOMI. Hearing intact to soft voice RESPIRATORY: Clear to auscultation bilaterally, no increased work of breathing CARDIOVASCULAR: Regular Rate/ Rhythm. Slight swelling in RUE otherwise no swelling, edema or tenderness in BUE or BLE. All extremities warm. GI: + bowel sounds, soft, NTTP, nondistended. INTEGUMENTARY: Wound on right upper extremity, warm with slight drainage and surgical wound on right lower extremity otherwise, Normal, no lesion, rash, masses or bruising noted in extremities. MUSCULOSKELETAL: LUE and LLE normal without defect, crepitus, subluxation, effusion, arthritic changes or TTP. Right upper extremity with fracture s/p ORIF, wound. Right lower extremity with hip fracture has been repaired, wound. LUE 4+/5, good ROM, with normal tone. Right upper extremity decreased range of motion with inability to test strength due to fracture. LLE 4+/5 good ROM, with normal tone. Right lower extremity decreased range of motion due to pain, tolerates some weightbearing with pain. Less than 3/5. NEURO: CN 2-12 grossly intact. Sensation intact in all extremities. No tremor noted in 4 extremities. POSTURE and GAIT: Sitting posture good. Balance appears reasonable. Gait deferred until seen with therapy. PSYCH: Alert, orientated x3, affect flattened. Insight appears intact so far, will monitor. - Constitutional Vitals: Vital Signs - 12hr 06/24/19 06/24/19 06/24/19 04:42 07:27 12:00 Temperature 36.6 C 37.3 C 37.1 C Pulse Rate 81 77 Respiratory 17 18 18 Rate Blood Pressure 102/41 Blood Pressure 97/47 104/49 [Left] O2 Sat by Pulse 96 95 96 Oximetry - Allied health notes Allied health notes reviewed: nursing, PT, OT FIMS assessment as documented by PT/OT/ST: Grooming Patient cleans teeth/dentures: Yes Patient benson/brushes hair: Yes Patient washes, rinses and Yes dries face: Patient washes, rinses and Yes dries hands: Patient applies make-up: No Patient performs (no make-up/ / (100%) shaving): Grooming FIM Score 5. Supervision ([place] applies toothpaste or opens containers.) Toileting Toileting Device Bedpan Toileting FIM Score 2. Maximal Assistance (Patient = 25% or more) Social interaction/Memory/Problem solving Social Interaction FIM Score 5. Supervision (Needs supv. <10%. Needs encouragement to participate.) Memory FIM Score 5. Supervision (Needs cueing <10%, stressful/ unfamiliar situations.) Problem Solving FIM Score 5. Supervision (Needs cueing <10% to solve routine problems.) Transfers Mode of Locomotion: Wheelchair Bed/Chair/Wheelchair Transfers 4. Minimal Assistance (Patient = 75% or more. FIM Score Needs touching.) Toilet Transfers FIM Score 3. Moderate Assistance (Patient = 50% or more. Some lifting.) Patient transferred to: Shower Shower Transfers FIM Score 3. Moderate Assistance (Patient = 50% or more. Some lifting.) Locomotion- walk/wheelchair Most Frequent Mode of Wheelchair Locomotion: Ambulation Distance 0 Walking FIM Score 1. Total Assistance (Pt. < 25%, 2 or more person assist, or <50 ft.) Wheelchair Propulsion Distance 210 Wheelchair FIM Score 6. Modified [place] (Wheels a minimum of 150 ft.) Eating Eating FIM Score 5. Supervision/Set-Up (Needs help w/ containers, cutting meat, etc.) Dressing-Upper body Patient retrieves clothing No items: Patient applies/removes UE n/a prosthesis or orthosis: Upper Body Dressing FIM Score 5. Supv./Set-Up ([place] sets out clothes or applies pros./orth.) Dressing-lower body Patient retrieves clothing No items: Patient applies/removes LE n/a prosthesis or orthosis: Lower Body Dressing FIM Score 4. Minimal Assistance (Patient = 75% or more. Needs touching.) - Labs CBC & Chem 7: 06/24/19 05:08 06/23/19 14:40 Labs: Laboratory Results - last 72 hr 06/22/19 06/23/19 06/24/19 04:50 14:40 05:08 WBC 7.4 RBC 2.87 L Hgb 8.3 L Hct 25.2 L MCV 88 MCH 29 MCHC 33 RDW 14.3 Plt Count 772 H Lymph % (Auto) 21.9 Hand % (Auto) 6.5 Eos % (Auto) 2.6 Baso % (Auto) 0.7 Lymph # 1.6 Hand # 0.5 Eos # 0.2 Baso # 0.1 Seg Neutrophils % 68.3 Seg Neutrophils # 5.1 Sodium 137 137 Potassium 4.2 4.5 Chloride 101.4 100.6 Carbon Dioxide 23 22 Anion Gap 17 19 BUN 20 H 22 H Creatinine 0.6 L 0.8 Estimated GFR > 60 > 60 BUN/Creatinine Ratio 33 28 Glucose 192 H 144 H Calcium 8.5 8.7 Assessment and Plan Right hip fracture: IM nail on 06/16/2019. Continue wound care, weightbearing as tolerated, DVT prophylaxis. Pain medications have been adjusted for preparation to improve increase weightbearing activities. Monitor for any signs of injury and or possible infection. Right humerus fracture: Underwent ORIF on 06/09/2019. Continue to monitor for any signs of infection (reported dog bite) and or signs of DVT. Slight drainage and warm, cont abx , monitor Dehydration: Improved. Monitor Hypothyroidism: Continue medications monitor Depression: restarted zoloft, monitor for s/s of worsening condition. Denies SI currently. Psych consult Alcohol abuse: Restart thiamine and folic acid along with multivitamin. Patient should be out of danger for withdrawal but will monitor for any signs or symptoms of withdrawal/DTs. Anemia: started iron, vit c, folate, B12. Monitor. Appears to be post- operative blood loss. Hgb was normal on initial presentation Z73.6 ADL dysfunction: OT will work on improving ability to perform ADLs (including assistive devices) to increase independence and decrease caregiver burden and improve functional transfers and mobility training. R26.2 Difficulty walking: PT will work on gait training and proper use of assistive devices and advance as appropriate to use of stairs and outside ambulation on uneven surfaces. R26.81 Unsteadiness on feet: PT will work on improving static and dynamic sitting and standing balance as well as proper use of assistive devices to decrease risk of falls. R26.89 Abnormality of gait: PT will work to improve safety and efficiency of gait through neuromotor training and gait training along with instruction on proper use of assistive devices. M62.81 Muscle weakness: PT & OT will work on strengthening exercises to improve functional strength including mixture of closed and open kinetic chain exercises. R53.81 Debility: PT & OT will work on improving overall functional status to improve participation with ADLs, mobility and social involvement. R53.83 Fatigue: PT & OT will work on improving endurance through aerobic exercises and therapeutic activity while monitoring patients tolerance for activity and vital signs as needed. DVT ppx: Lovenox Pain: Continue physical modalities in therapy and pain medications as needed to achieve functional pain control. Medications adjusted for pain control levels considering increased weightbearing with therapy Sleep: start low dose trazodone, monitor Bowel: Monitor and address as needed. PRN medications made available Appetite: Monitor and address as needed. Discharge planning: Pending therapy progress and care plan meeting. Will continue discussion with therapy team, SW, patient and family. Restrictions/ Precautions: Falls WB status: Partial RUE/RLE. RUE hinged elbow brace with 90-45*. aROM ok Functional Hx: ADLs: Independent Cognition: Independent Mobility: No AD Barriers to Discharge: Decreased mobility and ability to perform self care, balance deficits, weakness. Will concentrate on transfers. Estimated Length of Stay: 7-14 days Discharge Destination: Home to [facility]
--- NOTE | 2019-06-24 13:22 | IRU Plan of Care ---
Interdisciplinary Plan of Care - [facility] IRU INTERDISCIPLINARY PLAN: [facility] Inpatient Rehab Unit Plan of Care IRU Interdisciplinary Care Plan Start: 06/20/19 18:11 Freq: Admission then PRN Status: Active Protocol: Document 06/21/19 15:01 MAYDA (Rec: 06/21/19 15:04 MAYDA [id number]) Interdisciplinary Problem List Interdisciplinary Problem List Interdisciplinary Problem List Impaired Eating/Swallowing, Query Text:Answers will Trigger Problems Impaired Bathing/Grooming, and Outcomes on Worklist. Impaired Dressing,Impaired Mobility,Impaired Transfers, Impaired Bladder/Bowel Management,Impaired Toileting, Pain Management,Impaired Skin/ Tissue Integrity,Impaired Home Management,Impaired Safety IRU Interdisciplinary Care Plan Therapy Services Therapy Services Will Include: Occupational Therapy Query Text:Patient will be seen for a minimum of 3 hours of daily therapy 5 out of 7 days a week. Therapy intensity may be adjusted within a 7 consecutive day period to effectively serve the individual needs of the patient. Treatment Frequency/Intensity/Duration Treatment Frequency 5xwk Treatment Intensity 1.5 hrs Treatment Duration 2wks Problem Area: Eating/Swallowing Eating/Swallowing Outcomes Eating/Swallowing Interventions Problem Area: Bathing/Grooming Bathing/Grooming Outcomes Improve [place] w/ Grooming,Improve [place] w/ Bathing Bathing/Grooming Interventions ADL Training,Use of Assistive Devices,Therapeutic Exercise, Therapeutic Activity, Neuromuscular Re-Education, Balance Work,Activity Tolerance Work,Patient/ Caregiver Education Problem Area: Dressing Dressing Outcomes Improve [place] w/ UB Dressing,Improve [place] w/ LB Dressing Dressing Interventions ADL Training,Use of Assistive Devices,Neuromuscular Re- Education,Therapeutic Exercise ,Balance Work,Modalities, Patient/Caregiver Education Problem Area: Mobility Mobility Outcomes Mobility Interventions Problem Area: Transfers Transfers Outcomes Improve [place] w/ Toilet Transfers,Improve [place] w/ Tub/Shower Transfers Transfers Interventions Transfer Training,Therapeutic Exercise,Neuromuscular Re- Education,Visual/Perceptual Training,Activity Tolerance Work,Modalities,Use of Assistive Devices,Patient/ Caregiver Education Problem Area: Bowel/Bladder Managment Bowel/Bladder Outcomes Bowel/Bladder Interventions Problem Area: Toileting Toileting Outcomes Improve [place] w/ Toileting Toileting Interventions ADL Training,Balance Work,Use of Assistive Devices,Patient/ Caregiver Education Problem Area: Nutrition Nutrition Outcomes Nutrition Interventions Problem Area: Comprehension Comprehension Outcomes Comprehension Interventions Problem Area: Expression Expression Outcomes Expression Interventions Problem Area: Problem Solving Problem Solving Outcomes Problem Solving Interventions Problem Area: Memory Memory Outcomes Memory Interventions Problem Area: Pain Management Pain Management Outcomes Pain Management Interventions Problem Area: Knowledge Deficits Knowledge Deficits Outcomes Knowledge Deficits Interventions Problem Area: Skin/Tissue Integrity Skin/Tissue Integrity Outcomes Skin/Tissue Integrity Interventions Problem Area: Social Interaction Social Interaction Outcomes Social Interaction Interventions Problem Area: Adjustment to Disability Adjustment to Disability Outcomes Adjustment to Disability Interventions Problem Area: Discharge Concerns Discharge Concerns Outcomes Discharge Concerns Interventions Problem Area: Community Reintegration Community Reintegration Outcomes Community Reintegration Interventions Problem Area: Home Management Home Management Outcomes Improve [place] w/ Home Management Home Management Interventions Meal Preparation,Clothing Care ,Activity Tolerance Work, Patient/Caregiver Education Problem Area: Safety Safety Outcomes Provide Safe Environment, Perform Selfcare Safely, Demonstrate Good Safety w/ Transfers/Mobility Safety Interventions Identify Fall Risk,[place] Pt. to Environment,Reduce Environmental Hazards,Neuro Check Assessment,Implement Mechanical Devices, i.e. Chair Alarm (Post Fall Update),Re- Educate Patient/Caregiver for Safety (Post Fall Update) Problem Area: Medication Education Medication Education Outcomes Medication Education Interventions Problem Area: Diabetes Education Diabetes Education Outcomes Diabetes Education Interventions Problem Area: Oxygenation Oxygenation Outcomes Oxygenation Interventions Problem Area: Cardiovascular Cardiovascular Outcomes Cardiovascular Interventions Physician Only Medical Prognosis and Rehabilitation Fair prognosis. Good rehabilitation potential. Requires encouragement to participate. Slight skin infection at RUE. Needs psych consult. Potential (Completed by Physician) This plan of care has been developed based on the findings from the pre-admiss ion assessment, post admission physician evaluation, information gathered from the assessments from all therapy disciplines and other pertinent clinicians. The plan of care has been reviewed and discussed in collaboration with the interdisciplinary team. The plan of care will be reviewed and updated at least weekly.
--- NOTE | 2019-06-24 14:21 | IRU Plan of Care ---
Interdisciplinary Plan of Care - [facility] IRU INTERDISCIPLINARY PLAN: [facility] Inpatient Rehab Unit Plan of Care IRU Interdisciplinary Care Plan Start: 06/20/19 18:11 Freq: Admission then PRN Status: Active Protocol: Document 06/24/19 13:58 TH (Rec: 06/24/19 14:01 TH [id number]) Interdisciplinary Problem List Interdisciplinary Problem List Interdisciplinary Problem List Impaired Eating/Swallowing, Query Text:Answers will Trigger Problems Impaired Bathing/Grooming, and Outcomes on Worklist. Impaired Dressing,Impaired Mobility,Impaired Transfers, Impaired Bladder/Bowel Management,Impaired Toileting, Pain Management,Impaired Skin/ Tissue Integrity,Impaired Home Management,Impaired Safety IRU Interdisciplinary Care Plan Therapy Services Therapy Services Will Include: Physical Therapy,Occupational Query Text:Patient will be seen for a Therapy minimum of 3 hours of daily therapy 5 out of 7 days a week. Therapy intensity may be adjusted within a 7 consecutive day period to effectively serve the individual needs of the patient. Treatment Frequency/Intensity/Duration Treatment Frequency 5xwk/week Treatment Intensity 3 hours per day Treatment Duration 7-14 days Problem Area: Eating/Swallowing Eating/Swallowing Outcomes Eating/Swallowing Interventions Problem Area: Bathing/Grooming Bathing/Grooming Outcomes Improve [place] w/ Grooming,Improve [place] w/ Bathing Bathing/Grooming Interventions ADL Training,Use of Assistive Devices,Therapeutic Exercise, Therapeutic Activity, Neuromuscular Re-Education, Balance Work,Activity Tolerance Work,Patient/ Caregiver Education Problem Area: Dressing Dressing Outcomes Improve [place] w/ UB Dressing,Improve [place] w/ LB Dressing Dressing Interventions ADL Training,Use of Assistive Devices,Neuromuscular Re- Education,Therapeutic Exercise ,Balance Work,Modalities, Patient/Caregiver Education Problem Area: Mobility Mobility Outcomes Improve [place] w/ Bed Mobility,Improve [place] w/ Ambulation,Improve [place] w/ Stairs/Curb, Improve [place] w/ Wheelchair Mobility Interventions Therapeutic Exercise, Neuromuscular Re-Ed.,Activity Tolerance Work,Use of Assistive Devices,Patient/ Caregiver Education,Bed Mobility Work,Gait Training,W/ C Mobility Work Problem Area: Transfers Transfers Outcomes Improve [place] w/ Toilet Transfers,Improve [place] w/ Tub/Shower Transfers Transfers Interventions Transfer Training,Therapeutic Exercise,Neuromuscular Re- Education,Visual/Perceptual Training,Activity Tolerance Work,Modalities,Use of Assistive Devices,Patient/ Caregiver Education Problem Area: Bowel/Bladder Managment Bowel/Bladder Outcomes Bowel/Bladder Interventions Problem Area: Toileting Toileting Outcomes Improve [place] w/ Toileting Toileting Interventions ADL Training,Balance Work,Use of Assistive Devices,Patient/ Caregiver Education Problem Area: Nutrition Nutrition Outcomes Nutrition Interventions Problem Area: Comprehension Comprehension Outcomes Comprehension Interventions Problem Area: Expression Expression Outcomes Expression Interventions Problem Area: Problem Solving Problem Solving Outcomes Problem Solving Interventions Problem Area: Memory Memory Outcomes Memory Interventions Problem Area: Pain Management Pain Management Outcomes Demonstrate/Verbalize Pain Strategies Pain Management Interventions Medication Management,Patient/ Caregiver Education Problem Area: Knowledge Deficits Knowledge Deficits Outcomes Knowledge Deficits Interventions Problem Area: Skin/Tissue Integrity Skin/Tissue Integrity Outcomes Skin/Tissue Integrity Interventions Problem Area: Social Interaction Social Interaction Outcomes Social Interaction Interventions Problem Area: Adjustment to Disability Adjustment to Disability Outcomes Adjustment to Disability Interventions Problem Area: Discharge Concerns Discharge Concerns Outcomes Discharge Concerns Interventions Problem Area: Community Reintegration Community Reintegration Outcomes Community Reintegration Interventions Problem Area: Home Management Home Management Outcomes Improve [place] w/ Home Management Home Management Interventions Meal Preparation,Clothing Care ,Activity Tolerance Work, Patient/Caregiver Education Problem Area: Safety Safety Outcomes Provide Safe Environment, Perform Selfcare Safely, Demonstrate Good Safety w/ Transfers/Mobility Safety Interventions Identify Fall Risk,[place] Pt. to Environment,Reduce Environmental Hazards,Neuro Check Assessment,Implement Mechanical Devices, i.e. Chair Alarm (Post Fall Update),Re- Educate Patient/Caregiver for Safety (Post Fall Update) Problem Area: Medication Education Medication Education Outcomes Patient/Caregiver will Verbalize Understanding of Medications Medication Education Interventions Explain Administration/Side Effects/Interactions Problem Area: Diabetes Education Diabetes Education Outcomes Diabetes Education Interventions Problem Area: Oxygenation Oxygenation Outcomes Oxygenation Interventions Problem Area: Cardiovascular Cardiovascular Outcomes Maintain or Improve Cardiovascular Status Cardiovascular Interventions Assess Vital Signs at least Every 4 hours Physician Only Medical Prognosis and Rehabilitation Fair prognosis. Good rehabilitation potential. Requires encouragement to participate. Slight skin infection at RUE. Needs psych consult. Potential (Completed by Physician) This plan of care has been developed based on the findings from the pre- admission assessment, post admission physician evaluation, information gathered from the assessments from all therapy disciplines and other pertinent clinicians. The plan of care has been reviewed and discussed in collaboration with the interdisciplinary team. The plan of care will be reviewed and updated at least weekly.
[2019-06-24] MEDS: ROXICODONE PO PRN (21:08)
[2019-06-24] MEDS: DESYREL PO SCH (21:09)
[2019-06-25] MEDS: SYNTHROID PO SCH (05:08)
[2019-06-25] MEDS: PEPCID PO SCH ×2 (09:35→22:12)
[2019-06-25] MEDS: LOVENOX SUB-Q SCH (09:35)
[2019-06-25] MEDS: LEVAQUIN PO SCH (09:35)
[2019-06-25] MEDS: ZOLOFT PO SCH (09:36)
[2019-06-25] MEDS: VITAMIN B-12 PO SCH (09:36)
[2019-06-25] MEDS: FEOSOL PO SCH ×2 (09:36→22:12)
[2019-06-25] MEDS: VITAMIN C PO SCH ×2 (09:36→22:12)
[2019-06-25] MEDS: FOLVITE PO SCH (09:36)
[2019-06-25] MEDS: VITAMIN B-1 PO SCH (09:36)
[2019-06-25] MEDS: NACL 0.9% 1000 ML 1,000 ML IV SCH ×2 (15:17→22:13)
[2019-06-25] MEDS: DESYREL PO SCH (22:12)
[2019-06-26] MEDS: SYNTHROID PO SCH (06:11)
[2019-06-26 08:04] LABS: Hematocrit 28.2 % (30.3-42.9); Hemoglobin 9.2 gm/dl (10.1-14.3); Mean Corpuscular HGB Conc 33 % (30-34); Mean Corpuscular Volume 88 fl (79-97); Platelet Count 869 K/mm3 (140-440); Red Blood Count 3.22 M/mm3 (3.65-5.03); Red Cell Distribution Width 14.8 % (13.2-15.2)
[2019-06-26 08:23] LABS: BUN/Creatinine Ratio 28; Blood Urea Nitrogen 17 mg/dL (7-17); Calcium 8.8 mg/dL (8.4-10.2); Hemolysis Index 94
[2019-06-26] MEDS: FEOSOL PO SCH ×2 (08:51→21:51)
[2019-06-26] MEDS: VITAMIN C PO SCH ×2 (08:51→21:52)
[2019-06-26] MEDS: PEPCID PO SCH ×2 (08:51→21:51)
[2019-06-26] MEDS: LEVAQUIN PO SCH ×2 (08:51→09:00)
[2019-06-26] MEDS: ZOLOFT PO SCH (08:51)
[2019-06-26] MEDS: VITAMIN B-1 PO SCH (08:51)
[2019-06-26] MEDS: LOVENOX SUB-Q SCH (08:51)
[2019-06-26] MEDS: VITAMIN B-12 PO SCH (08:51)
[2019-06-26] MEDS: FOLVITE PO SCH (08:51)
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
--- NOTE | 2019-06-26 12:25 | XRay Report ---
Examination: Right humerus, 2 views, 06/26/2019 Clinical information: History of fall. Trauma. Comparison: Right forearm radiograph, 06/07/2019 Findings: There has been interval surgical stabilization of the right elbow with associated soft tiss ue swelling. No new fracture is clearly identified. Signer Name: Macey Sun MD Signed: 06/26/2019 12:21 PM Workstation Name: [id number]
--- NOTE | 2019-06-26 12:41 | XRay Report ---
HISTORY: Fall COMPARISON: None. TECHNIQUE: 2 FINDINGS: Bones: Evidence of previous right hip nailing. No fracture or dislocation. Joint spaces: Maintained. Soft tissues: No significant abnormality. Additional findings: None. IMPRESSION: 1. No significant abnormality. Signer Name: Sudhakar Galvez MD Signed: 06/26/2019 12:37 PM Workstation Name: [id number]
[2019-06-26] MEDS: ROXICODONE PO PRN ×2 (16:29→21:52)
[2019-06-26] MEDS: DESYREL PO SCH (21:51)
[2019-06-27] MEDS: SYNTHROID PO SCH (06:42)
[2019-06-27] MEDS ORDERED: NACL 0.9% 1000 ML 1,000 ML IV ONE (08:30)
[2019-06-27] MEDS: LEVAQUIN PO SCH ×2 (08:34)
[2019-06-27] MEDS: PEPCID PO SCH ×2 (08:35→22:04)
[2019-06-27] MEDS: VITAMIN B-1 PO SCH (08:35)
[2019-06-27] MEDS: LOVENOX SUB-Q SCH (08:35)
[2019-06-27] MEDS: ZOLOFT PO SCH (08:35)
[2019-06-27] MEDS: VITAMIN C PO SCH ×2 (08:35→22:04)
[2019-06-27] MEDS: VITAMIN B-12 PO SCH (08:35)
[2019-06-27] MEDS: FEOSOL PO SCH ×2 (08:35→22:04)
[2019-06-27] MEDS: FOLVITE PO SCH (08:36)
--- NOTE | 2019-06-27 11:39 | Progress Note ---
Subjective Date of service: 06/27/19 Principal diagnosis: R hip fracture Interval history: 63-year-old female who was recently discharged after a right humerus fracture and presented back to the ER one day later with pain in the right hip. X-ray showed a right intertrochanteric hip fracture. Ortho was consulted and she was taken for surgery and received an IM nail. She was placed on CINV protocol for alcohol abuse. She is anemic and this appears to be a combination of both chronic disease as well as postoperative. Electrolytes were monitored and replaced as needed. She does have cognitive issues which may be related to either dementia and or alcohol abuse. On exam patient appears to be depressed and is currently refusing further treatment. Does have a history of bipolar disorder noted in the record without any treatment apparently. We'll attempt to determine what medications she's been on in the past and her restart medications as needed. Also history of EtOH dependence which she has downplayed. Patient is in bed in a dark room. Appears depressed. Slowed interaction. Patient is participating in therapy and making slow progress. Needs encouragement, decreased initiation. Discussed need to participate so she can return home. Called this weekend after a fall while attempting to go to bathroom by herself. Discussed calling for assistance. Denies any pain. No in juries noted. XR of right hip and humerus are NEG. Attempting to refuse therapy again today and after discussion finally agreed. Explained alternative would be to discharge to SNF if she refuses. Taking rest breaks as needed. +BM. Denies palpitations, dyspnea, cough, N/V. Pain in RLE better with medications. Poor overall nutrition and not eating well, likely depression related. Discussed need for nutrition in order to heal. RUE wound warm without drainage. Continue abx (last day), keep dressed and monitor. Will move to discharge as soon as possible (next couple of days likely) once she is performing transfers. Patient stated she would participate before we accepted and is now need excessive encouragement to continue therapy. Seen by mental health. Medications increased. Will monitor. All records, vitals, labs and medications were reviewed. No other issues per patient, nursing or therapy. Objective - Exam Narrative Exam: MUSCULOSKELETAL SPECIALTY EXAM CONSTITUTIONAL: Well developed, appropriately groomed, somewhat cooperative EENT: EOMI. Hearing intact to soft voice RESPIRATORY: Clear to auscultation bilaterally, no increased work of breathing CARDIOVASCULAR: Regular Rate/ Rhythm. Slight swelling in RUE otherwise no swelling, edema or tenderness in BUE or BLE. All extremities warm. GI: + bowel sounds, soft, NTTP, nondistended. INTEGUMENTARY: Wound on right upper extremity, warm without drainage and surgical wound on right lower extremity otherwise, Normal, no lesion, rash, masses or bruising noted in extremities. MUSCULOSKELETAL: LUE and LLE normal without defect, crepitus, subluxation, effusion, arthritic changes or TTP. Right upper extremity with fracture s/p ORIF, wound. Right lower extremity with hip fracture has been repaired, wound. LUE 4+/5, good ROM, with normal tone. Right upper extremity decreased range of motion with inability to test strength due to fracture. LLE 4+/5 good ROM, with normal tone. Right lower extremity decreased range of motion due to pain, tolerates some weightbearing with pain. Less than 3/5. NEURO: CN 2-12 grossly intact. Sensation intact in all extremities. No tremor noted in 4 extremities. POSTURE and GAIT: Sitting posture good. Balance appears reasonable. Gait deferred until seen with therapy. PSYCH: Alert, orientated x3, affect flattened. Insight appears intact so far, will monitor. - Constitutional Vitals: Vital Signs - 12hr 06/27/19 06/27/19 07:09 07:45 Temperature 36.7 C 37.0 C Pulse Rate 72 Respiratory 20 Rate Blood Pressure 84/35 O2 Sat by Pulse 95 Oximetry - Allied health notes Allied health notes reviewed: nursing, PT, OT FIMS assessment as documented by PT/OT/ST: Grooming Patient cleans teeth/dentures: Yes Patient benson/brushes hair: Yes Patient washes, rinses and Yes dries face: Patient washes, rinses and Yes dries hands: Patient applies make-up: No Patient performs (no make-up/ 03/03 (100%) shaving): Grooming FIM Score 5. Supervision ([place] applies toothpaste or opens containers.) Toileting Toileting Device Bedpan Toileting FIM Score 2. Maximal Assistance (Patient = 25% or more) Social interaction/Memory/Problem solving Social Interaction FIM Score 5. Supervision (Needs supv. <10%. Needs encouragement to participate.) Memory FIM Score 5. Supervision (Needs cueing <10%, stressful/ unfamiliar situations.) Problem Solving FIM Score 5. Supervision (Needs cueing <10% to solve routine problems.) Transfers Mode of Locomotion: Wheelchair Bed/Chair/Wheelchair Transfers 3. Moderate Assistance (Patient = 50% or more. FIM Score Some lifting.) Toilet Transfers FIM Score 3. Moderate Assistance (Patient = 50% or more. Some lifting.) Patient transferred to: Shower Shower Transfers FIM Score 3. Moderate Assistance (Patient = 50% or more. Some lifting.) Locomotion- walk/wheelchair Most Frequent Mode of Wheelchair Locomotion: Ambulation Distance 0 Walking FIM Score 0. Activity does not occur Wheelchair Propulsion Distance 600 Wheelchair FIM Score 6. Modified Tripp (Wheels a minimum of 150 ft.) Eating Eating FIM Score 5. Supervision/Set-Up (Needs help w/ containers, cutting meat, etc.) Dressing-Upper body Patient retrieves clothing No items: Patient applies/removes UE n/a prosthesis or orthosis: Upper Body Dressing FIM Score 5. Supv./Set-Up ([place] sets out clothes or applies pros./orth.) Dressing-lower body Patient retrieves clothing No items: Patient applies/removes LE n/a prosthesis or orthosis: Lower Body Dressing FIM Score 4. Minimal Assistance (Patient = 75% or more. Needs touching.) - Labs CBC & Chem 7: 06/26/19 07:35 06/26/19 07:35 Labs: Laboratory Results - last 72 hr 06/25/19 06/26/19 06/26/19 13:08 07:35 07:35 WBC 7.4 RBC 3.22 L Hgb 9.2 L Hct 28.2 L MCV 88 MCH 28 MCHC 33 RDW 14.8 Plt Count 869 H Sodium 139 Potassium 4.9 Chloride 104.3 Carbon Dioxide 24 Anion Gap 16 BUN 17 Creatinine 0.6 L Estimated GFR > 60 BUN/Creatinine Ratio 28 Glucose 120 H POC Glucose 94 Calcium 8.8 Assessment and Plan Right hip fracture: IM nail on 06/16/2019. Continue wound care, partial weightbearing, DVT prophylaxis. Pain medications have been adjusted for preparation to improve increase weightbearing activities. Monitor for any signs of injury and or possible infection. Right humerus fracture: Underwent ORIF on 06/09/2019. Continue to monitor for any signs of infection (reported dog bite) and or signs of DVT. Slight drainage and warm, cont abx , monitor Dehydration: Improved. Monitor Hypothyroidism: Continue medications monitor Depression: restarted zoloft, monitor for s/s of worsening condition. Denies SI currently. Psych consult Alcohol abuse: Restart thiamine and folic acid along with multivitamin. Patient should be out of danger for withdrawal but will monitor for any signs or symptoms of withdrawal/DTs. Anemia: started iron, vit c, folate, B12. Monitor. Appears to be post- operative blood loss. Hgb was normal on initial presentation Z73.6 ADL dysfunction: OT will work on improving ability to perform ADLs (including assistive devices) to increase independence and decrease caregiver burden and improve functional transfers and mobility training. R26.2 Difficulty walking: PT will work on gait training and proper use of assistive devices and advance as appropriate to use of stairs and outside ambulation on uneven surfaces. R26.81 Unsteadiness on feet: PT will work on improving static and dynamic sitting and standing balance as well as proper use of assistive devices to decrease risk of falls. R26.89 Abnormality of gait: PT will work to improve safety and efficiency of gait through neuromotor training and gait training along with instruction on proper use of assistive devices. M62.81 Muscle weakness: PT & OT will work on strengthening exercises to improve functional strength including mixture of closed and open kinetic chain exercises. R53.81 Debility: PT & OT will work on improving overall functional status to improve participation with ADLs, mobility and social involvement. R53.83 Fatigue: PT & OT will work on improving endurance through aerobic exercises and therapeutic activity while monitoring patients tolerance for activity and vital signs as needed. DVT ppx: Lovenox Pain: Continue physical modalities in therapy and pain medications as needed to achieve functional pain control. Medications adjusted for pain control levels considering increased weightbearing with therapy Sleep: start low dose trazodone, monitor Bowel: Monitor and address as needed. PRN medications made available Appetite: Monitor and address as needed. Discharge planning: Pending therapy progress and care plan meeting. Will continue discussion with therapy team, SW, patient and family. Restrictions/ Precautions: Falls WB status: Partial RUE/RLE. RUE hinged elbow brace with 90-45*. aROM ok Functional Hx: ADLs: Independent Cognition: Independent Mobility: No AD Barriers to Discharge: Decreased mobility and ability to perform self care, balance deficits, weakness. Will concentrate on transfers. Estimated Length of Stay: 7-14 days Discharge Destination: Home to [facility]
--- NOTE | 2019-06-27 13:59 | Progress Note ---
Subjective - Reason for Consult Consult date: 06/27/19 Reason for consult: Psychiatry follow-up - Chief Complaint Chief complaint: "Can you come back tomorrow" 63 year old female who was recently discharged from [facility] after a right humerus fracture and presented back to the ER one day later with pain in the right hip. Today the patient calm, but asked to be seen tomorrow. She stated, 'I prefer to talk tomorrow." No gestures of SI/HI's. Mental Status Exam - Vital signs Last Vital Signs Temp 98.7 F 06/27/19 11:50 Pulse 77 06/27/19 11:50 Resp 20 06/27/19 11:50 BP 103/46 06/27/19 11:50 Pulse Ox 95 06/27/19 11:50 - Exam Narrative exam: Unable to complete the MSE because the patient asked to be seen tomorrow. Assessment and Plan Impression: MDD per initial consult with the patient. Today the patient calm, but asked to be seen tomorrow. . Recommendation/Plan: Continue Zoloft 100 mg PO daily for depression and Trazodone 100 mg PO HS for insomnia Will staff with Dr. Abrahan Chan.
[2019-06-27] MEDS: DESYREL PO SCH (22:04)
[2019-06-28] MEDS: SYNTHROID PO SCH (05:05)
[2019-06-28 07:14] LABS: Hematocrit 28.4 % (30.3-42.9); Hemoglobin 9.7 gm/dl (10.1-14.3); Mean Corpuscular HGB Conc 34 % (30-34); Mean Corpuscular Volume 87 fl (79-97); Platelet Count 779 K/mm3 (140-440); Red Blood Count 3.26 M/mm3 (3.65-5.03)
[2019-06-28 07:26] LABS: BUN/Creatinine Ratio 38; Blood Urea Nitrogen 19 mg/dL (7-17); Calcium 9.1 mg/dL (8.4-10.2)
[2019-06-28 07:27] LABS: Hemolysis Index 3
[2019-06-28] MEDS: VITAMIN B-12 PO SCH (07:40)
[2019-06-28] MEDS: LOVENOX SUB-Q SCH (07:40)
[2019-06-28] MEDS: ZOLOFT PO SCH (07:40)
[2019-06-28] MEDS: VITAMIN C PO SCH ×2 (07:40→21:00)
[2019-06-28] MEDS: PEPCID PO SCH ×2 (07:40→21:00)
[2019-06-28] MEDS: FEOSOL PO SCH ×2 (07:40→21:00)
[2019-06-28] MEDS: FOLVITE PO SCH (07:40)
[2019-06-28] MEDS: VITAMIN B-1 PO SCH (07:40)
--- NOTE | 2019-06-28 08:57 | Progress Note ---
Subjective - Reason for Consult Consult date: 06/28/19 Reason for consult: Psychiatry Follow-up - Chief Complaint Chief complaint: "I'm well, just in pain" 63 year old female who was recently discharged from [facility] after a right humerus fracture and presented back to the ER one day later with pain in the right hip. Today the patient calm and cooperative during the assessment. She stated that she didn't want to talk yesterday because she was experiencing pain in her hip. She stated that she feel a little better this morning. She had good eye contact throughout the interview. She rate her depression 3/10, with 10 being the worse. She stated, "I am always somewhat depressed." She requested a referral for a psychiatrist in her local area. She denies SI/HI's and AVH's. She denies any side effects of her medications. Mental Status Exam - Vital signs Last Vital Signs Temp 97.0 F L 06/28/19 07:29 Pulse 74 06/28/19 07:29 Resp 16 06/28/19 07:29 BP 103/41 06/28/19 07:29 Pulse Ox 94 06/28/19 07:29 - Exam Narrative exam: MSE: Appearance: calm, cooperative Behavior: regular eye contact Speech: somewhat hyper verbal Mood: "okay" Affect: congruent to mood Thought Process: logical Thought Content: denies SI/HI's and AVH's Motor Activity: sitting up in bed Cognition: A/O x3 Insight: fair Judgment: fair Assessment and Plan Impression: MDD per initial consult with the patient. Today the patient calm and cooperative during the assessment. . Recommendation/Plan: Continue Zoloft 100 mg PO daily for depression and Trazodone 100 mg PO HS for insomnia Discussed possible suicidality/medication induced lorenzo with the patient reference antidepressants, she verbalized understanding. Psy sign off. Dispo: The patient can follow up with [facility] for outpatient psy services. Will staff with Dr. Abrahan Chan.
[2019-06-28] MEDS: ROXICODONE PO PRN (13:57)
[2019-06-28] MEDS: DESYREL PO SCH (21:00)
--- NOTE | 2019-06-28 21:02 | Progress Note ---
Subjective Date of service: 06/28/19 Principal diagnosis: R hip fracture Interval history: 63-year-old female who was recently discharged after a right humerus fracture and presented back to the ER one day later with pain in the right hip. X-ray showed a right intertrochanteric hip fracture. Ortho was consulted and she was taken for surgery and received an IM nail. She was placed on CIWA protocol for alcohol abuse. She is anemic and this appears to be a combination of both chronic disease as well as postoperative. Electrolytes were monitored and replaced as needed. She does have cognitive issues which may be related to either dementia and or alcohol abuse. On exam patient appears to be depressed and is currently refusing further treatment. Does have a history of bipolar disorder noted in the record without any treatment apparently. We'll attempt to determine what medications she's been on in the past and her restart medications as needed. Also history of EtOH dependence which she has downplayed. Improved participation and outlook by patient. Patient is participating in therapy and making slow progress. Needs encouragement, improved initiation. Discussed need to participate so she can return home. Completely different today! Participated with therapy and made progress. Congratulated patient and offered to keep working with her until she meets goals if she maintains her participation. Taking rest breaks as needed. +BM. Denies palpitations, dyspnea, cough, N/V. Pain in RLE better with medications. Poor overall nutrition and not eating well, likely depression related. Discussed need for nutrition in order to heal. RUE wound warm without drainage. Will move to discharge as soon as she is performing transfers. All records, vitals, labs and medications were reviewed. No other issues per patient, nursing or therapy. Objective - Exam Narrative Exam: MUSCULOSKELETAL SPECIALTY EXAM CONSTITUTIONAL: Well developed, appropriately groomed, somewhat cooperative EENT: EOMI. Hearing intact to soft voice RESPIRATORY: Clear to auscultation bilaterally, no increased work of breathing CARDIOVASCULAR: Regular Rate/ Rhythm. Slight swelling in RUE otherwise no swelling, edema or tenderness in BUE or BLE. All extremities warm. GI: + bowel sounds, soft, NTTP, nondistended. INTEGUMENTARY: Wound on right upper extremity, warm without drainage and surgical wound on right lower extremity otherwise, Normal, no lesion, rash, masses or bruising noted in extremities. MUSCULOSKELETAL: LUE and LLE normal without defect, crepitus, subluxation, effusion, arthritic changes or TTP. Right upper extremity with fracture s/p ORIF, wound. Right lower extremity with hip fracture has been repaired, wound. LUE 4+/5, good ROM, with normal tone. Right upper extremity decreased range of motion with inability to test strength due to fracture. LLE 4+/5 good ROM, with normal tone. Right lower extremity decreased range of motion due to pain, tolerates some weightbearing with pain. Less than 3/5. NEURO: CN 2-12 grossly intact. Sensation intact in all extremities. No tremor noted in 4 extremities. POSTURE and GAIT: Sitting posture good. Balance appears reasonable. Gait deferred until seen with therapy. PSYCH: Alert, orientated x3, affect improved. Insight appears intact so far, will monitor. - Constitutional Vitals: Vital Signs - 12hr 06/28/19 06/28/19 06/28/19 11:53 15:29 20:12 Temperature 36.4 C L 37.0 C 36.8 C Pulse Rate 82 75 76 Respiratory 18 16 17 Rate Blood Pressure 100/49 102/50 Blood Pressure 111/41 [Left] O2 Sat by Pulse 98 96 97 Oximetry - Allied health notes Allied health notes reviewed: nursing, PT, OT FIMS assessment as documented by PT/OT/ST: Grooming Patient cleans teeth/dentures: Yes: S/U Patient benson/brushes hair: Yes: S/U Patient washes, rinses and Yes: S/U dries face: Patient washes, rinses and Yes: S/U dries hands: Patient applies make-up: No Patient performs (no make-up/ 03/03 (100%) shaving): Grooming FIM Score 5. Supervision ([place] applies toothpaste or opens containers.) Toileting Toileting Device Bedpan Toileting FIM Score 2. Maximal Assistance (Patient = 25% or more) Social interaction/Memory/Problem solving Social Interaction FIM Score 3. Moderate Assistance (Interacts appropriately 50-74%.) Memory FIM Score 4. Minimal Assistance (Recognizes and remembers 75-90%.) Problem Solving FIM Score 3. Moderate Assistance (Solves routine problems 50-74%.) Transfers Mode of Locomotion: Wheelchair Bed/Chair/Wheelchair Transfers 4. Minimal Assistance (Patient = 75% or more. FIM Score Needs touching.) Toilet Transfers FIM Score 4. Minimal Assistance (Patient = 75% or more. Needs touching.) Patient transferred to: Shower Shower Transfers FIM Score 3. Moderate Assistance (Patient = 50% or more. Some lifting.) Locomotion- walk/wheelchair Most Frequent Mode of Wheelchair Locomotion: Ambulation Distance 0 Walking FIM Score 0. Activity does not occur Wheelchair Propulsion Distance 150 Wheelchair FIM Score 4. Minimal Assistance (Patient = 75% or more. Minimum of 150 ft.) Eating Eating FIM Score 3. Moderate Assistance (Patient = 50% or more) Dressing-Upper body Patient retrieves clothing No items: Patient applies/removes UE n/a prosthesis or orthosis: Upper Body Dressing FIM Score 5. Supv./Set-Up ([place] sets out clothes or applies pros./orth.) Dressing-lower body Patient retrieves clothing No items: Patient applies/removes LE n/a prosthesis or orthosis: Lower Body Dressing FIM Score 3. Moderate Assistance (Patient = 50% or more) - Labs CBC & Chem 7: 06/28/19 06:52 06/28/19 06:52 Labs: Laboratory Results - last 72 hr 06/26/19 06/26/19 06/28/19 07:35 07:35 06:52 WBC 7.4 7.1 RBC 3.22 L 3.26 L Hgb 9.2 L 9.7 L Hct 28.2 L 28.4 L MCV 88 87 MCH 28 30 MCHC 33 34 RDW 14.8 15.0 Plt Count 869 H 779 H Sodium 139 Potassium 4.9 Chloride 104.3 Carbon Dioxide 24 Anion Gap 16 BUN 17 Creatinine 0.6 L Estimated GFR > 60 BUN/Creatinine Ratio 28 Glucose 120 H Calcium 8.8 06/28/19 06:52 WBC RBC Hgb Hct MCV MCH MCHC RDW Plt Count Sodium 140 Potassium 4.4 Chloride 103.3 Carbon Dioxide 26 Anion Gap 15 BUN 19 H Creatinine 0.5 L Estimated GFR > 60 BUN/Creatinine Ratio 38 Glucose 120 H Calcium 9.1 Assessment and Plan Right hip fracture: IM nail on 06/16/2019. Continue wound care, partial w eightbearing, DVT prophylaxis. Pain medications have been adjusted for preparation to improve increase weightbearing activities. Monitor for any signs of injury and or possible infection. Right humerus fracture: Underwent ORIF on 06/09/2019. Continue to monitor for any signs of infection (reported dog bite) and or signs of DVT. monitor Dehydration: Improved. Monitor Hypothyroidism: Continue medications monitor Depression: restarted zoloft, monitor for s/s of worsening condition. Denies SI currently. Psych consult obtained Alcohol abuse: Restart thiamine and folic acid along with multivitamin. Patient should be out of danger for withdrawal but will monitor for any signs or symptoms of withdrawal/DTs. Anemia: started iron, vit c, folate, B12. Monitor. Appears to be post- operative blood loss. Hgb was normal on initial presentation Z73.6 ADL dysfunction: OT will work on improving ability to perform ADLs (including assistive devices) to increase independence and decrease caregiver burden and improve functional transfers and mobility training. R26.2 Difficulty walking: PT will work on gait training and proper use of assistive devices and advance as appropriate to use of stairs and outside ambulation on uneven surfaces. R26.81 Unsteadiness on feet: PT will work on improving static and dynamic sitting and standing balance as well as proper use of assistive devices to decrease risk of falls. R26.89 Abnormality of gait: PT will work to improve safety and efficiency of gait through neuromotor training and gait training along with instruction on proper use of assistive devices. M62.81 Muscle weakness: PT & OT will work on strengthening exercises to improve functional strength including mixture of closed and open kinetic chain exercises. R53.81 Debility: PT & OT will work on improving overall functional status to improve participation with ADLs, mobility and social involvement. R53.83 Fatigue: PT & OT will work on improving endurance through aerobic exercises and therapeutic activity while monitoring patients tolerance for activity and vital signs as needed. DVT ppx: Lovenox Pain: Continue physical modalities in therapy and pain medications as needed to achieve functional pain control. Medications adjusted for pain control levels considering increased weightbearing with therapy Sleep: start low dose trazodone, monitor Bowel: Monitor and address as needed. PRN medications made available Appetite: Monitor and address as needed. Discharge planning: Pending therapy progress and care plan meeting. Will continue discussion with therapy team, SW, patient and family. Restrictions/ Precautions: Falls WB status: Partial RUE/RLE. RUE hinged elbow brace with 90-45*. aROM ok Functional Hx: ADLs: Independent Cognition: Independent Mobility: No AD Barriers to Discharge: Decreased mobility and ability to perform self care, balance deficits, weakness. Will concentrate on transfers. Estimated Length of Stay: 7-14 days Discharge Destination: Home to [facility]
[2019-06-29] MEDS: SYNTHROID PO SCH (05:06)
[2019-06-29] MEDS: PEPCID PO SCH ×2 (08:58→21:12)
[2019-06-29] MEDS: VITAMIN B-1 PO SCH (08:58)
[2019-06-29] MEDS: FOLVITE PO SCH (08:58)
[2019-06-29] MEDS: VITAMIN B-12 PO SCH (08:58)
[2019-06-29] MEDS: ZOLOFT PO SCH (08:58)
[2019-06-29] MEDS: LOVENOX SUB-Q SCH (08:59)
[2019-06-29] MEDS: VITAMIN C PO SCH ×2 (08:59→21:12)
[2019-06-29] MEDS: FEOSOL PO SCH ×2 (08:59→21:12)
--- NOTE | 2019-06-29 09:19 | Progress Note ---
Subjective Date of service: 06/29/19 Principal diagnosis: R hip fracture Interval history: 63-year-old female who was recently discharged after a right humerus fracture and presented back to the ER one day later with pain in the right hip. X-ray showed a right intertrochanteric hip fracture. Ortho was consulted and she was taken for surgery and received an IM nail. She was placed on CIWA protocol for alcohol abuse. She is anemic and this appears to be a combination of both chronic disease as well as postoperative. Electrolytes were monitored and replaced as needed. She does have cognitive issues which may be related to either dementia and or alcohol abuse. On exam patient appears to be depressed and is currently refusing further treatment. Does have a history of bipolar disorder noted in the record without any treatment apparently. We'll attempt to determine what medications she's been on in the past and her restart medications as needed. Also history of EtOH dependence which she has downplayed. Had to spend 20 mins convincing patient to participate with therapy today. Self limiting attitude. Patient is participating in therapy and making slow progress. Needs encouragement, improved initiation at times. Discussed need to participate so she can return home. Taking rest breaks as needed. +BM. Denies palpitations, dyspnea, cough, N/V. Pain in RLE better with medications. Poor overall nutrition and not eating well, likely depression related. Discussed need for nutrition in order to heal. RUE wound warm without drainage. Will move to discharge as soon as she is performing transfers. All records, vitals, labs and medications were reviewed. No other issues per patient, nursing or therapy. Objective - Exam Narrative Exam: MUSCULOSKELETAL SPECIALTY EXAM CONSTITUTIONAL: Well developed, appropriately groomed, somewhat cooperative EENT: EOMI. Hearing intact to soft voice RESPIRATORY: Clear to auscultation bilaterally, no increased work of breathing CARDIOVASCULAR: Regular Rate/ Rhythm. Slight swelling in RUE otherwise no swelling, edema or tenderness in BUE or BLE. All extremities warm. GI: + bowel sounds, soft, NTTP, nondistended. INTEGUMENTARY: Wound on right upper extremity, warm without drainage and surgical wound on right lower extremity otherwise, Normal, no lesion, rash, masses or bruising noted in extremities. MUSCULOSKELETAL: LUE and LLE normal without defect, crepitus, subluxation, effusion, arthritic changes or TTP. Right upper extremity with fracture s/p ORIF, wound. Right lower extremity with hip fracture has been repaired, wound. LUE 4+/5, good ROM, with normal tone. Right upper extremity decreased range of motion with inability to test strength due to fracture. LLE 4+/5 good ROM, with normal tone. Right lower extremity decreased range of motion due to pain, tolerates some weightbearing with pain. Less than 3/5. NEURO: CN 2-12 grossly intact. Sensation intact in all extremities. No tremor noted in 4 extremities. POSTURE and GAIT: Sitting posture good. Balance appears reasonable. Gait deferred until seen with therapy. PSYCH: Alert, orientated x3, affect flattened. Seems part of issue is motivational, likely depression related as well. Insight appears intact so far, will monitor. - Constitutional Vitals: Vital Signs - 12hr 06/29/19 06/29/19 04:36 07:40 Temperature 36.9 C 36.6 C Pulse Rate 79 69 Respiratory 18 16 Rate Blood Pressure 101/27 Blood Pressure 105/54 [Left] O2 Sat by Pulse 94 95 Oximetry - Allied health notes Allied health notes reviewed: nursing, PT, OT FIMS assessment as documented by PT/OT/ST: Grooming Patient cleans teeth/dentures: Yes: S/U Patient benson/brushes hair: Yes: S/U Patient washes, rinses and Yes: S/U dries face: Patient washes, rinses and Yes: S/U dries hands: Patient applies make-up: No Patient performs (no make-up/ 03/03 (100%) shaving): Grooming FIM Score 5. Supervision ([place] applies toothpaste or opens containers.) Toileting Toileting Device Bedpan Toileting FIM Score 2. Maximal Assistance (Patient = 25% or more) Social interaction/Memory/Problem solving Social Interaction FIM Score 3. Moderate Assistance (Interacts appropriately 50-74%.) Memory FIM Score 4. Minimal Assistance (Recognizes and remembers 75-90%.) Problem Solving FIM Score 3. Moderate Assistance (Solves routine problems 50-74%.) Transfers Mode of Locomotion: Wheelchair Bed/Chair/Wheelchair Transfers 4. Minimal Assistance (Patient = 75% or more. FIM Score Needs touching.) Toilet Transfers FIM Score 4. Minimal Assistance (Patient = 75% or more. Needs touching.) Patient transferred to: Shower Shower Transfers FIM Score 3. Moderate Assistance (Patient = 50% or more. Some lifting.) Locomotion- walk/wheelchair Most Frequent Mode of Wheelchair Locomotion: Ambulation Distance 0 Walking FIM Score 0. Activity does not occur Wheelchair Propulsion Distance 150 Wheelchair FIM Score 4. Minimal Assistance (Patient = 75% or more. Minimum of 150 ft.) Eating Eating FIM Score 3. Moderate Assistance (Patient = 50% or more) Dressing-Upper body Patient retrieves clothing No items: Patient applies/removes UE n/a prosthesis or orthosis: Upper Body Dressing FIM Score 5. Supv./Set-Up ([place] sets out clothes or applies pros./orth.) Dressing-lower body Patient retrieves clothing No items: Patient applies/removes LE n/a prosthesis or orthosis: Lower Body Dressing FIM Score 3. Moderate Assistance (Patient = 50% or more) - Labs CBC & Chem 7: 06/28/19 06:52 06/28/19 06:52 Labs: Laboratory Results - last 72 hr 06/28/19 06/28/19 06:52 06:52 WBC 7.1 RBC 3.26 L Hgb 9.7 L Hct 28.4 L MCV 87 MCH 30 MCHC 34 RDW 15.0 Plt Count 779 H Sodium 140 Potassium 4.4 Chloride 103.3 Carbon Dioxide 26 Anion Gap 15 BUN 19 H Creatinine 0.5 L Estimated GFR > 60 BUN/Creatinine Ratio 38 Glucose 120 H Calcium 9.1 Assessment and Plan Right hip fracture: IM nail on 06/16/2019. Continue wound care, partial weightbearing, DVT prophylaxis. Pain medications have been adjusted for preparation to improve increase weightbearing activities. Monitor for any signs of injury and or possible infection. Right humerus fracture: Underwent ORIF on 06/09/2019. Continue to monitor for any signs of infection (reported dog bite) and or signs of DVT. monitor Dehydration: Improved. Monitor Hypothyroidism: Continue medications monitor Depression: restarted zoloft, monitor for s/s of worsening condition. Denies SI currently. Psych consult obtained Alcohol abuse: Restart thiamine and folic acid along with multivitamin. Patient should be out of danger for withdrawal but will monitor for any signs or symptoms of withdrawal/DTs. Anemia: started iron, vit c, folate, B12. Monitor. Appears to be post- operative blood loss. Hgb was normal on initial presentation Z73.6 ADL dysfunction: OT will work on improving ability to perform ADLs (including assistive devices) to increase independence and decrease caregiver burden and improve functional transfers and mobility training. R26.2 Difficulty walking: PT will work on gait training and proper use of assistive devices and advance as appropriate to use of stairs and outside ambulation on uneven surfaces. R26.81 Unsteadiness on feet: PT will work on improving static and dynamic sitting and standing balance as well as proper use of assistive devices to decrease risk of falls. R26.89 Abnormality of gait: PT will work to improve safety and efficiency of gait through neuromotor training and gait training along with instruction on proper use of assistive devices. M62.81 Muscle weakness: PT & OT will work on strengthening exercises to improve functional strength including mixture of closed and open kinetic chain exercises. R53.81 Debility: PT & OT will work on improving overall functional status to improve participation with ADLs, mobility and social involvement. R53.83 Fatigue: PT & OT will work on improving endurance through aerobic exercises and therapeutic activity while monitoring patients tolerance for activity and vital signs as needed. DVT ppx: Lovenox Pain: Continue physical modalities in therapy and pain medications as needed to achieve functional pain control. Medications adjusted for pain control levels considering increased weightbearing with therapy Sleep: trazodone, monitor Bowel: Monitor and address as needed. PRN medications made available Appetite: Monitor and address as needed. Discharge planning: Pending therapy progress and care plan meeting. Will continue discussion with therapy team, SW, patient Restrictions/ Precautions: Falls WB status: Partial RUE/RLE. RUE hinged elbow brace with 90-45*. aROM ok Functional Hx: ADLs: Independent Cognition: Independent Mobility: No AD Barriers to Discharge: Decreased mobility and ability to perform self care, balance deficits, weakness. Will concentrate on transfers. Estimated Length of Stay: 7-14 days Discharge Destination: Home to [facility]
[2019-06-29] MEDS: DESYREL PO SCH (21:12)
[2019-06-30] MEDS: SYNTHROID PO SCH (05:09)
[2019-06-30] MEDS: FOLVITE PO SCH (08:50)
[2019-06-30] MEDS: ROXICODONE PO PRN ×2 (08:50→21:34)
[2019-06-30] MEDS: LOVENOX SUB-Q SCH (08:50)
[2019-06-30] MEDS: FEOSOL PO SCH ×2 (08:50→21:35)
[2019-06-30] MEDS: VITAMIN B-1 PO SCH (08:51)
[2019-06-30] MEDS: PEPCID PO SCH ×2 (08:51→21:34)
[2019-06-30] MEDS: VITAMIN B-12 PO SCH (08:51)
[2019-06-30] MEDS: VITAMIN C PO SCH ×2 (08:52→21:34)
[2019-06-30] MEDS: ZOLOFT PO SCH (08:52)
--- NOTE | 2019-06-30 09:36 | Progress Note ---
Subjective Date of service: 06/30/19 Principal diagnosis: R hip fracture Interval history: 63-year-old female who was recently discharged after a right humerus fracture and presented back to the ER one day later with pain in the right hip. X-ray showed a right intertrochanteric hip fracture. Ortho was consulted and she was taken for surgery and received an IM nail. She was placed on CIDE protocol for alcohol abuse. She is anemic and this appears to be a combination of both chronic disease as well as postoperative. Electrolytes were monitored and replaced as needed. She does have cognitive issues which may be related to either dementia and or alcohol abuse. On exam patient appears to be depressed and is currently refusing further treatment. Does have a history of bipolar disorder noted in the record without any treatment apparently. We'll attempt to determine what medications she's been on in the past and her restart medications as needed. Also history of EtOH dependence which she has downplayed. Patient is participating in therapy and making slow progress. Needs encou ragement, improved initiation at times. Agreed to participate today. Discussed need to participate so she can return home. Taking rest breaks as needed. +BM. Denies palpitations, dyspnea, cough, N/V. Pain in RLE better with medications. Poor overall nutrition and not eating well, likely depression related. Discussed need for nutrition in order to heal. RUE wound warm without drainage. Will move to discharge as soon as she is performing transfers. Discussed in team conference. Improved ability to transfer and even ambulated. Has difficulty abiding by weight bearing restrictions. Will d/c Thursday back to [facility] with . Unsafe to ambulate at this time due to weight bearing restriction and inability to abide by them. Will discharge with wheelchair. All records, vitals, labs and medications were reviewed. No other issues per patient, nursing or therapy. Objective - Exam Narrative Exam: MUSCULOSKELETAL SPECIALTY EXAM CONSTITUTIONAL: Well developed, appropriately groomed, somewhat cooperative EENT: EOMI. Hearing intact to soft voice RESPIRATORY: Clear to auscultation bilaterally, no increased work of breathing CARDIOVASCULAR: Regular Rate/ Rhythm. Slight swelling in RUE otherwise no swelling, edema or tenderness in BUE or BLE. All extremities warm. GI: + bowel sounds, soft, NTTP, nondistended. INTEGUMENTARY: Wound on right upper extremity, warm without drainage and surgical wound on right lower extremity otherwise, Normal, no lesion, rash, masses or bruising noted in extremities. MUSCULOSKELETAL: LUE and LLE normal without defect, crepitus, subluxation, effusion, arthritic ch anges or TTP. Right upper extremity with fracture s/p ORIF, wound. Right lower extremity with hip fracture has been repaired, wound. LUE 4+/5, good ROM, with normal tone. Right upper extremity decreased range of motion with inability to test strength due to fracture. LLE 4+/5 good ROM, with normal tone. Right lower extremity decreased range of motion due to pain, tolerates some weightbearing with pain. Less than 3/5. NEURO: CN 2-12 grossly intact. Sensation intact in all extremities. No tremor noted in 4 extremities. POSTURE and GAIT: Sitting posture good. Balance appears reasonable. Gait slow and not able to abide by w/b restrictions. PSYCH: Alert, orientated x3, affect flattened. Seems part of issue is motivational, likely depression related as well. Insight appears intact so far, will monitor. - Constitutional Vitals: Vital Signs - 12hr 06/29/19 06/30/19 22:00 04:56 Temperature 36.4 C L Pulse Rate 75 Pulse Rate [ 20 L Left Radial] Respiratory 18 Rate Respiratory 12 Rate [Right Hip ] Respiratory 18 Rate [right arm ] Blood Pressure 100/41 O2 Sat by Pulse 97 Oximetry - Allied health notes Allied health notes reviewed: nursing, PT, OT FIMS assessment as documented by PT/OT/ST: Grooming Patient cleans teeth/dentures: Yes: S/U Patient benson/brushes hair: Yes: S/U Patient washes, rinses and Yes: S/U dries face: Patient washes, rinses and Yes: S/U dries hands: Patient applies make-up: No Patient performs (no make-up/ 03/03 (100%) shaving): Grooming FIM Score 5. Supervision (Eldridge applies toothpaste or opens containers.) Toileting Toileting Device Bedpan Toileting FIM Score 2. Maximal Assistance (Patient = 25% or more) Social interaction/Memory/Problem solving Social Interaction FIM Score 4. Minimal Assistance (Interacts appropriately 75-90%.) Memory FIM Score 5. Supervision (Needs cueing <10%, stressful/ unfamiliar situations.) Problem Solving FIM Score 4. Minimal Assistance (Solves routine problems 75-90%.) Transfers Mode of Locomotion: Wheelchair Bed/Chair/Wheelchair Transfers 4. Minimal Assistance (Patient = 75% or more. FIM Score Needs touching.) Toilet Transfers FIM Score 4. Minimal Assistance (Patient = 75% or more. Needs touching.) Patient transferred to: Shower Shower Transfers FIM Score 3. Moderate Assistance (Patient = 50% or more. Some lifting.) Locomotion- walk/wheelchair Most Frequent Mode of Wheelchair Locomotion: Ambulation Distance 0 Walking FIM Score 0. Activity does not occur Wheelchair Propulsion Distance 150 Wheelchair FIM Score 5. Supervision (Minimum 150 ft. supv./cues or 50 ft. independently.) Eating Eating FIM Score 3. Moderate Assistance (Patient = 50% or more) Dressing-Upper body Patient retrieves clothing No items: Patient applies/removes UE n/a prosthesis or orthosis: Upper Body Dressing FIM Score 5. Supv./Set-Up (Eldridge sets out clothes or applies pros./orth.) Dressing-lower body Patient retrieves clothing No items: Patient applies/removes LE n/a prosthesis or orthosis: Lower Body Dressing FIM Score 3. Moderate Assistance (Patient = 50% or more) - Labs CBC & Chem 7: 06/28/19 06:52 06/28/19 06:52 Labs: Laboratory Results - last 72 hr 06/28/19 06/28/19 06:52 06:52 WBC 7.1 RBC 3.26 L Hgb 9.7 L Hct 28.4 L MCV 87 MCH 30 MCHC 34 RDW 15.0 Plt Count 779 H Sodium 140 Potassium 4.4 Chloride 103.3 Carbon Dioxide 26 Anion Gap 15 BUN 19 H Creatinine 0.5 L Estimated GFR > 60 BUN/Creatinine Ratio 38 Glucose 120 H Calcium 9.1 Assessment and Plan Right hip fracture: IM nail on 06/16/2019. Continue wound care, partial weightbearing, DVT prophylaxis. Pain medications have been adjusted for preparation to improve increase weightbearing activities. Monitor for any signs of injury and or possible infection. Right humerus fracture: Underwent ORIF on 06/09/2019. Continue to monitor for any signs of infection (reported dog bite) and or signs of DVT. monitor Dehydration: Improved. Monitor Hypothyroidism: Continue medications monitor Depression: restarted zoloft, monitor for s/s of worsening condition. Denies SI currently. Psych consult obtained Alcohol abuse: Restart thiamine and folic acid along with multivitamin. Patient should be out of danger for withdrawal but will monitor for any signs or symptoms of withdrawal/DTs. Anemia: started iron, vit c, folate, B12. Monitor. Appears to be post- operative blood loss. Hgb was normal on initial presentation Z73.6 ADL dysfunction: OT will work on improving ability to perform ADLs (including assistive devices) to increase independence and decrease caregiver burden and improve functional transfers and mobility training. R26.2 Difficulty walking: PT will work on gait training and proper use of assistive devices and advance as appropriate to use of stairs and outside ambulation on uneven surfaces. R26.81 Unsteadiness on feet: PT will work on improving static and dynamic sitting and standing balance as well as proper use of assistive devices to decrease risk of falls. R26.89 Abnormality of gait: PT will work to improve safety and efficiency of gait through neuromotor training and gait training along with instruction on proper use of assistive devices. M62.81 Muscle weakness: PT & OT will work on strengthening exercises to improve functional strength including mixture of closed and open kinetic chain exercises. R53.81 Debility: PT & OT will work on improving overall functional status to improve participation with ADLs, mobility and social involvement. R53.83 Fatigue: PT & OT will work on improving endurance through aerobic exercises and therapeutic activity while monitoring patients tolerance for activity and vital signs as needed. DVT ppx: Lovenox Pain: Continue physical modalities in therapy and pain medications as needed to achieve functional pain control. Medications adjusted for pain control levels considering increased weightbearing with therapy Sleep: trazodone, monitor Bowel: Monitor and address as needed. PRN medications made available Appetite: Monitor and address as needed. Discharge planning: Pending therapy progress and care plan meeting. Will continue discussion with therapy team, SW, patient Restrictions/ Precautions: Falls WB status: Partial RUE/RLE. RUE hinged elbow brace with 90-45*. aROM ok Functional Hx: ADLs: Independent Cognition: Independent Mobility: No AD Barriers to Discharge: Decreased mobility and ability to perform self care, balance deficits, weakness. Will concentrate on transfers. Estimated Length of Stay: 7-14 days Discharge Destination: Home to [facility]
[2019-06-30] MEDS: DESYREL PO SCH (21:35)
[2019-07-01] MEDS: SYNTHROID PO SCH (06:42)
[2019-07-01] MEDS: VITAMIN B-12 PO SCH (08:48)
[2019-07-01] MEDS: LOVENOX SUB-Q SCH (08:48)
[2019-07-01] MEDS: ZOLOFT PO SCH (08:48)
[2019-07-01] MEDS: FEOSOL PO SCH ×2 (08:53→22:34)
[2019-07-01] MEDS: FOLVITE PO SCH (08:53)
[2019-07-01] MEDS: PEPCID PO SCH ×2 (08:53→22:34)
[2019-07-01] MEDS: VITAMIN B-1 PO SCH (08:55)
[2019-07-01 10:05] LABS: Hematocrit 32.8 % (30.3-42.9); Hemoglobin 10.8 gm/dl (10.1-14.3); Mean Corpuscular HGB Conc 33 % (30-34); Mean Corpuscular Volume 88 fl (79-97); Platelet Count 679 K/mm3 (140-440); Red Blood Count 3.75 M/mm3 (3.65-5.03); Red Cell Distribution Width 15.5 % (13.2-15.2)
[2019-07-01 10:07] LABS: BUN/Creatinine Ratio 42; Blood Urea Nitrogen 21 mg/dL (7-17); Calcium 9.3 mg/dL (8.4-10.2); Hemolysis Index 28
--- NOTE | 2019-07-01 10:43 | Discharge Summary ---
Providers - Providers Date of Admission: 06/20/19 16:36 Date of discharge: 07/01/19 Attending physician: JOEL CLAYTON III, MD 06/20/19 16:36 Consult to Wound/ET Nurse [CONS] Routine Reason For Exam: wound eval Occupational Therapy Evaluate and Treat [CONS] Routine Comment: Reason For Exam: ADL dysfunction Physical Therapy Evaluation and Treat [CONS] Routine Comment: Reason For Exam: Mobility Dysfunction 06/20/19 16:48 Consult to Case Management [CONS] Routine Services Needed at Discharge: Home Health Services Notified:: cm notified 06/24/19 14:40 psychiatry consult [Consult to Mental Health] [CONS] Routine Reason For Exam: Depression, counseling Place consult to:: Psychiatry Notified:: notified by Dr. Clayton Phone number called:: [phone] Comment:: COMPLETED Primary care physician: [facility] Hospitalization Reason for admission: Right hip fracture Condition: Fair Pertinent studies: R Hip and humerus XR - no acute change Hospital course: 63-year-old female who was recently discharged after a right humerus fracture and presented back to the ER one day later with pain in the right hip. X-ray showed a right intertrochanteric hip fracture. Ortho was consulted and she was taken for surgery and received an IM nail. She was placed on CIWA protocol for alcohol abuse. She is anemic and this appears to be a combination of both chronic disease as well as postoperative. Electrolytes were monitored and replaced as needed. She does have cognitive issues which may be related to either dementia and or alcohol abuse. On exam patient appears to be depressed and is currently refusing further treatment. Does have a history of bipolar disorder noted in the record without any treatment apparently. We'll attempt to determine what medications she's been on in the past and her restart medications as needed. Also history of EtOH dependence which she has downplayed. Patient is suffering from major depression disorder and we have restarted Zoloft which she states helped in the past. Also took the time to consult psychiatry who saw her recommended follow-up and increased her dose of Zoloft. Depression affected the patient's ability to perform with us in therapy and for most days it was a struggle to get her out of bed to actually participate. Also asked the inpatient psychiatric unit to look at her for possible admission there. In the end she ended up meeting the goals of being able to perform transfers so that she could return to her previous living conditions at a personal [facility]. She's had difficulty with maintaining her weightbearing restrictions. She is partial weightbearing in both the right upper extremity and the right lower extremity until changed by her surgeon Dr. Matos. There was little confusion in the beginning due to other orders and notes found in the medical record but the partial weightbearing status was confirmed personally with Dr. Matos. She also is to have a elbow brace on the right which should lock at 90 and 45. Active range of motion is okay. We're awaiting the elbow brace delivery. In the inpatient was able to perform transfers to her wheelchair utilizing walker and/or one person for assistance. We will discharge her home for wheelchair. She is unsafe to ambulate utilizing a walker at this point due to her inability to follow weightbearing or cautions. She will likely need a wheelchair for 6 months or less. Blood pressure is been on the low side but she has always been asymptomatic even with his lower values. We did check on the prior admissions and noted that she was running on the low end there as well. Did give her IV fluids several times with very minimal to no effect on her blood pressure. Her appetite is decreased and she primarily just drinks ensure. Have encouraged her numerous times to trying a little bit every once in a while she would eat but often times she would not touch her meals. Surgical wounds are healing well. The elbow still tends to be a little warm from inflammation however white count has been normal and she has no drainage at the wound site. The hip surgical wound is healed well and we will remove nidia today. She attempted to get up on her own without calling for assistance and fell going to the bathroom. She denied any issues with pain however we did obtain x-rays of the right upper extremity and lower extremity to ensure that surgical hardware was not displaced in these x-rays were negative. Disposition: DC-01 TO HOME OR SELFCARE Time spent for discharge: >30 mins Core Measure Documentation - Palliative Care Palliative Care/ Comfort Measures: Not Applicable - Core Measures Any of the following diagnoses?: none Exam - Physical Exam Narrative exam: MUSCULOSKELETAL SPECIALTY EXAM CONSTITUTIONAL: Well developed, appropriately groomed, somewhat cooperative EENT: EOMI. Hearing intact to soft voice RESPIRATORY: Clear to auscultation bilaterally, no increased work of breathing CARDIOVASCULAR: Regular Rate/ Rhythm. Slight swelling in RUE otherwise no swelling, edema or tenderness in BUE or BLE. All extremities warm. GI: + bowel sounds, soft, NTTP, nondistended. INTEGUMENTARY: Wound on right upper extremity, warm without drainage and surgical wound on right lower extremity otherwise, Normal, no lesion, rash, masses or bruising noted in extremities. MUSCULOSKELETAL: LUE and LLE normal without defect, crepitus, subluxation, effusion, arthritic changes or TTP. Right upper extremity with fracture s/p ORIF, wound. Right lower extremity with hip fracture has been repaired, wound. LUE 4+/5, good ROM, with normal tone. Right upper extremity decreased range of motion with inability to test strength due to fracture. LLE 4+/5 good ROM, with normal tone. Right lower extremity decreased range of motion due to pain, tolerates some weightbearing with pain. Less than 3/5. NEURO: CN 2-12 grossly intact. Sensation intact in all extremities. No tremor noted in 4 extremities. POSTURE and GAIT: Sitting posture good. Balance appears reasonable. Gait slow and not able to abide by w/b restrictions. Will discharge at wheelchair level due to safety concerns. Patient unable to maintain weightbearing restrictions or to ambulate with rolling walker safely PSYCH: Alert, orientated x3, affect flattened. Seems part of issue is motivational, likely depression related as well. Insight appears intact so far, will monitor. - Constitutional Vitals: Temp Pulse Resp BP Pulse Ox 36.6 C 77 18 87/33 92 07/01/19 08:00 07/01/19 08:00 07/01/19 08:00 07/01/19 08:00 07/01/19 04:59 Plan Activity: advance as tolerated, up only with assistance, fall precautions Weight Bearing Status: Partial Weight Bearing (right upper extremity, right low er extremity until cleared by Dr. Matos) Diet: regular Wound: open to air Special Instructions: record daily BP diary, physical therapy, occupational therapy, home health RN Durable Medical Equipment Needed Upon Discharge: Wheelchair, Bedside Commode Additional Instructions: Follow up with [facility] for Outpatient Psychiatric services Follow up with: MICHAEL SHERWOOD MD [Primary Care Provider] - 7 Days LAUREEN MATOS MD [Staff Physician] - 7 Days Prescriptions: Ferrous Sulfate [Feosol 325 MG tab] 325 mg PO BID #60 tablet Folic Acid [Folvite] 1 mg PO QDAY #30 tablet Enoxaparin [Lovenox] 40 mg SUB-Q QDAY #14 syringe Famotidine [Pepcid] 20 mg PO BID #60 tablet oxyCODONE [roxiCODONE] 5 mg PO Q6H PRN #30 tablet PRN Reason: Pain, Moderate (4-6) Levothyroxine [Synthroid] 75 mcg PO DAILY@0600 #30 tablet Thiamine [Vitamin B-1] 100 mg PO QDAY #30 tablet Cyanocobalamin [Vitamin B-12] 1,000 mcg PO QDAY #30 tablet Ascorbic Acid [Vitamin C] 500 mg PO BID #60 tablet Sertraline [Zoloft] 100 mg PO QDAY #60 tablet
[2019-07-01] MEDS: VITAMIN C PO SCH ×2 (11:29→22:41)
[2019-07-01] MEDS: ROXICODONE PO PRN ×2 (18:37→22:52)
[2019-07-01] MEDS: DESYREL PO SCH (22:34)
[2019-07-02] MEDS: SYNTHROID PO SCH (07:47)
[2019-07-02] MEDS: LOVENOX SUB-Q SCH (09:24)
[2019-07-02] MEDS: PEPCID PO SCH ×2 (09:25→21:18)
[2019-07-02] MEDS: VITAMIN B-12 PO SCH (09:25)
[2019-07-02] MEDS: VITAMIN B-1 PO SCH (09:25)
[2019-07-02] MEDS: FOLVITE PO SCH (09:25)
[2019-07-02] MEDS: FEOSOL PO SCH ×2 (09:25→21:18)
[2019-07-02] MEDS: ZOLOFT PO SCH (09:25)
[2019-07-02] MEDS: VITAMIN C PO SCH ×2 (09:25→21:18)
[2019-07-02] MEDS: ROXICODONE PO PRN (11:23)
[2019-07-02] MEDS: DESYREL PO SCH (21:18)
[2019-07-03] MEDS: ROXICODONE PO PRN ×2 (00:33→13:20)
[2019-07-03] MEDS: SYNTHROID PO SCH (06:00)
[2019-07-03] MEDS: LOVENOX SUB-Q SCH (09:34)
[2019-07-03] MEDS: FEOSOL PO SCH ×2 (09:34→21:18)
[2019-07-03] MEDS: VITAMIN B-12 PO SCH (09:34)
[2019-07-03] MEDS: ZOLOFT PO SCH (09:35)
[2019-07-03] MEDS: PEPCID PO SCH ×2 (09:35→21:18)
[2019-07-03] MEDS: VITAMIN B-1 PO SCH (09:35)
[2019-07-03] MEDS: FOLVITE PO SCH (09:35)
[2019-07-03] MEDS: VITAMIN C PO SCH (21:18)
[2019-07-03] MEDS: DESYREL PO SCH (21:18)
[2019-07-04] MEDS: SYNTHROID PO SCH (05:31)
[2019-07-04] MEDS: FOLVITE PO SCH (08:24)
[2019-07-04] MEDS: ZOLOFT PO SCH (08:24)
[2019-07-04] MEDS: VITAMIN B-1 PO SCH (08:24)
[2019-07-04] MEDS: VITAMIN C PO SCH (08:25)
[2019-07-04] MEDS: FEOSOL PO SCH (08:25)
[2019-07-04] MEDS: PEPCID PO SCH (08:25)
[2019-07-04] MEDS: LOVENOX SUB-Q SCH (08:25)
[2019-07-04] MEDS: VITAMIN B-12 PO SCH (08:25)
[2019-07-04] MEDS: ROXICODONE PO PRN (10:59)
[2019-07-04 12:55] VITALS: BP 107/45
== END 2019-07-04 17:00 | disposition home or self-care (01) | DRG 536 ==
LOC: UNDOADMIN 16:28 → 3A 16:28 → 3B 16:36
PROVIDERS: ADMIT Physical Medicine & Rehabilitation; ATTEND Physical Medicine & Rehabilitation
DX: S72.141A Displaced intertrochanteric fracture of right femur, initial encounter for closed fracture (principal); F31.9 Bipolar disorder, unspecified; D64.9 Anemia, unspecified; E03.9 Hypothyroidism, unspecified; Z60.2 Problems related to living alone; E86.0 Dehydration; R53.81 Other malaise; Z82.49 Family history of ischemic heart disease and other diseases of the circulatory system; Z83.3 Family history of diabetes mellitus
CPT/HCPCS: 36415; 80048; 80053; 82962; 83735; 85007; 85025; 85027; 94640; G0378; J1650; J7030